=== PATIENT | female | born 1935 | race Caucasian/White ===

== ENCOUNTER 2020-09-30 14:09 | Inpatient (IN) | payer MEDICARE ==
[2020-09-30] MEDS ORDERED: Sodium Chloride 0.9% 10 ML Syringe FLUSH PRN (14:46)
--- NOTE | 2020-09-30 15:04 | EDM.PDOC ---
ED HPI GENERAL MEDICAL PROBLEM - General Chief Complaint: Fever Stated Complaint: FEVER Time Seen by Provider: 09/30/20 14:34 Source of Information: Reports: Patient, RN Notes Reviewed (Vital signs: Heart rate 112, temperature 99.2 F, respiratory rate of 20 breaths/min, blood pressure is 134/65, O2 sats are 97% on room air.) History Limitations: Reports: No Limitations - History of Present Illness INITIAL COMMENTS - FREE TEXT/NARRATIVE: Patient is an 84-year-old female who presents to the ED for a fever and sore throat. Patient notes that this has been present since around Tuesday, she notes that she has not been eating much because severely hurts to swallow anything. She has also been treating ongoing urinary tract infections, and last finished her antibiotic on morning. Patient states she does have a history of fibromyalgia, and notes that she aches constantly, specifically in her knees which seem to be worse today as well. Patient notes that she has been on 2 different antibiotic courses in August for the urinary tract infection. She is complaining of some mild nausea but no vomiting or diarrhea, no cough or shortness of breath or any sort of chest pain or discomfort. She is denying any dysuria, frequency or urgency. She has had a fever at home as high as 102F and she is taken some Tylenol and that seems to help. Patient's primary care provider is Norma Faria but also sees Maria M Tovar in the clinic. Generalized Pain Score (Numeric/FACES): 6 Buttock Pain Score (Numeric/FACES): 2 lower back/bilateral knee Pain Score (Numeric/FACES): 5 - Related Data Allergies Allergy/AdvReac Type Severity Reaction Status Date / Time Iodinated Contrast Media Allergy Hives Verified 09/30/20 14:43 iodine Allergy Hives Verified 09/30/20 14:43 Penicillins Allergy Hives Verified 09/30/20 14:43 Sulfa (Sulfonamide Allergy Hives Verified 09/30/20 14:43 Antibiotics) Home Meds: Home Meds Amitriptyline [Elavil] 25 mg PO BEDTIME 09/30/20 [History] Brimonidine Tartrate [Brimonidine Tartrate 0.2% Ophth Soln] 1 drop EYEBOTH BID 09/30/20 [History] Hydrochlorothiazide/Lisinopril [Lisinopril/HCTZ 20-12.5 MG] 20 - 25 mg PO DAILY 09/30/20 [History] metFORMIN [Glucophage] 500 mg PO DAILY 09/30/20 [History] traMADol [Ultram] 50 - 100 mg PO Q6H PRN 09/30/20 [History] ED ROS ENT - Review of Systems Review Of Systems: Comprehensive ROS is negative, except as noted in HPI. ED EXAM, ENT - Physical Exam Exam: See Below Exam Limited By: No Limitations General Appearance: Alert, WD/WN, No Apparent Distress Nose: Normal Inspection Mouth/Throat: Normal Inspection, Normal Gums, Normal Lips, Normal Teeth, Tonsillar Erythema (bilateral) Head: Atraumatic, Normocephalic Neck: Normal Inspection, Supple, Non-Tender, Full Range of Motion Respiratory/Chest: No Respiratory Distress, Lungs Clear, Normal Breath Sounds, No Accessory Muscle Use, Chest Non-Tender Cardiovascular: Normal Peripheral Pulses, Regular Rate, Rhythm, No Edema GI/Abdominal: Normal Bowel Sounds, Soft, Non-Tender, No Distention, No Mass Extremities: Normal Inspection, Normal Capillary Refill Neurological: Alert, Oriented, Normal Cognition, No Motor/Sensory Deficits Psychiatric: Normal Affect, Normal Mood Skin: Warm, Dry, Intact, Normal Color, No Rash #1 Interpretation EKG Date: 09/30/20 Time: 15:50 Rhythm: NSR (sinus arryhthmia) Rate (Beats/Min): 94 [place]onda: Normal P-Wave: Present QRS: Normal ST-T: Normal QT: Normal Comparison: NA - No Prior EKG EKG Interpretation Comments: No obvious ischemia or acute ST changes noted, reviewed by myself and Dr. Ryan. Course - Vital Signs Last Recorded V/S: Last Vital Signs Temp 97.3 F 10/02/20 15:43 Pulse 77 10/02/20 15:43 Resp 19 10/02/20 15:43 BP 118/65 10/02/20 15:43 Pulse Ox 96 10/02/20 17:20 - Orders/Labs/Meds Orders: Active Orders 24 hr Category Date Time Status CBC WITH AUTO DIFF [HEME] DAILY Lab 10/03/20 05:00 Ordered CBC WITH AUTO DIFF [HEME] DAILY Lab 10/04/20 05:00 Ordered CBC WITH AUTO DIFF [HEME] DAILY Lab 10/05/20 05:00 Ordered Medication Orders Acetaminophen (Tylenol) 650 mg RECTAL Q6H PRN PRN Reason: Pain (mild 1-3) Albuterol/Ipratropium (Duoneb 3.0-0.5 Mg/3 Ml) 3 ml NEB Q4H PRN PRN Reason: Shortness Of Breath/wheezing Azithromycin (Zithromax) 500 mg PO DAILY [facility] Stop: 10/04/20 09:01 Last Admin: 10/02/20 11:00 Dose: 500 mg Documented by: OWEN Benzocaine/Menthol (Cepacol Sore Throat) 1 lozenge MUCMEM Q2HR PRN PRN Reason: Sore Throat Last Admin: 10/02/20 20:23 Dose: 1 lozenge Documented by: Admin: 10/02/20 11:00 Dose: 1 lozenge Documented by: OWEN Brimonidine Tartrate (Alphagan 0.2% Ophth Soln) 0 ml EYEBOTH BID [facility] Last Admin: 10/02/20 20:24 Dose: 1 drop Documented by: Admin: 10/02/20 09:01 Dose: 1 drop Documented by: Admin: 10/01/20 21:17 Dose: 1 drop Documented by: Admin: 10/01/20 08:42 Dose: 1 drop Documented by: SAMAN Cholecalciferol (Vitamin D3) 10,000 unit PO DAILY [facility] Last Admin: 10/02/20 09:01 Dose: 10,000 unit Documented by: Admin: 10/01/20 10:58 Dose: 10,000 unit Documented by: SAMAN Docusate Sodium (Colace) 100 mg PO BID PRN PRN Reason: Constipation Enoxaparin Sodium (Lovenox) 40 mg SUBCUT DAILY [facility] Last Admin: 10/02/20 09:02 Dose: 40 mg Documented by: OWEN Famotidine (Pepcid) 20 mg PO BEDTIME [facility] Last Admin: 10/02/20 20:23 Dose: 20 mg Documented by: BRAD Hydralazine HCl (Apresoline) 10 mg IVPUSH Q4H PRN PRN Reason: Hypertension Promethazine HCl 12.5 mg/ (Sodium Chloride) 50.5 mls @ 100 mls/hr IV Q6H PRN PRN Reason: Nausea/Vomiting Norepinephrine Bitartrate 4 mg (/ Dextrose/Water) 250 mls @ 7.5 mls/hr IV TITRATE [facility]; Protocol Last Titration: 10/01/20 08:43 Dose: 0 mcg/min, 0 mls/hr Documented by: Titration: 10/01/20 05:30 Dose: 1 mcg/min, 3.75 mls/hr Documented by: Titration: 10/01/20 01:43 Dose: 2 mcg/min, 7.5 mls/hr Documented by: Titration: 10/01/20 01:31 Dose: 3 mcg/min, 11.25 mls/hr Documented by: Titration: 09/30/20 23:41 Dose: 4 mcg/min, 15 mls/hr Documented by: Admin: 09/30/20 23:25 Dose: 2 mcg/min, 7.5 mls/hr Documented by: TYRA Ceftriaxone Sodium 2 gm/ (Sodium Chloride) 100 mls @ 200 mls/hr IV Q24H [facility] Last Admin: 10/02/20 20:22 Dose: 200 mls/hr Documented by: Infusion: 10/01/20 21:41 Dose: 200 mls/hr Documented by: Admin: 10/01/20 21:11 Dose: 200 mls/hr Documented by: YAJAIRA Insulin Human Lispro (Humalog) 0 unit SUBCUT QIDACANDBED [facility]; Protocol Last Admin: 10/02/20 17:20 Dose: Not Given Documented by: Admin: 10/02/20 12:15 Dose: 4 unit Documented by: Admin: 10/02/20 07:03 Dose: Not Given Documented by: Admin: 10/01/20 22:03 Dose: 1 unit Documented by: Admin: 10/01/20 17:49 Dose: Not Given Documented by: Admin: 10/01/20 11:03 Dose: 1 unit Documented by: Admin: 10/01/20 07:01 Dose: Not Given Documented by: Admin: 10/01/20 01:35 Dose: Not Given Documented by: AR Oxycodone HCl (Oxycodone) 5 mg PO Q6H PRN PRN Reason: Pain (moderate 4-6) Last Admin: 10/02/20 17:21 Dose: 5 mg Documented by: Admin: 10/02/20 09:01 Dose: 5 mg Documented by: Admin: 10/01/20 22:02 Dose: 5 mg Documented by: Admin: 10/01/20 15:47 Dose: 5 mg Documented by: Admin: 10/01/20 08:42 Dose: 5 mg Documented by: Admin: 10/01/20 01:09 Dose: 5 mg Documented by: AR Sanchez (Florastor) 500 mg PO BID [facility] Last Admin: 10/02/20 20:23 Dose: 500 mg Documented by: Admin: 10/02/20 09:01 Dose: 500 mg Documented by: Admin: 10/01/20 21:11 Dose: 500 mg Documented by: YAJAIRA Simvastatin (Zocor) 20 mg PO BEDTIME [facility] Last Admin: 10/02/20 20:23 Dose: 20 mg Documented by: Admin: 10/01/20 21:11 Dose: 20 mg Documented by: Admin: 10/01/20 00:56 Dose: 20 mg Documented by: AR Sodium Chloride (Saline Flush) 10 ml FLUSH ASDIRECTED PRN PRN Reason: Keep Vein Open Last Admin: 09/30/20 15:05 Dose: 10 ml Documented by: JADIEL Labs: Laboratory Tests 09/30/20 09/30/20 09/30/20 Range/Units 15:05 15:05 15:05 WBC 5.77 (3.98-10.04) K/mm3 RBC 4.12 (3.98-5.22) M/mm3 Hgb 11.4 (11.2-15.7) gm/dl Hct 36.3 (34.1-44.9) % MCV 88.1 (79.4-94.8) fl MCH 27.7 (25.6-32.2) pg MCHC 31.4 L (32.2-35.5) g/dl RDW Std Deviation 48.8 H (36.4-46.3) fL Plt Count 317 (182-369) K/mm3 MPV 10.0 (9.4-12.3) fl Neutrophils % (Manual) 75 H (40-60) % Band Neutrophils % 7 (0-10) % Lymphocytes % (Manual) 15 L (20-40) % Atypical Lymphs % 0 % Monocytes % (Manual) 3 (2-10) % Eosinophils % (Manual) 0 L (0.7-5.8) % Basophils % (Manual) 0 L (0.1-1.2) Toxic Granulation 2+ moderate Platelet Estimate Adequate Plt Morphology Comment Normal Anisocytosis 1+ slight RBC Morph Comment Not Reportable PT 10.5 (9.7-12.0) SECONDS INR 0.98 APTT 32.5 H (21.7-31.4) SECONDS D-Dimer, Quantitative 2.08 H (0.19-0.50) mg/L Puncture Site ABG pH (7.35-7.45) ABG pCO2 (35.0-45.0) mmHg ABG pO2 (80.0-100.0) mmHg ABG HCO3 (22.0-26.0) meq/L ABG O2 Saturation (96.0-97.0) % ABG Base Excess (-2-2.0) Andrés Test A-a Gradient mmHg O2 Delivery Device Oxygen Flow Rate FiO2 (21.00-100.00) % Sodium (136-145) mEq/L Potassium (3.5-5.1) mEq/L Chloride (98-107) mEq/L Carbon Dioxide (21-32) mEq/L Anion Gap (5-15) BUN (7-18) mg/dL Creatinine (0.55-1.02) mg/dL Est Cr Clr Drug Dosing mL/min Estimated GFR (MDRD) (>60) mL/min BUN/Creatinine Ratio (14-18) Glucose (83-115) mg/dL Lactic Acid (0.4-2.0) mmol/L Calcium (8.5-10.1) mg/dL Magnesium (1.8-2.4) mg/dl Ferritin (8-252) ng/ml Total Bilirubin (0.2-1.0) mg/dL AST (15-37) U/L ALT (14-59) U/L Alkaline Phosphatase (46-116) U/L Lactate Dehydrogenase (81-234) U/L Troponin I (0.00-0.056) ng/mL C-Reactive Protein 10.3 H* (<1.0) mg/dL NT-Pro-B Natriuret Pep (0-450) pg/mL Total Protein (6.4-8.2) g/dl Albumin (3.4-5.0) g/dl Globulin gm/dL Albumin/Globulin Ratio (1-2) Urine Color (Yellow) Urine Appearance (Clear) Urine pH (5.0-8.0) Ur Specific [place] (1.005-1.030) Urine Protein (Negative) Urine Glucose (UA) (Negative) Urine Ketones (Negative) Urine Occult Blood (Negative) Urine Nitrite (Negative) Urine Bilirubin (Negative) Urine Urobilinogen (0.2-1.0) Ur Leukocyte Esterase (Negative) U Hyaline Cast (Auto) (0-5) /lpf Urine RBC (0-5) /hpf Urine WBC (0-5) /hpf Ur Squamous Epith Cells (0-5) /hpf Amorphous Sediment (NOT SEEN) /hpf Urine Bacteria (FEW) /hpf Urine Mucus (FEW) /hpf Influenza Type A RNA (NEGATIVE) Influenza Type B RNA (NEGATIVE) SARS-CoV-2 RNA (HOLDEN) (NEGATIVE) Group A Strep (PCR) (NOT DETECT) 09/30/20 09/30/20 09/30/20 Range/Units 15:05 15:05 15:05 WBC (3.98-10.04) K/mm3 RBC (3.98-5.22) M/mm3 Hgb (11.2-15.7) gm/dl Hct (34.1-44.9) % MCV (79.4-94.8) fl MCH (25.6-32.2) pg MCHC (32.2-35.5) g/dl RDW Std Deviation (36.4-46.3) fL Plt Count (182-369) K/mm3 MPV (9.4-12.3) fl Neutrophils % (Manual) (40-60) % Band Neutrophils % (0-10) % Lymphocytes % (Manual) (20-40) % Atypical Lymphs % % Monocytes % (Manual) (2-10) % Eosinophils % (Manual) (0.7-5.8) % Basophils % (Manual) (0.1-1.2) Toxic Granulation Platelet Estimate Plt Morphology Comment Anisocytosis RBC Morph Comment PT (9.7-12.0) SECONDS INR APTT (21.7-31.4) SECONDS D-Dimer, Quantitative (0.19-0.50) mg/L Puncture Site ABG pH (7.35-7.45) ABG pCO2 (35.0-45.0) mmHg ABG pO2 (80.0-100.0) mmHg ABG HCO3 (22.0-26.0) meq/L ABG O2 Saturation (96.0-97.0) % ABG Base Excess (-2-2.0) Andrés Test A-a Gradient mmHg O2 Delivery Device Oxygen Flow Rate FiO2 (21.00-100.00) % Sodium 136 (136-145) mEq/L Potassium 3.7 (3.5-5.1) mEq/L Chloride 95 L (98-107) mEq/L Carbon Dioxide 30 (21-32) mEq/L Anion Gap 14.7 (5-15) BUN 21 H (7-18) mg/dL Creatinine 1.3 H (0.55-1.02) mg/dL Est Cr Clr Drug Dosing 28.99 mL/min Estimated GFR (MDRD) 39 (>60) mL/min BUN/Creatinine Ratio 16.2 (14-18) Glucose 126 H (83-115) mg/dL Lactic Acid (0.4-2.0) mmol/L Calcium 8.6 (8.5-10.1) mg/dL Magnesium 1.2 L (1.8-2.4) mg/dl Ferritin 141 (8-252) ng/ml Total Bilirubin 0.4 (0.2-1.0) mg/dL AST 25 (15-37) U/L ALT 28 (14-59) U/L Alkaline Phosphatase 81 (46-116) U/L Lactate Dehydrogenase 218 (81-234) U/L Troponin I < 0.017 (0.00-0.056) ng/mL C-Reactive Protein (<1.0) mg/dL NT-Pro-B Natriuret Pep 474 H (0-450) pg/mL Total Protein 7.4 (6.4-8.2) g/dl Albumin 2.7 L (3.4-5.0) g/dl Globulin 4.7 gm/dL Albumin/Globulin Ratio 0.6 L (1-2) Urine Color (Yellow) Urine Appearance (Clear) Urine pH (5.0-8.0) Ur Specific [place] (1.005-1.030) Urine Protein (Negative) Urine Glucose (UA) (Negative) Urine Ketones (Negative) Urine Occult Blood (Negative) Urine Nitrite (Negative) Urine Bilirubin (Negative) Urine Urobilinogen (0.2-1.0) Ur Leukocyte Esterase (Negative) U Hyaline Cast (Auto) (0-5) /lpf Urine RBC (0-5) /hpf Urine WBC (0-5) /hpf Ur Squamous Epith Cells (0-5) /hpf Amorphous Sediment (NOT SEEN) /hpf Urine Bacteria (FEW) /hpf Urine Mucus (FEW) /hpf Influenza Type A RNA (NEGATIVE) Influenza Type B RNA (NEGATIVE) SARS-CoV-2 RNA (HOLDEN) (NEGATIVE) Group A Strep (PCR) (NOT DETECT) 09/30/20 09/30/20 09/30/20 Range/Units 15:05 15:10 15:10 WBC (3.98-10.04) K/mm3 RBC (3.98-5.22) M/mm3 Hgb (11.2-15.7) gm/dl Hct (34.1-44.9) % MCV (79.4-94.8) fl MCH (25.6-32.2) pg MCHC (32.2-35.5) g/dl RDW Std Deviation (36.4-46.3) fL Plt Count (182-369) K/mm3 MPV (9.4-12.3) fl Neutrophils % (Manual) (40-60) % Band Neutrophils % (0-10) % Lymphocytes % (Manual) (20-40) % Atypical Lymphs % % Monocytes % (Manual) (2-10) % Eosinophils % (Manual) (0.7-5.8) % Basophils % (Manual) (0.1-1.2) Toxic Granulation Platelet Estimate Plt Morphology Comment Anisocytosis RBC Morph Comment PT (9.7-12.0) SECONDS INR APTT (21.7-31.4) SECONDS D-Dimer, Quantitative (0.19-0.50) mg/L Puncture Site ABG pH (7.35-7.45) ABG pCO2 (35.0-45.0) mmHg ABG pO2 (80.0-100.0) mmHg ABG HCO3 (22.0-26.0) meq/L ABG O2 Saturation (96.0-97.0) % ABG Base Excess (-2-2.0) Andrés Test A-a Gradient mmHg O2 Delivery Device Oxygen Flow Rate FiO2 (21.00-100.00) % Sodium (136-145) mEq/L Potassium (3.5-5.1) mEq/L Chloride (98-107) mEq/L Carbon Dioxide (21-32) mEq/L Anion Gap (5-15) BUN (7-18) mg/dL Creatinine (0.55-1.02) mg/dL Est Cr Clr Drug Dosing mL/min Estimated GFR (MDRD) (>60) mL/min BUN/Creatinine Ratio (14-18) Glucose (83-115) mg/dL Lactic Acid 2.5 H* (0.4-2.0) mmol/L Calcium (8.5-10.1) mg/dL Magnesium (1.8-2.4) mg/dl Ferritin (8-252) ng/ml Total Bilirubin (0.2-1.0) mg/dL AST (15-37) U/L ALT (14-59) U/L Alkaline Phosphatase (46-116) U/L Lactate Dehydrogenase (81-234) U/L Troponin I (0.00-0.056) ng/mL C-Reactive Protein (<1.0) mg/dL NT-Pro-B Natriuret Pep (0-450) pg/mL Total Protein (6.4-8.2) g/dl Albumin (3.4-5.0) g/dl Globulin gm/dL Albumin/Globulin Ratio (1-2) Urine Color (Yellow) Urine Appearance (Clear) Urine pH (5.0-8.0) Ur Specific [place] (1.005-1.030) Urine Protein (Negative) Urine Glucose (UA) (Negative) Urine Ketones (Negative) Urine Occult Blood (Negative) Urine Nitrite (Negative) Urine Bilirubin (Negative) Urine Urobilinogen (0.2-1.0) Ur Leukocyte Esterase (Negative) U Hyaline Cast (Auto) (0-5) /lpf Urine RBC (0-5) /hpf Urine WBC (0-5) /hpf Ur Squamous Epith Cells (0-5) /hpf Amorphous Sediment (NOT SEEN) /hpf Urine Bacteria (FEW) /hpf Urine Mucus (FEW) /hpf Influenza Type A RNA Negative (NEGATIVE) Influenza Type B RNA Negative (NEGATIVE) SARS-CoV-2 RNA (HOLDEN) Positive H (NEGATIVE) Group A Strep (PCR) Not detected (NOT DETECT) 09/30/20 09/30/20 09/30/20 Range/Units 15:30 18:50 19:57 WBC (3.98-10.04) K/mm3 RBC (3.98-5.22) M/mm3 Hgb (11.2-15.7) gm/dl Hct (34.1-44.9) % MCV (79.4-94.8) fl MCH (25.6-32.2) pg MCHC (32.2-35.5) g/dl RDW Std Deviation (36.4-46.3) fL Plt Count (182-369) K/mm3 MPV (9.4-12.3) fl Neutrophils % (Manual) (40-60) % Band Neutrophils % (0-10) % Lymphocytes % (Manual) (20-40) % Atypical Lymphs % % Monocytes % (Manual) (2-10) % Eosinophils % (Manual) (0.7-5.8) % Basophils % (Manual) (0.1-1.2) Toxic Granulation Platelet Estimate Plt Morphology Comment Anisocytosis RBC Morph Comment PT (9.7-12.0) SECONDS INR APTT (21.7-31.4) SECONDS D-Dimer, Quantitative (0.19-0.50) mg/L Puncture Site Lt radial ABG pH 7.48 H (7.35-7.45) ABG pCO2 32.9 L (35.0-45.0) mmHg ABG pO2 56.0 L (80.0-100.0) mmHg ABG HCO3 24.2 (22.0-26.0) meq/L ABG O2 Saturation 86.1 L (96.0-97.0) % ABG Base Excess 1.4 (-2-2.0) Andrés Test Positive A-a Gradient 52 mmHg O2 Delivery Device Room air Oxygen Flow Rate 0.0 FiO2 21.00 (21.00-100.00) % Sodium (136-145) mEq/L Potassium (3.5-5.1) mEq/L Chloride (98-107) mEq/L Carbon Dioxide (21-32) mEq/L Anion Gap (5-15) BUN (7-18) mg/dL Creatinine (0.55-1.02) mg/dL Est Cr Clr Drug Dosing mL/min Estimated GFR (MDRD) (>60) mL/min BUN/Creatinine Ratio (14-18) Glucose (83-115) mg/dL Lactic Acid 2.0 (0.4-2.0) mmol/L Calcium (8.5-10.1) mg/dL Magnesium (1.8-2.4) mg/dl Ferritin (8-252) ng/ml Total Bilirubin (0.2-1.0) mg/dL AST (15-37) U/L ALT (14-59) U/L Alkaline Phosphatase (46-116) U/L Lactate Dehydrogenase (81-234) U/L Troponin I (0.00-0.056) ng/mL C-Reactive Protein (<1.0) mg/dL NT-Pro-B Natriuret Pep (0-450) pg/mL Total Protein (6.4-8.2) g/dl Albumin (3.4-5.0) g/dl Globulin gm/dL Albumin/Globulin Ratio (1-2) Urine Color Dark yellow (Yellow) Urine Appearance Clear (Clear) Urine pH 5.5 (5.0-8.0) Ur Specific [place] 1.020 (1.005-1.030) Urine Protein 1+ H (Negative) Urine Glucose (UA) Negative (Negative) Urine Ketones Negative (Negative) Urine Occult Blood Negative (Negative) Urine Nitrite Negative (Negative) Urine Bilirubin Negative (Negative) Urine Urobilinogen 0.2 (0.2-1.0) Ur Leukocyte Esterase Negative (Negative) U Hyaline Cast (Auto) 5-10 H (0-5) /lpf Urine RBC Not seen (0-5) /hpf Urine WBC 0-5 (0-5) /hpf Ur Squamous Epith Cells 0-5 (0-5) /hpf Amorphous Sediment Few H (NOT SEEN) /hpf Urine Bacteria Rare (FEW) /hpf Urine Mucus Not seen (FEW) /hpf Influenza Type A RNA (NEGATIVE) Influenza Type B RNA (NEGATIVE) SARS-CoV-2 RNA (HOLDEN) (NEGATIVE) Group A Strep (PCR) (NOT DETECT) Meds: Medications Generic Name Dose Route Start Last Admin Trade Name Freq PRN Reason Stop Dose Admin Acetaminophen 650 mg 09/30/20 21:37 Tylenol RECTAL Q6H PRN Pain (mild 1-3) Albuterol/Ipratropium 3 ml 09/30/20 21:37 Duoneb 3.0-0.5 Mg/3 Ml NEB Q4H PRN Shortness Of Breath/wheezing Azithromycin 500 mg 10/02/20 10:30 10/02/20 11:00 Zithromax PO 10/04/20 09:01 500 mg DAILY ROSEANNA Administration Benzocaine/Menthol 1 lozenge 10/02/20 10:51 10/02/20 20:23 Cepacol Sore Throat MUCMEM 1 lozenge Q2HR PRN Administration Sore Throat Brimonidine Tartrate 0 ml 10/01/20 09:00 10/02/20 20:24 Alphagan 0.2% Ophth Soln EYEBOTH 1 drop BID ROSEANNA Administration Cholecalciferol 10,000 unit 10/01/20 10:45 10/02/20 09:01 Vitamin D3 PO 10,000 unit DAILY ROSEANNA Administration Docusate Sodium 100 mg 09/30/20 21:37 Colace PO BID PRN Constipation Enoxaparin Sodium 40 mg 10/02/20 09:00 10/02/20 09:02 Lovenox SUBCUT 40 mg DAILY ROSEANNA Administration Famotidine 20 mg 10/02/20 21:00 10/02/20 20:23 Pepcid PO 20 mg BEDTIME ROSEANNA Administration Hydralazine HCl 10 mg 09/30/20 21:47 Apresoline IVPUSH Q4H PRN Hypertension Promethazine HCl 12.5 mg/ 50.5 mls @ 100 mls/hr 09/30/20 21:37 Sodium Chloride IV Q6H PRN Nausea/Vomiting Norepinephrine Bitartrate 4 mg 250 mls @ 7.5 mls/hr 09/30/20 23:15 10/01/20 08:43 / Dextrose/Water IV 0 mcg/min TITRATE ROSEANNA 0 mls/hr Titration Protocol 2 MCG/MIN Ceftriaxone Sodium 2 gm/ 100 mls @ 200 mls/hr 10/01/20 21:00 10/02/20 20:22 Sodium Chloride IV 200 mls/hr Q24H ROSEANNA Administration Insulin Human Lispro 0 unit 09/30/20 22:00 10/02/20 17:20 Humalog SUBCUT Not Given QIDACANDBED [facility] Protocol Oxycodone HCl 5 mg 09/30/20 21:37 10/02/20 17:21 Oxycodone PO 5 mg Q6H PRN Administration Pain (moderate 4-6) Saccharomyces Boulardii 500 mg 10/01/20 21:00 10/02/20 20:23 Florastor PO 500 mg BID ROSEANNA Administration Simvastatin 20 mg 09/30/20 23:58 10/02/20 20:23 Zocor PO 20 mg BEDTIME ROSEANNA Administration Sodium Chloride 10 ml 09/30/20 14:46 09/30/20 15:05 Saline Flush FLUSH 10 ml ASDIRECTED PRN Administration Keep Vein Open Discontinued Medications Generic Name Dose Route Start Last Admin Trade Name Freq PRN Reason Stop Dose Admin Acetaminophen 650 mg 09/30/20 20:23 09/30/20 20:33 Tylenol PO 09/30/20 20:24 650 mg NOW ONE Administration Amitriptyline HCl 25 mg 10/01/20 21:00 10/01/20 21:11 Elavil PO 25 mg BEDTIME ROSEANNA Administration Aspirin 81 mg 10/01/20 09:00 Halfprin PO DAILY ROSEANNA Diphenhydramine HCl 50 mg 09/30/20 16:24 Benadryl IVPUSH ONETIME PRN hypersensitivity reaction Enoxaparin Sodium 60 mg 09/30/20 22:15 10/01/20 03:48 Lovenox SUBCUT Not Given DAILY ROSEANNA Enoxaparin Sodium 60 mg 09/30/20 23:45 10/01/20 00:58 Lovenox SUBCUT 60 mg DAILY ROSEANNA Administration Enoxaparin Sodium 60 mg 10/01/20 21:00 Lovenox SUBCUT BEDTIME ROSEANNA Epinephrine HCl 0.3 mg 09/30/20 16:24 Adrenalin IM ONETIME PRN hypersensitivity reaction Famotidine 20 mg 09/30/20 16:24 10/01/20 01:09 Pepcid IVPUSH 20 mg ONETIME PRN Administration hypersensitivity reaction Famotidine 20 mg 10/01/20 21:45 10/01/20 22:03 Pepcid PO 20 mg BID ROSEANNA Administration Heparin Sodium (Porcine) 5,000 units 09/30/20 22:00 10/01/20 03:48 Heparin Sodium SUBCUT Not Given Q8H ROSEANNA Hydrochlorothiazide 25 mg 10/01/20 21:00 10/01/20 21:11 Hydrochlorothiazide PO 25 mg BEDTIME ROSEANNA Administration Magnesium Sulfate 2 gm/ Premix 50 mls @ 25 mls/hr 09/30/20 16:30 09/30/20 20:43 IV 09/30/20 18:29 Not Given Q1H ROSEANNA Non-Formulary Medication 1,200 250 mls @ 250 mls/hr 09/30/20 16:24 09/30/20 17:06 mg/ Non-Formulary Medication IV 09/30/20 17:23 250 mls/hr 1,200 mg/ Sodium Chloride ONETIME ONE Administration Sodium Chloride 1,000 mls @ 500 mls/hr 09/30/20 16:25 09/30/20 16:41 Normal Saline IV 09/30/20 18:24 500 mls/hr ONETIME ONE Administration Sodium Chloride 1,000 mls @ 500 mls/hr 09/30/20 16:32 09/30/20 18:20 Normal Saline IV 09/30/20 18:31 500 mls/hr ONETIME ONE Administration Sodium Chloride 1,000 mls @ 50 mls/hr 09/30/20 21:45 10/01/20 01:20 Normal Saline IV 50 mls/hr ASDIRECTED ROSEANNA Administration Sodium Chloride 500 mls @ 999 mls/hr 09/30/20 22:39 09/30/20 22:47 Normal Saline IV 09/30/20 23:09 999 mls/hr .BOLUS ONE Administration Ceftriaxone Sodium 1 gm/ 100 mls @ 200 mls/hr 09/30/20 22:45 09/30/20 22:55 Sodium Chloride IV 200 mls/hr Q24H ROSEANNA Administration Magnesium Sulfate 4 gm/ Premix 50 mls @ 12.5 mls/hr 10/01/20 10:37 10/01/20 10:58 IV 10/01/20 14:36 12.5 mls/hr ONETIME ONE Administration Lactated Ringer's 1,000 mls @ 999 mls/hr 10/02/20 00:25 10/02/20 00:44 Ringers, Lactated IV 10/02/20 01:25 999 mls/hr .BOLUS ONE Administration Magnesium Oxide 800 mg 09/30/20 16:45 09/30/20 17:18 Magnesium Oxide PO 09/30/20 16:46 800 mg ONETIME ONE Administration Methylprednisolone Sodium Succinate 125 mg 09/30/20 16:24 Solu-Medrol IVPUSH ONETIME PRN hypersensitivity reaction Morphine Sulfate 2 mg 09/30/20 21:37 09/30/20 22:21 Morphine IVPUSH 10/01/20 21:41 2 mg Q4H PRN Administration Pain (severe 7-10) Ondansetron HCl 4 mg 09/30/20 19:54 09/30/20 20:09 Zofran IVPUSH 09/30/20 19:55 4 mg ONETIME ONE Administration Potassium Chloride 40 meq 10/01/20 10:36 10/01/20 10:58 Klor-Con M20 PO 10/01/20 10:37 40 meq ONETIME ONE Administration Potassium Chloride 40 meq 10/02/20 10:34 10/02/20 11:00 Klor-Con M20 PO 10/02/20 10:35 40 meq ONETIME ONE Administration Sodium Chloride 30 ml 09/30/20 16:30 09/30/20 18:15 Saline Flush FLUSH 30 ml ASDIRECTED ROSEANNA Administration Tramadol HCl 100 mg 09/30/20 20:02 09/30/20 20:43 Ultram PO 09/30/20 20:03 Not Given ONETIME ONE - Re-Assessments/Exams Free Text/Narrative Re-Assessment/Exam: 09/30/20 15:04 Patient presents to the ED for the evaluation of her fever and sore throat, we will go ahead and get a multitude of labs at today's visit, for thorough evaluation to make sure that we can try to figure out what is causing her fever. Patient will have a COVID-19 swab, chest x-ray, EKG, get a multitude of labs and a strep screen for further evaluation. 09/30/20 16:00 Was made aware by nursing staff that the patient is a possible sepsis risk. Patient's blood pressure is okay at this time, and she is not hypotensive so we will hold off on fluids until we can get a theoretical source of infection per se. The patient's white cell count is 5.77, with 75% neutrophils and 7 bands reported , and urinalysis looks okay. Chest x-ray has been performed but official radiology read is pending. The patient's EKG is okay as well with no acute ST abnormalities. 09/30/20 16:25 The patient's D-dimer did come back elevated at 2.08, strep screen was negative but the COVID-19 screen was positive at today's visit. Metabolic panel is still pending at this time. The patient's chest x-ray is without acute findings. The patient's metabolic panel did result, magnesium is low at 1.2, CRP is elevated at 10. The patient's does have kidney dysfunction along with an IV contrast allergy, so we will forego CTA of the patient's chest due to the elevated D- dimer, as it is likely due to the patient's ongoing COVID-19 disease. Patient wi ll receive 4 g magnesium due to her low magnesium level, and some IV fluids while in the ER. I spoke with Patient and daughter to provide information about Regeneron treatment. I offered them the "Patient and caregiver EUA Regeneron fact sheet" to read and review. I stated that the drug has been approved by an emergency use authorization (EUA) process and has not been fully FDA reviewed or approved. The patient meets the EUA requirements. I discussed there are other potential treatment options that are currently not FDA approved to treat COVID- 19. I did offer an opportunity to ask questions and all questions were answered. Patient voiced understanding and agreed to proceed with the treatment. The patient did have a family member present in the room, and the family member has since been asked to leave due to the new finding of the ongoing COVID-19 disease, I did caution her that she should go home, and self quarantine and continue to watch her symptoms, family member verbalized understanding. 09/30/20 18:01 Patient is just about finished with her Regeneron, and tolerated this well. She will be given 2 g magnesium by IV, she was also given 800 mg oral magnesium for supplementation due to nursing staff not wanting to run the magnesium concurrently with the monoclonal antibodies. This will just prolong the patie nt's time in the ER however she should still be able to go home after the magnesium is done. 09/30/20 20:03 I was made aware by nursing staff, roughly 10 to 15 minutes ago, the patient's O2 sats have become a little bit low, and are anywhere from 85 to 86%, patient is in no visible respiratory distress, however she is complaining of her back hurting. She attributes this to laying in the ER cot for as long as she has. She does take tramadol for her fibromyalgia, and I have ordered that for pain management and she states that her nausea is also kind of bad so I did order 4 mg IV Zofran. Have ordered repeat chest x-ray, and a baseline ABG at this time. Patient will likely need hospital admission, I did speak with the patient and family, and they seem to have verbalized understanding at this point. The repeat lactic acid was down to 2.0. I am awaiting a repeat chest x-ray, to see if she is retaining fluid due to the IV fluids given in the ER. 09/30/20 20:19 The patient's blood gas did demonstrate a low PO2 of 56.0. She does not look to be in any sort of respiratory failure, just suffering from hypoxemia. Patient has been placed on 2 L via nasal cannula. 09/30/20 20:44 Second chest x-ray does show some slight pulmonary vascular congestion starting. This was read by myself and Dr. Goldstein. I will call our hospitalist, Dr. Allen for hospital admission at this time due to hypoxemia from ongoing COVID- 19/pulmonary vascular congestion. 09/30/20 20:54 Dr. Allen does ultimately accept for admission. Departure - Departure Time of Disposition: 20:54 Disposition: Admitted As Inpatient 66 Condition: Good Clinical Impression: COVID-19, Hypoxemia - Discharge Information *PRESCRIPTION DRUG MONITORING PROGRAM REVIEWED*: No *COPY OF PRESCRIPTION DRUG MONITORING REPORT IN PATIENT ECHO: No Sepsis Event Note (ED) - Evaluation Sepsis Screening Result: No Definite Risk
[2020-09-30 16:12] LABS: CORONAVIRUS COVID-19 NAA POSITIVE (NEGATIVE)
[2020-09-30] MEDS ORDERED: methylPREDNISolone Sodium Succinate 125 MG/2 ML SDV IVPUSH PRN (16:24)
[2020-09-30] MEDS ORDERED: Famotidine 20 MG/2 ML SDV IVPUSH PRN (16:24)
[2020-09-30] MEDS ORDERED: EPINEPHrine 1 MG/ML SDV IM PRN (16:24)
[2020-09-30] MEDS ORDERED: diphenhydrAMINE 50 MG/ML SDV IVPUSH PRN (16:24)
[2020-09-30] MEDS ORDERED: Casirivimab 1,200 MG, Imdevimab 1,200 MG in Sodium Chloride 0.9% 230 ML IV ONE (16:24)
[2020-09-30] MEDS ORDERED: Sodium Chloride 0.9% 1,000 ML IV ONE ×2 (16:25→16:32)
--- NOTE | 2020-09-30 16:26 | CR ---
Chest: Portable view of the chest was obtained. Comparison: No prior chest imaging is available. Heart size is normal. Tortuous thoracic aorta is seen. Lungs are clear with no acute parenchymal change. Bony structures shows osteopenia. Degenerative change is noted within both shoulders. Impression: 1. Findings as noted above. 2. Nothing acute is definitely appreciated. Diagnostic code #2
[2020-09-30] MEDS ORDERED: Sodium Chloride 0.9% 10 ML Syringe FLUSH SCH (16:30)
[2020-09-30] MEDS ORDERED: Magnesium Oxide 400 MG Tab PO ONE (16:45)
[2020-09-30] MEDS: Magnesium Sulfate/Water 2 GM in Premix Bag 1 BAG IV SCH ×2 (18:20→20:43)
[2020-09-30] MEDS ORDERED: Ondansetron 4 MG/2 ML SDV IVPUSH ONE (19:54)
[2020-09-30] MEDS ORDERED: traMADol 50 MG Tab PO ONE (20:02)
[2020-09-30] MEDS ORDERED: Acetaminophen 325 MG Tab PO ONE (20:23)
[2020-09-30] MEDS ORDERED: Acetaminophen 650 MG Supp RECTAL PRN (21:37)
[2020-09-30] MEDS ORDERED: Docusate Sodium 100 MG Cap PO PRN (21:37)
[2020-09-30] MEDS ORDERED: Albuterol/Ipratropium 3.0-0.5 MG/3 ML Neb Soln NEB PRN (21:37)
[2020-09-30] MEDS ORDERED: Morphine 2 MG/ML SYRINGE IVPUSH PRN (21:37)
[2020-09-30] MEDS ORDERED: Promethazine 12.5 MG in Sodium Chloride 0.9% 50 ML IV PRN (21:37)
[2020-09-30] MEDS ORDERED: Sodium Chloride 0.9% 1,000 ML IV SCH (21:45)
[2020-09-30] MEDS ORDERED: hydrALAZINE 20 MG/ML SDV IVPUSH PRN (21:47)
--- NOTE | 2020-09-30 21:57 | PCM.HP.2 ---
H&P History of Present Illness - General Date of Service: 09/30/20 Admit Problem/Dx: Admission Diagnosis/Problem Admission Diagnosis/Problem Respiratory failure with hypoxia Source of Information: Patient, Other (ER notes) - History of Present Illness Initial Comments - Free Text/Narative: Pt is an 84yof with a hx of HTN and recurrent UTI who presented to the ER due to fever and sore throat. Pt started to sore throat and fever 3 days ago associated with nausea. She denies darrhea, headache, dizziness, chest pain, sob, abdominal pain, or dysuria. She had several episodes of UTI and completed antibiotics recently. In the ER, she was found to have oxygen desaturation 90-. Covid 19 test was positive. CXR showed pulmonary congestion. Regeneron's COVID-19 monoclonal antibody was given Onset of Symptoms: Reports: Gradual Duration of Symptoms: Reports: Day(s): Quality: Reports: Ache Generalized Pain Score (Numeric/FACES): 6 - Related Data Allergies/Adverse Reactions: Allergies Allergy/AdvReac Type Severity Reaction Status Date / Time Iodinated Contrast Media Allergy Hives Verified 09/30/20 14:43 iodine Allergy Hives Verified 09/30/20 14:43 Penicillins Allergy Hives Verified 09/30/20 14:43 Sulfa (Sulfonamide Allergy Hives Verified 09/30/20 14:43 Antibiotics) Home Medications: Home Meds Amitriptyline [Elavil] 25 mg PO BEDTIME 09/30/20 [History] Brimonidine Tartrate [Brimonidine Tartrate 0.2% Ophth Soln] 1 drop EYEBOTH BID 09/30/20 [History] Hydrochlorothiazide/Lisinopril [Lisinopril/HCTZ 20-12.5 MG] 20 - 25 mg PO DAILY 09/30/20 [History] metFORMIN [Glucophage] 500 mg PO DAILY 09/30/20 [History] traMADol [Ultram] 50 - 100 mg PO Q6H PRN 09/30/20 [History] Past Medical History HEENT History: Reports: Cataract, Impaired Vision Other HEENT History: wears eyeglasses Cardiovascular History: Reports: Hypertension Gastrointestinal History: Reports: Diverticulosis, GERD, Irritable Bowel Syndrome Genitourinary History: Reports: UTI, Recurrent [employer] History: Reports: Musculoskeletal History: Reports: Fibromyalgia Endocrine/Metabolic History: Reports: Diabetes, Type II - Infectious Disease History Infectious Disease History: Reports: Chicken Pox, Measles, Mumps, Novel Coronavirus, Scarlet Fever - Past Surgical History HEENT Surgical History: Reports: Cataract Surgery GI Surgical History: Reports: Cholecystectomy Female Surgical History: Reports: Hysterectomy Social & Family History - Family History Family Medical History: No Pertinent Family History (Denies genetic diseases in family) - Tobacco Use Tobacco Use Status *Q: Never Tobacco User Second Hand Smoke Exposure: No - Caffeine Use Caffeine Use: Reports: Coffee - Recreational Drug Use Recreational Drug Use: No H&P Review of Systems - Review of Systems: Review Of Systems: See Below Review of Systems Comment:: Positive for fever and sore throat. All other system were reviewed and negative. Exam - Exam Exam: See Below - Vital Signs Vital Signs: Last Vital Signs Temp 37.6 C 09/30/20 20:15 Pulse 98 09/30/20 20:30 Resp 24 H 09/30/20 20:30 BP 137/65 09/30/20 20:30 Pulse Ox 93 L 09/30/20 20:30 Weight: 65.317 kg - Exam Physical Exam Comments:: Physical Exam: General: No acute distress Eyes: Conjunctival clear, EMOI, no nystagmus HEENT: Supple, no JVD, no thyromegaly Lung: Diminished breath sound, no wheezing. Heart: RRR, no m/r/g Abd: BS present, soft, no tenderness Ext: No edema or cyanosis. Neurolog: A+O x 3, no focal neurological deficits Psych: normal mood. - Patient Data Lab Results Last 24 hrs: Laboratory Results - last 24 hr 09/30/20 09/30/20 09/30/20 Range/Units 15:05 15:05 15:05 WBC 5.77 (3.98-10.04) K/mm3 RBC 4.12 (3.98-5.22) M/mm3 Hgb 11.4 (11.2-15.7) gm/dl Hct 36.3 (34.1-44.9) % MCV 88.1 (79.4-94.8) fl MCH 27.7 (25.6-32.2) pg MCHC 31.4 L (32.2-35.5) g/dl RDW Std Deviation 48.8 H (36.4-46.3) fL Plt Count 317 (182-369) K/mm3 MPV 10.0 (9.4-12.3) fl Neutrophils % (Manual) 75 H (40-60) % Band Neutrophils % 7 (0-10) % Lymphocytes % (Manual) 15 L (20-40) % Atypical Lymphs % 0 % Monocytes % (Manual) 3 (2-10) % Eosinophils % (Manual) 0 L (0.7-5.8) % Basophils % (Manual) 0 L (0.1-1.2) Toxic Granulation 2+ moderate Platelet Estimate Adequate Plt Morphology Comment Normal Anisocytosis 1+ slight RBC Morph Comment Not Reportable PT 10.5 (9.7-12.0) SECONDS INR 0.98 APTT 32.5 H (21.7-31.4) SECONDS D-Dimer, Quantitative 2.08 H (0.19-0.50) mg/L Puncture Site ABG pH (7.35-7.45) ABG pCO2 (35.0-45.0) mmHg ABG pO2 (80.0-100.0) mmHg ABG HCO3 (22.0-26.0) meq/L ABG O2 Saturation (96.0-97.0) % ABG Base Excess (-2-2.0) Andrés Test A-a Gradient mmHg O2 Delivery Device Oxygen Flow Rate FiO2 (21.00-100.00) % Sodium (136-145) mEq/L Potassium (3.5-5.1) mEq/L Chloride (98-107) mEq/L Carbon Dioxide (21-32) mEq/L Anion Gap (5-15) BUN (7-18) mg/dL Creatinine (0.55-1.02) mg/dL Est Cr Clr Drug Dosing mL/min Estimated GFR (MDRD) (>60) mL/min BUN/Creatinine Ratio (14-18) Glucose (83-115) mg/dL Lactic Acid (0.4-2.0) mmol/L Calcium (8.5-10.1) mg/dL Magnesium (1.8-2.4) mg/dl Ferritin (8-252) ng/ml Total Bilirubin (0.2-1.0) mg/dL AST (15-37) U/L ALT (14-59) U/L Alkaline Phosphatase (46-116) U/L Lactate Dehydrogenase (81-234) U/L Troponin I (0.00-0.056) ng/mL C-Reactive Protein 10.3 H* (<1.0) mg/dL NT-Pro-B Natriuret Pep (0-450) pg/mL Total Protein (6.4-8.2) g/dl Albumin (3.4-5.0) g/dl Globulin gm/dL Albumin/Globulin Ratio (1-2) Urine Color (Yellow) Urine Appearance (Clear) Urine pH (5.0-8.0) Ur Specific Docena (1.005-1.030) Urine Protein (Negative) Urine Glucose (UA) (Negative) Urine Ketones (Negative) Urine Occult Blood (Negative) Urine Nitrite (Negative) Urine Bilirubin (Negative) Urine Urobilinogen (0.2-1.0) Ur Leukocyte Esterase (Negative) U Hyaline Cast (Auto) (0-5) /lpf Urine RBC (0-5) /hpf Urine WBC (0-5) /hpf Ur Squamous Epith Cells (0-5) /hpf Amorphous Sediment (NOT SEEN) /hpf Urine Bacteria (FEW) /hpf Urine Mucus (FEW) /hpf Influenza Type A RNA (NEGATIVE) Influenza Type B RNA (NEGATIVE) SARS-CoV-2 RNA (HOLDEN) (NEGATIVE) Group A Strep (PCR) (NOT DETECT) 09/30/20 09/30/20 09/30/20 Range/Units 15:05 15:05 15:05 WBC (3.98-10.04) K/mm3 RBC (3.98-5.22) M/mm3 Hgb (11.2-15.7) gm/dl Hct (34.1-44.9) % MCV (79.4-94.8) fl MCH (25.6-32.2) pg MCHC (32.2-35.5) g/dl RDW Std Deviation (36.4-46.3) fL Plt Count (182-369) K/mm3 MPV (9.4-12.3) fl Neutrophils % (Manual) (40-60) % Band Neutrophils % (0-10) % Lymphocytes % (Manual) (20-40) % Atypical Lymphs % % Monocytes % (Manual) (2-10) % Eosinophils % (Manual) (0.7-5.8) % Basophils % (Manual) (0.1-1.2) Toxic Granulation Platelet Estimate Plt Morphology Comment Anisocytosis RBC Morph Comment PT (9.7-12.0) SECONDS INR APTT (21.7-31.4) SECONDS D-Dimer, Quantitative (0.19-0.50) mg/L Puncture Site ABG pH (7.35-7.45) ABG pCO2 (35.0-45.0) mmHg ABG pO2 (80.0-100.0) mmHg ABG HCO3 (22.0-26.0) meq/L ABG O2 Saturation (96.0-97.0) % ABG Base Excess (-2-2.0) Andrés Test A-a Gradient mmHg O2 Delivery Device Oxygen Flow Rate FiO2 (21.00-100.00) % Sodium 136 (136-145) mEq/L Potassium 3.7 (3.5-5.1) mEq/L Chloride 95 L (98-107) mEq/L Carbon Dioxide 30 (21-32) mEq/L Anion Gap 14.7 (5-15) BUN 21 H (7-18) mg/dL Creatinine 1.3 H (0.55-1.02) mg/dL Est Cr Clr Drug Dosing 28.99 mL/min Estimated GFR (MDRD) 39 (>60) mL/min BUN/Creatinine Ratio 16.2 (14-18) Glucose 126 H (83-115) mg/dL Lactic Acid (0.4-2.0) mmol/L Calcium 8.6 (8.5-10.1) mg/dL Magnesium 1.2 L (1.8-2.4) mg/dl Ferritin 141 (8-252) ng/ml Total Bilirubin 0.4 (0.2-1.0) mg/dL AST 25 (15-37) U/L ALT 28 (14-59) U/L Alkaline Phosphatase 81 (46-116) U/L Lactate Dehydrogenase 218 (81-234) U/L Troponin I < 0.017 (0.00-0.056) ng/mL C-Reactive Protein (<1.0) mg/dL NT-Pro-B Natriuret Pep 474 H (0-450) pg/mL Total Protein 7.4 (6.4-8.2) g/dl Albumin 2.7 L (3.4-5.0) g/dl Globulin 4.7 gm/dL Albumin/Globulin Ratio 0.6 L (1-2) Urine Color (Yellow) Urine Appearance (Clear) Urine pH (5.0-8.0) Ur Specific Docena (1.005-1.030) Urine Protein (Negative) Urine Glucose (UA) (Negative) Urine Ketones (Negative) Urine Occult Blood (Negative) Urine Nitrite (Negative) Urine Bilirubin (Negative) Urine Urobilinogen (0.2-1.0) Ur Leukocyte Esterase (Negative) U Hyaline Cast (Auto) (0-5) /lpf Urine RBC (0-5) /hpf Urine WBC (0-5) /hpf Ur Squamous Epith Cells (0-5) /hpf Amorphous Sediment (NOT SEEN) /hpf Urine Bacteria (FEW) /hpf Urine Mucus (FEW) /hpf Influenza Type A RNA (NEGATIVE) Influenza Type B RNA (NEGATIVE) SARS-CoV-2 RNA (HOLDEN) (NEGATIVE) Group A Strep (PCR) (NOT DETECT) 09/30/20 09/30/20 09/30/20 Range/Units 15:05 15:10 15:10 WBC (3.98-10.04) K/mm3 RBC (3.98-5.22) M/mm3 Hgb (11.2-15.7) gm/dl Hct (34.1-44.9) % MCV (79.4-94.8) fl MCH (25.6-32.2) pg MCHC (32.2-35.5) g/dl RDW Std Deviation (36.4-46.3) fL Plt Count (182-369) K/mm3 MPV (9.4-12.3) fl Neutrophils % (Manual) (40-60) % Band Neutrophils % (0-10) % Lymphocytes % (Manual) (20-40) % Atypical Lymphs % % Monocytes % (Manual) (2-10) % Eosinophils % (Manual) (0.7-5.8) % Basophils % (Manual) (0.1-1.2) Toxic Granulation Platelet Estimate Plt Morphology Comment Anisocytosis RBC Morph Comment PT (9.7-12.0) SECONDS INR APTT (21.7-31.4) SECONDS D-Dimer, Quantitative (0.19-0.50) mg/L Puncture Site ABG pH (7.35-7.45) ABG pCO2 (35.0-45.0) mmHg ABG pO2 (80.0-100.0) mmHg ABG HCO3 (22.0-26.0) meq/L ABG O2 Saturation (96.0-97.0) % ABG Base Excess (-2-2.0) Andrés Test A-a Gradient mmHg O2 Delivery Device Oxygen Flow Rate FiO2 (21.00-100.00) % Sodium (136-145) mEq/L Potassium (3.5-5.1) mEq/L Chloride (98-107) mEq/L Carbon Dioxide (21-32) mEq/L Anion Gap (5-15) BUN (7-18) mg/dL Creatinine (0.55-1.02) mg/dL Est Cr Clr Drug Dosing mL/min Estimated GFR (MDRD) (>60) mL/min BUN/Creatinine Ratio (14-18) Glucose (83-115) mg/dL Lactic Acid 2.5 H* (0.4-2.0) mmol/L Calcium (8.5-10.1) mg/dL Magnesium (1.8-2.4) mg/dl Ferritin (8-252) ng/ml Total Bilirubin (0.2-1.0) mg/dL AST (15-37) U/L ALT (14-59) U/L Alkaline Phosphatase (46-116) U/L Lactate Dehydrogenase (81-234) U/L Troponin I (0.00-0.056) ng/mL C-Reactive Protein (<1.0) mg/dL NT-Pro-B Natriuret Pep (0-450) pg/mL Total Protein (6.4-8.2) g/dl Albumin (3.4-5.0) g/dl Globulin gm/dL Albumin/Globulin Ratio (1-2) Urine Color (Yellow) Urine Appearance (Clear) Urine pH (5.0-8.0) Ur Specific Docena (1.005-1.030) Urine Protein (Negative) Urine Glucose (UA) (Negative) Urine Ketones (Negative) Urine Occult Blood (Negative) Urine Nitrite (Negative) Urine Bilirubin (Negative) Urine Urobilinogen (0.2-1.0) Ur Leukocyte Esterase (Negative) U Hyaline Cast (Auto) (0-5) /lpf Urine RBC (0-5) /hpf Urine WBC (0-5) /hpf Ur Squamous Epith Cells (0-5) /hpf Amorphous Sediment (NOT SEEN) /hpf Urine Bacteria (FEW) /hpf Urine Mucus (FEW) /hpf Influenza Type A RNA Negative (NEGATIVE) Influenza Type B RNA Negative (NEGATIVE) SARS-CoV-2 RNA (HOLDEN) Positive H (NEGATIVE) Group A Strep (PCR) Not detected (NOT DETECT) 09/30/20 09/30/20 09/30/20 Range/Units 15:30 18:50 19:57 WBC (3.98-10.04) K/mm3 RBC (3.98-5.22) M/mm3 Hgb (11.2-15.7) gm/dl Hct (34.1-44.9) % MCV (79.4-94.8) fl MCH (25.6-32.2) pg MCHC (32.2-35.5) g/dl RDW Std Deviation (36.4-46.3) fL Plt Count (182-369) K/mm3 MPV (9.4-12.3) fl Neutrophils % (Manual) (40-60) % Band Neutrophils % (0-10) % Lymphocytes % (Manual) (20-40) % Atypical Lymphs % % Monocytes % (Manual) (2-10) % Eosinophils % (Manual) (0.7-5.8) % Basophils % (Manual) (0.1-1.2) Toxic Granulation Platelet Estimate Plt Morphology Comment Anisocytosis RBC Morph Comment PT (9.7-12.0) SECONDS INR APTT (21.7-31.4) SECONDS D-Dimer, Quantitative (0.19-0.50) mg/L Puncture Site Lt radial ABG pH 7.48 H (7.35-7.45) ABG pCO2 32.9 L (35.0-45.0) mmHg ABG pO2 56.0 L (80.0-100.0) mmHg ABG HCO3 24.2 (22.0-26.0) meq/L ABG O2 Saturation 86.1 L (96.0-97.0) % ABG Base Excess 1.4 (-2-2.0) Andrés Test Positive A-a Gradient 52 mmHg O2 Delivery Device Room air Oxygen Flow Rate 0.0 FiO2 21.00 (21.00-100.00) % Sodium (136-145) mEq/L Potassium (3.5-5.1) mEq/L Chloride (98-107) mEq/L Carbon Dioxide (21-32) mEq/L Anion Gap (5-15) BUN (7-18) mg/dL Creatinine (0.55-1.02) mg/dL Est Cr Clr Drug Dosing mL/min Estimated GFR (MDRD) (>60) mL/min BUN/Creatinine Ratio (14-18) Glucose (83-115) mg/dL Lactic Acid 2.0 (0.4-2.0) mmol/L Calcium (8.5-10.1) mg/dL Magnesium (1.8-2.4) mg/dl Ferritin (8-252) ng/ml Total Bilirubin (0.2-1.0) mg/dL AST (15-37) U/L ALT (14-59) U/L Alkaline Phosphatase (46-116) U/L Lactate Dehydrogenase (81-234) U/L Troponin I (0.00-0.056) ng/mL C-Reactive Protein (<1.0) mg/dL NT-Pro-B Natriuret Pep (0-450) pg/mL Total Protein (6.4-8.2) g/dl Albumin (3.4-5.0) g/dl Globulin gm/dL Albumin/Globulin Ratio (1-2) Urine Color Dark yellow (Yellow) Urine Appearance Clear (Clear) Urine pH 5.5 (5.0-8.0) Ur Specific Docena 1.020 (1.005-1.030) Urine Protein 1+ H (Negative) Urine Glucose (UA) Negative (Negative) Urine Ketones Negative (Negative) Urine Occult Blood Negative (Negative) Urine Nitrite Negative (Negative) Urine Bilirubin Negative (Negative) Urine Urobilinogen 0.2 (0.2-1.0) Ur Leukocyte Esterase Negative (Negative) U Hyaline Cast (Auto) 5-10 H (0-5) /lpf Urine RBC Not seen (0-5) /hpf Urine WBC 0-5 (0-5) /hpf Ur Squamous Epith Cells 0-5 (0-5) /hpf Amorphous Sediment Few H (NOT SEEN) /hpf Urine Bacteria Rare (FEW) /hpf Urine Mucus Not seen (FEW) /hpf Influenza Type A RNA (NEGATIVE) Influenza Type B RNA (NEGATIVE) SARS-CoV-2 RNA (HOLDEN) (NEGATIVE) Group A Strep (PCR) (NOT DETECT) Result Diagrams: 09/30/20 15:05 09/30/20 15:05 Sepsis Event Note - Evaluation Sepsis Screening Result: Possible Sepsis Risk - Focused Exam Vital Signs: Vital Signs Temp Pulse Resp BP Pulse Ox Pulse Ox 09/30/20 20:30 98 24 H 137/65 93 L 09/30/20 20:15 37.6 C 97 22 H 137/59 L 96 09/30/20 20:10 95 09/30/20 18:29 37.3 C 100 20 110/63 95 09/30/20 17:07 37.0 C 98 20 142/60 H 97 09/30/20 16:26 96 20 134/66 96 09/30/20 14:25 37.3 C 112 H 20 134/65 97 Problem List Initiated/Reviewed/Updated: Yes Orders Last 24hrs: Active Orders 24 hr Category Date Time Status Patient Status [ADT] Routine ADT 09/30/20 21:38 Ordered Bedrest Bedside Commode [RC] ASDIRECTED Care 09/30/20 21:37 Ordered Cardiac Monitoring [RC] CONTINUOUS Care 09/30/20 21:39 Ordered EKG Documentation Completion [RC] STAT Care 09/30/20 14:45 Active Insert Heath Catheter [Insert Urinary Catheter] [OM.PC] Care 09/30/20 15:30 Ordered Stat Intake and Output [RC] QSHIFT Care 09/30/20 21:39 Ordered Oxygen Therapy [RC] ASDIRECTED Care 09/30/20 20:15 Active Oxygen Therapy [RC] PRN Care 09/30/20 21:38 Ordered Peripheral IV Care [RC] . DIRECTED Care 09/30/20 14:46 Active Pulse Oximetry [RC] CONTINUOUS Care 09/30/20 21:39 Ordered RT Aerosol Therapy [RC] ASDIRECTED Care 09/30/20 21:42 Ordered Urinary Catheter Assessment [RC] ASDIRECTED Care 09/30/20 15:30 Active VTE/DVT Education [RC] PER UNIT ROUTINE Care 09/30/20 21:38 Ordered Vital Signs [RC] Q15M Care 09/30/20 16:24 Active Vital Signs [RC] Q4H Care 09/30/20 21:38 Ordered OT Evaluation and Treatment [CONS] Routine Cons 09/30/20 21:43 Ordered PT Evaluation and Treatment [CONS] Routine Cons 09/30/20 21:43 Ordered Consistent Carbohydrate Diet [DIET] Diet 09/30/20 Breakfast Ordered Chest 1V Frontal [CR] Stat Exams 09/30/20 19:48 Taken C-REACTIVE PROTEIN [CHEM] DAILY Lab 10/01/20 05:00 Ordered C-REACTIVE PROTEIN [CHEM] DAILY Lab 10/02/20 05:00 Ordered C-REACTIVE PROTEIN [CHEM] DAILY Lab 10/03/20 05:00 Ordered C-REACTIVE PROTEIN [CHEM] DAILY Lab 10/04/20 05:00 Ordered C-REACTIVE PROTEIN [CHEM] DAILY Lab 10/05/20 05:00 Ordered CBC WITH AUTO DIFF [HEME] DAILY Lab 10/01/20 05:00 Ordered CBC WITH AUTO DIFF [HEME] DAILY Lab 10/02/20 05:00 Ordered CBC WITH AUTO DIFF [HEME] DAILY Lab 10/03/20 05:00 Ordered CBC WITH AUTO DIFF [HEME] DAILY Lab 10/04/20 05:00 Ordered CBC WITH AUTO DIFF [HEME] DAILY Lab 10/05/20 05:00 Ordered COMPREHENSIVE METABOLIC PN,CMP [CHEM] DAILY Lab 10/01/20 05:00 Ordered COMPREHENSIVE METABOLIC PN,CMP [CHEM] DAILY Lab 10/02/20 05:00 Ordered COMPREHENSIVE METABOLIC PN,CMP [CHEM] DAILY Lab 10/03/20 05:00 Ordered COMPREHENSIVE METABOLIC PN,CMP [CHEM] DAILY Lab 10/04/20 05:00 Ordered COMPREHENSIVE METABOLIC PN,CMP [CHEM] DAILY Lab 10/05/20 05:00 Ordered CULTURE BLOOD [BC] Stat Lab 09/30/20 15:05 Received CULTURE BLOOD [BC] Stat Lab 09/30/20 15:15 Received CULTURE MRSA [RM] Stat Lab 09/30/20 21:43 Ordered CULTURE SPUTUM + SMEAR [RM] Stat Lab 09/30/20 21:43 Ordered MAGNESIUM [CHEM] DAILY Lab 10/01/20 05:00 Ordered TROPONIN I [CHEM] Routine Lab 09/30/20 21:43 Ordered VITAMIN D,25-HYDROXY [CHEM] Stat Lab 10/01/20 05:00 Ordered Acetaminophen [Tylenol] Med 09/30/20 21:37 Ordered 650 mg RECTAL Q6H PRN Albuterol/Ipratropium [DuoNeb 3.0-0.5 MG/3 ML] Med 09/30/20 21:37 Ordered 3 ml NEB Q4H PRN Amitriptyline [Elavil] Med 10/01/20 21:00 Ordered 25 mg PO BEDTIME Aspirin [Halfprin] Med 10/01/20 09:00 Ordered 81 mg PO DAILY Brimonidine Tartrate Med 10/01/20 09:00 Ordered 1 drop EYEBOTH BID Docusate Sodium [Colace] Med 09/30/20 21:37 Ordered 100 mg PO BID PRN EPINEPHrine [Adrenalin] Med 09/30/20 16:24 Active 0.3 mg IM ONETIME PRN Famotidine [Pepcid] Med 09/30/20 16:24 Active 20 mg IVPUSH ONETIME PRN Heparin Sodium Med 09/30/20 21:45 Ordered 5,000 units SUBCUT Q8H Insulin Lispro [HumaLOG] Med 09/30/20 22:00 Ordered See Protocol SUBCUT QIDACANDBED Morphine Med 09/30/20 21:37 Ordered 2 mg IVPUSH Q4H PRN Promethazine [Phenergan] 12.5 mg Med 09/30/20 21:37 Ordered Sodium Chloride 0.9% [Normal Saline] 50 ml IV Q6H Sodium Chloride 0.9% [Normal Saline] 1,000 ml Med 09/30/20 21:45 Ordered IV ASDIRECTED Sodium Chloride 0.9% [Saline Flush] Med 09/30/20 14:46 Active 10 ml FLUSH ASDIRECTED PRN Sodium Chloride 0.9% [Saline Flush] Med 09/30/20 16:30 Active 30 ml FLUSH ASDIRECTED diphenhydrAMINE [Benadryl] Med 09/30/20 16:24 Active 50 mg IVPUSH ONETIME PRN hydrALAZINE [Apresoline] Med 09/30/20 21:47 Ordered 10 mg IVPUSH Q4H PRN hydroCHLOROthiazide Med 10/01/20 21:00 Ordered 25 mg PO BEDTIME methylPREDNISolone Sod Succ [Solu-MEDROL] Med 09/30/20 16:24 Active 125 mg IVPUSH ONETIME PRN oxyCODONE Med 09/30/20 21:37 Ordered 5 mg PO Q6H PRN Blood Culture x2 Reflex Set [OM.PC] Stat Oth 09/30/20 14:46 Ordered Peripheral IV Insertion Adult [OM.PC] Routine Oth 09/30/20 14:46 Ordered Medication Orders Acetaminophen (Tylenol) 650 mg RECTAL Q6H PRN PRN Reason: Pain (mild 1-3) Albuterol/Ipratropium (Duoneb 3.0-0.5 Mg/3 Ml) 3 ml NEB Q4H PRN PRN Reason: Shortness Of Breath/wheezing Amitriptyline HCl (Elavil) 25 mg PO BEDTIME ROSEANNA Aspirin (Halfprin) 81 mg PO DAILY ROSEANNA Diphenhydramine HCl (Benadryl) 50 mg IVPUSH ONETIME PRN PRN Reason: hypersensitivity reaction Docusate Sodium (Colace) 100 mg PO BID PRN PRN Reason: Constipation Epinephrine HCl (Adrenalin) 0.3 mg IM ONETIME PRN PRN Reason: hypersensitivity reaction Famotidine (Pepcid) 20 mg IVPUSH ONETIME PRN PRN Reason: hypersensitivity reaction Heparin Sodium (Porcine) (Heparin Sodium) 5,000 units SUBCUT Q8H [facility] Hydralazine HCl (Apresoline) 10 mg IVPUSH Q4H PRN PRN Reason: Hypertension Hydrochlorothiazide (Hydrochlorothiazide) 25 mg PO BEDTIME [facility] Sodium Chloride (Normal Saline) 1,000 mls @ 50 mls/hr IV ASDIRECTED [facility] Promethazine HCl 12.5 mg/ (Sodium Chloride) 50.5 mls @ 100 mls/hr IV Q6H PRN PRN Reason: Nausea/Vomiting Insulin Human Lispro (Humalog) 0 unit SUBCUT QIDACANDBED [facility]; Protocol Methylprednisolone Sodium Succinate (Solu-Medrol) 125 mg IVPUSH ONETIME PRN PRN Reason: hypersensitivity reaction Morphine Sulfate (Morphine) 2 mg IVPUSH Q4H PRN PRN Reason: Pain (severe 7-10) Stop: 10/01/20 21:41 Non-Formulary Medication (Brimonidine Tartrate) 1 drop EYEBOTH BID [facility] Oxycodone HCl (Oxycodone) 5 mg PO Q6H PRN PRN Reason: Pain (moderate 4-6) Sodium Chloride (Saline Flush) 10 ml FLUSH ASDIRECTED PRN PRN Reason: Keep Vein Open Last Admin: 09/30/20 15:05 Dose: 10 ml Documented by: JADIEL Sodium Chloride (Saline Flush) 30 ml FLUSH ASDIRECTED [facility] Last Admin: 09/30/20 18:15 Dose: 30 ml Documented by: JADIEL Assessment/Plan Comment:: Assessment and plan: 1. Acute on chronic hypoxic respiratory failure ABG - PCO2 33, PO2 56, SO2 86.1% pulse ox O2 therapy. Keep SpO2 > 92 2. Early pneumonia or clinical pneumonia, Covid 19? or CAP? 3. Covid 19 was positive CXR - No acute change Blood culture Sputum culture MRSA screen Ferritin 141, CRP 10.3, D-dimer 2.08 Matthew's COVID-19 monoclonal antibody was given I will not start her on antibiotics at this moment I would not like to start her on steroid at the early stage. Lovenox 60mg daily Home aspirin is on hold. Inhalers CRP and D-dimer daily 4. RICK? creatinine 1.2 on 08/12/2020 Avoid nephrotoxic meds Repeat renal function in am IVF 5. HTN Continue HCTZ 25mg daily Lisinopril 20mg daily is on hold Hydralazine prn 6. DM type 2 Metformin 500mg daily is on hold diabetic diet Insulin ss 7. GI and DVT prophylaxis: famotidine and lovenox - Mortality Measure Prognosis:: Good
[2020-09-30] MEDS ORDERED: Heparin Sodium 5,000 Units/ML Vial SUBCUT SCH (22:00)
[2020-09-30] MEDS ORDERED: Enoxaparin 60 MG/0.6 ML Syringe SUBCUT SCH ×2 (22:15→23:45)
[2020-09-30] MEDS ORDERED: Sodium Chloride 0.9% 500 ML IV ONE (22:39)
[2020-09-30] MEDS ORDERED: cefTRIAXone 1 GM in Sodium Chloride 0.9% 100 ML IV SCH (22:45)
[2020-09-30] MEDS ORDERED: Norepinephrine 4 MG in Dextrose 5% in Water 246 ML IV SCH ×2 (23:15)
[2020-10-01] MEDS: Simvastatin 20 MG Tab PO SCH ×2 (00:56→21:11)
[2020-10-01] MEDS: oxyCODONE 5 MG Tab PO PRN ×4 (01:09→22:02)
[2020-10-01 08:08] LABS: VITAMIN D,25-HYDROXY 14.9 ng/ml (30.0-100.0)
[2020-10-01] MEDS: Brimonidine 0.2% Ophth Soln 5 ML Bottle EYEBOTH SCH ×2 (08:42→21:17)
--- NOTE | 2020-10-01 08:52 | CR ---
Chest: Portable view of the of the chest was obtained. Comparison: Prior chest x-ray performed earlier on the same day (3:04 PM). Heart size is normal. Moderately large hiatal hernia is noted. Tortuous thoracic aorta is seen. Questionably increased density within the right midlung from prior study is seen. Lungs otherwise are clear. Bony structures are osteopenic. Impression: 1. Vague area of increased density within the right midlung as an interval change from prior exam. Difficult to exclude minimal area of developing pneumonia. 2. Hiatal hernia is noted. 3. No other acute finding is appreciated. Diagnostic code #3
[2020-10-01] MEDS ORDERED: Aspirin 81 MG Tab.EC PO SCH (09:00)
[2020-10-01] MEDS ORDERED: Potassium Chloride 20 MEQ Tab.ER PO ONE (10:36)
[2020-10-01] MEDS ORDERED: Magnesium Sulfate/Water 4 GM in Premix Bag 1 BAG IV ONE (10:37)
--- NOTE | 2020-10-01 10:40 | PCM.PN ---
- General Info Date of Service: 10/01/20 Admission Dx/Problem (Free Text): Admission Diagnosis/Problem Admission Diagnosis/Problem Respiratory failure with hypoxia Subjective Update: Patient states she is feeling well without any complaints. Functional Status: Reports: Pain Controlled - Review of Systems General: Reports: No Symptoms HEENT: Reports: No Symptoms Pulmonary: Reports: No Symptoms Cardiovascular: Reports: No Symptoms Gastrointestinal: Reports: No Symptoms Musculoskeletal: Reports: No Symptoms Neurological: Reports: No Symptoms Psychiatric: Reports: No Symptoms - Patient Data Vitals - Most Recent: Last Vital Signs Temp 98.1 F 10/01/20 08:00 Pulse 80 10/01/20 07:15 Resp 15 10/01/20 10:00 BP 108/55 L 10/01/20 10:00 Pulse Ox 97 10/01/20 10:00 Weight - Most Recent: 147 lb I&O - Last 24 Hours: Intake & Output 09/30/20 10/01/20 10/01/20 22:59 06:59 14:59 Intake Total 3154 Output Total 1415 450 Balance 1739 -450 Lab Results Last 24 Hours: Laboratory Results - last 24 hr 09/30/20 09/30/20 09/30/20 Range/Units 15:05 15:05 15:05 WBC 5.77 (3.98-10.04) K/mm3 RBC 4.12 (3.98-5.22) M/mm3 Hgb 11.4 (11.2-15.7) gm/dl Hct 36.3 (34.1-44.9) % MCV 88.1 (79.4-94.8) fl MCH 27.7 (25.6-32.2) pg MCHC 31.4 L (32.2-35.5) g/dl RDW Std Deviation 48.8 H (36.4-46.3) fL Plt Count 317 (182-369) K/mm3 MPV 10.0 (9.4-12.3) fl Neut % (Auto) (34.0-71.1) % Lymph % (Auto) (19.3-51.7) % [place] % (Auto) (4.7-12.5) % Eos % (Auto) (0.7-5.8) Baso % (Auto) (0.1-1.2) % Neut # (Auto) (1.56-6.13) K/mm3 Lymph # (Auto) (1.18-3.74) K/mm3 [place] # (Auto) (0.24-0.36) K/mm3 Eos # (Auto) (0.04-0.36) K/mm3 Baso # (Auto) (0.01-0.08) K/mm3 Neutrophils % (Manual) 75 H (40-60) % Band Neutrophils % 7 (0-10) % Lymphocytes % (Manual) 15 L (20-40) % Atypical Lymphs % 0 % Monocytes % (Manual) 3 (2-10) % Eosinophils % (Manual) 0 L (0.7-5.8) % Basophils % (Manual) 0 L (0.1-1.2) Manual Slide Review Toxic Granulation 2+ moderate Platelet Estimate Adequate Plt Morphology Comment Normal Anisocytosis 1+ slight RBC Morph Comment Not Reportable PT 10.5 (9.7-12.0) SECONDS INR 0.98 APTT 32.5 H (21.7-31.4) SECONDS D-Dimer, Quantitative 2.08 H (0.19-0.50) mg/L Puncture Site ABG pH (7.35-7.45) ABG pCO2 (35.0-45.0) mmHg ABG pO2 (80.0-100.0) mmHg ABG HCO3 (22.0-26.0) meq/L ABG O2 Saturation (96.0-97.0) % ABG Base Excess (-2-2.0) Andrés Test A-a Gradient mmHg O2 Delivery Device Oxygen Flow Rate FiO2 (21.00-100.00) % Sodium (136-145) mEq/L Potassium (3.5-5.1) mEq/L Chloride (98-107) mEq/L Carbon Dioxide (21-32) mEq/L Anion Gap (5-15) BUN (7-18) mg/dL Creatinine (0.55-1.02) mg/dL Est Cr Clr Drug Dosing mL/min Estimated GFR (MDRD) (>60) mL/min BUN/Creatinine Ratio (14-18) Glucose (83-115) mg/dL POC Glucose (83-110) mg/dL Lactic Acid (0.4-2.0) mmol/L Calcium (8.5-10.1) mg/dL Magnesium (1.8-2.4) mg/dl Ferritin (8-252) ng/ml Total Bilirubin (0.2-1.0) mg/dL AST (15-37) U/L ALT (14-59) U/L Alkaline Phosphatase (46-116) U/L Lactate Dehydrogenase (81-234) U/L Troponin I (0.00-0.056) ng/mL C-Reactive Protein 10.3 H* (<1.0) mg/dL NT-Pro-B Natriuret Pep (0-450) pg/mL Total Protein (6.4-8.2) g/dl Albumin (3.4-5.0) g/dl Globulin gm/dL Albumin/Globulin Ratio (1-2) Vitamin D 25-Hydroxy (30.0-100.0) ng/ml Urine Color (Yellow) Urine Appearance (Clear) Urine pH (5.0-8.0) Ur Specific [place] (1.005-1.030) Urine Protein (Negative) Urine Glucose (UA) (Negative) Urine Ketones (Negative) Urine Occult Blood (Negative) Urine Nitrite (Negative) Urine Bilirubin (Negative) Urine Urobilinogen (0.2-1.0) Ur Leukocyte Esterase (Negative) U Hyaline Cast (Auto) (0-5) /lpf Urine RBC (0-5) /hpf Urine WBC (0-5) /hpf Ur Squamous Epith Cells (0-5) /hpf Amorphous Sediment (NOT SEEN) /hpf Urine Bacteria (FEW) /hpf Urine Mucus (FEW) /hpf Influenza Type A RNA (NEGATIVE) Influenza Type B RNA (NEGATIVE) SARS-CoV-2 RNA (HOLDEN) (NEGATIVE) MRSA (PCR) Group A Strep (PCR) (NOT DETECT) 09/30/20 09/30/20 09/30/20 Range/Units 15:05 15:05 15:05 WBC (3.98-10.04) K/mm3 RBC (3.98-5.22) M/mm3 Hgb (11.2-15.7) gm/dl Hct (34.1-44.9) % MCV (79.4-94.8) fl MCH (25.6-32.2) pg MCHC (32.2-35.5) g/dl RDW Std Deviation (36.4-46.3) fL Plt Count (182-369) K/mm3 MPV (9.4-12.3) fl Neut % (Auto) (34.0-71.1) % Lymph % (Auto) (19.3-51.7) % [place] % (Auto) (4.7-12.5) % Eos % (Auto) (0.7-5.8) Baso % (Auto) (0.1-1.2) % Neut # (Auto) (1.56-6.13) K/mm3 Lymph # (Auto) (1.18-3.74) K/mm3 [place] # (Auto) (0.24-0.36) K/mm3 Eos # (Auto) (0.04-0.36) K/mm3 Baso # (Auto) (0.01-0.08) K/mm3 Neutrophils % (Manual) (40-60) % Band Neutrophils % (0-10) % Lymphocytes % (Manual) (20-40) % Atypical Lymphs % % Monocytes % (Manual) (2-10) % Eosinophils % (Manual) (0.7-5.8) % Basophils % (Manual) (0.1-1.2) Manual Slide Review Toxic Granulation Platelet Estimate Plt Morphology Comment Anisocytosis RBC Morph Comment PT (9.7-12.0) SECONDS INR APTT (21.7-31.4) SECONDS D-Dimer, Quantitative (0.19-0.50) mg/L Puncture Site ABG pH (7.35-7.45) ABG pCO2 (35.0-45.0) mmHg ABG pO2 (80.0-100.0) mmHg ABG HCO3 (22.0-26.0) meq/L ABG O2 Saturation (96.0-97.0) % ABG Base Excess (-2-2.0) Andrés Test A-a Gradient mmHg O2 Delivery Device Oxygen Flow Rate FiO2 (21.00-100.00) % Sodium 136 (136-145) mEq/L Potassium 3.7 (3.5-5.1) mEq/L Chloride 95 L (98-107) mEq/L Carbon Dioxide 30 (21-32) mEq/L Anion Gap 14.7 (5-15) BUN 21 H (7-18) mg/dL Creatinine 1.3 H (0.55-1.02) mg/dL Est Cr Clr Drug Dosing 28.99 mL/min Estimated GFR (MDRD) 39 (>60) mL/min BUN/Creatinine Ratio 16.2 (14-18) Glucose 126 H (83-115) mg/dL POC Glucose (83-110) mg/dL Lactic Acid (0.4-2.0) mmol/L Calcium 8.6 (8.5-10.1) mg/dL Magnesium 1.2 L (1.8-2.4) mg/dl Ferritin 141 (8-252) ng/ml Total Bilirubin 0.4 (0.2-1.0) mg/dL AST 25 (15-37) U/L ALT 28 (14-59) U/L Alkaline Phosphatase 81 (46-116) U/L Lactate Dehydrogenase 218 (81-234) U/L Troponin I < 0.017 (0.00-0.056) ng/mL C-Reactive Protein (<1.0) mg/dL NT-Pro-B Natriuret Pep 474 H (0-450) pg/mL Total Protein 7.4 (6.4-8.2) g/dl Albumin 2.7 L (3.4-5.0) g/dl Globulin 4.7 gm/dL Albumin/Globulin Ratio 0.6 L (1-2) Vitamin D 25-Hydroxy (30.0-100.0) ng/ml Urine Color (Yellow) Urine Appearance (Clear) Urine pH (5.0-8.0) Ur Specific [place] (1.005-1.030) Urine Protein (Negative) Urine Glucose (UA) (Negative) Urine Ketones (Negative) Urine Occult Blood (Negative) Urine Nitrite (Negative) Urine Bilirubin (Negative) Urine Urobilinogen (0.2-1.0) Ur Leukocyte Esterase (Negative) U Hyaline Cast (Auto) (0-5) /lpf Urine RBC (0-5) /hpf Urine WBC (0-5) /hpf Ur Squamous Epith Cells (0-5) /hpf Amorphous Sediment (NOT SEEN) /hpf Urine Bacteria (FEW) /hpf Urine Mucus (FEW) /hpf Influenza Type A RNA (NEGATIVE) Influenza Type B RNA (NEGATIVE) SARS-CoV-2 RNA (HOLDEN) (NEGATIVE) MRSA (PCR) Group A Strep (PCR) (NOT DETECT) 09/30/20 09/30/20 09/30/20 Range/Units 15:05 15:10 15:10 WBC (3.98-10.04) K/mm3 RBC (3.98-5.22) M/mm3 Hgb (11.2-15.7) gm/dl Hct (34.1-44.9) % MCV (79.4-94.8) fl MCH (25.6-32.2) pg MCHC (32.2-35.5) g/dl RDW Std Deviation (36.4-46.3) fL Plt Count (182-369) K/mm3 MPV (9.4-12.3) fl Neut % (Auto) (34.0-71.1) % Lymph % (Auto) (19.3-51.7) % [place] % (Auto) (4.7-12.5) % Eos % (Auto) (0.7-5.8) Baso % (Auto) (0.1-1.2) % Neut # (Auto) (1.56-6.13) K/mm3 Lymph # (Auto) (1.18-3.74) K/mm3 [place] # (Auto) (0.24-0.36) K/mm3 Eos # (Auto) (0.04-0.36) K/mm3 Baso # (Auto) (0.01-0.08) K/mm3 Neutrophils % (Manual) (40-60) % Band Neutrophils % (0-10) % Lymphocytes % (Manual) (20-40) % Atypical Lymphs % % Monocytes % (Manual) (2-10) % Eosinophils % (Manual) (0.7-5.8) % Basophils % (Manual) (0.1-1.2) Manual Slide Review Toxic Granulation Platelet Estimate Plt Morphology Comment Anisocytosis RBC Morph Comment PT (9.7-12.0) SECONDS INR APTT (21.7-31.4) SECONDS D-Dimer, Quantitative (0.19-0.50) mg/L Puncture Site ABG pH (7.35-7.45) ABG pCO2 (35.0-45.0) mmHg ABG pO2 (80.0-100.0) mmHg ABG HCO3 (22.0-26.0) meq/L ABG O2 Saturation (96.0-97.0) % ABG Base Excess (-2-2.0) Andrés Test A-a Gradient mmHg O2 Delivery Device Oxygen Flow Rate FiO2 (21.00-100.00) % Sodium (136-145) mEq/L Potassium (3.5-5.1) mEq/L Chloride (98-107) mEq/L Carbon Dioxide (21-32) mEq/L Anion Gap (5-15) BUN (7-18) mg/dL Creatinine (0.55-1.02) mg/dL Est Cr Clr Drug Dosing mL/min Estimated GFR (MDRD) (>60) mL/min BUN/Creatinine Ratio (14-18) Glucose (83-115) mg/dL POC Glucose (83-110) mg/dL Lactic Acid 2.5 H* (0.4-2.0) mmol/L Calcium (8.5-10.1) mg/dL Magnesium (1.8-2.4) mg/dl Ferritin (8-252) ng/ml Total Bilirubin (0.2-1.0) mg/dL AST (15-37) U/L ALT (14-59) U/L Alkaline Phosphatase (46-116) U/L Lactate Dehydrogenase (81-234) U/L Troponin I (0.00-0.056) ng/mL C-Reactive Protein (<1.0) mg/dL NT-Pro-B Natriuret Pep (0-450) pg/mL Total Protein (6.4-8.2) g/dl Albumin (3.4-5.0) g/dl Globulin gm/dL Albumin/Globulin Ratio (1-2) Vitamin D 25-Hydroxy (30.0-100.0) ng/ml Urine Color (Yellow) Urine Appearance (Clear) Urine pH (5.0-8.0) Ur Specific [place] (1.005-1.030) Urine Protein (Negative) Urine Glucose (UA) (Negative) Urine Ketones (Negative) Urine Occult Blood (Negative) Urine Nitrite (Negative) Urine Bilirubin (Negative) Urine Urobilinogen (0.2-1.0) Ur Leukocyte Esterase (Negative) U Hyaline Cast (Auto) (0-5) /lpf Urine RBC (0-5) /hpf Urine WBC (0-5) /hpf Ur Squamous Epith Cells (0-5) /hpf Amorphous Sediment (NOT SEEN) /hpf Urine Bacteria (FEW) /hpf Urine Mucus (FEW) /hpf Influenza Type A RNA Negative (NEGATIVE) Influenza Type B RNA Negative (NEGATIVE) SARS-CoV-2 RNA (HOLDEN) Positive H (NEGATIVE) MRSA (PCR) Group A Strep (PCR) Not detected (NOT DETECT) 09/30/20 09/30/20 09/30/20 Range/Units 15:30 18:50 19:57 WBC (3.98-10.04) K/mm3 RBC (3.98-5.22) M/mm3 Hgb (11.2-15.7) gm/dl Hct (34.1-44.9) % MCV (79.4-94.8) fl MCH (25.6-32.2) pg MCHC (32.2-35.5) g/dl RDW Std Deviation (36.4-46.3) fL Plt Count (182-369) K/mm3 MPV (9.4-12.3) fl Neut % (Auto) (34.0-71.1) % Lymph % (Auto) (19.3-51.7) % [place] % (Auto) (4.7-12.5) % Eos % (Auto) (0.7-5.8) Baso % (Auto) (0.1-1.2) % Neut # (Auto) (1.56-6.13) K/mm3 Lymph # (Auto) (1.18-3.74) K/mm3 [place] # (Auto) (0.24-0.36) K/mm3 Eos # (Auto) (0.04-0.36) K/mm3 Baso # (Auto) (0.01-0.08) K/mm3 Neutrophils % (Manual) (40-60) % Band Neutrophils % (0-10) % Lymphocytes % (Manual) (20-40) % Atypical Lymphs % % Monocytes % (Manual) (2-10) % Eosinophils % (Manual) (0.7-5.8) % Basophils % (Manual) (0.1-1.2) Manual Slide Review Toxic Granulation Platelet Estimate Plt Morphology Comment Anisocytosis RBC Morph Comment PT (9.7-12.0) SECONDS INR APTT (21.7-31.4) SECONDS D-Dimer, Quantitative (0.19-0.50) mg/L Puncture Site Lt radial ABG pH 7.48 H (7.35-7.45) ABG pCO2 32.9 L (35.0-45.0) mmHg ABG pO2 56.0 L (80.0-100.0) mmHg ABG HCO3 24.2 (22.0-26.0) meq/L ABG O2 Saturation 86.1 L (96.0-97.0) % ABG Base Excess 1.4 (-2-2.0) Andrés Test Positive A-a Gradient 52 mmHg O2 Delivery Device Room air Oxygen Flow Rate 0.0 FiO2 21.00 (21.00-100.00) % Sodium (136-145) mEq/L Potassium (3.5-5.1) mEq/L Chloride (98-107) mEq/L Carbon Dioxide (21-32) mEq/L Anion Gap (5-15) BUN (7-18) mg/dL Creatinine (0.55-1.02) mg/dL Est Cr Clr Drug Dosing mL/min Estimated GFR (MDRD) (>60) mL/min BUN/Creatinine Ratio (14-18) Glucose (83-115) mg/dL POC Glucose (83-110) mg/dL Lactic Acid 2.0 (0.4-2.0) mmol/L Calcium (8.5-10.1) mg/dL Magnesium (1.8-2.4) mg/dl Ferritin (8-252) ng/ml Total Bilirubin (0.2-1.0) mg/dL AST (15-37) U/L ALT (14-59) U/L Alkaline Phosphatase (46-116) U/L Lactate Dehydrogenase (81-234) U/L Troponin I (0.00-0.056) ng/mL C-Reactive Protein (<1.0) mg/dL NT-Pro-B Natriuret Pep (0-450) pg/mL Total Protein (6.4-8.2) g/dl Albumin (3.4-5.0) g/dl Globulin gm/dL Albumin/Globulin Ratio (1-2) Vitamin D 25-Hydroxy (30.0-100.0) ng/ml Urine Color Dark yellow (Yellow) Urine Appearance Clear (Clear) Urine pH 5.5 (5.0-8.0) Ur Specific [place] 1.020 (1.005-1.030) Urine Protein 1+ H (Negative) Urine Glucose (UA) Negative (Negative) Urine Ketones Negative (Negative) Urine Occult Blood Negative (Negative) Urine Nitrite Negative (Negative) Urine Bilirubin Negative (Negative) Urine Urobilinogen 0.2 (0.2-1.0) Ur Leukocyte Esterase Negative (Negative) U Hyaline Cast (Auto) 5-10 H (0-5) /lpf Urine RBC Not seen (0-5) /hpf Urine WBC 0-5 (0-5) /hpf Ur Squamous Epith Cells 0-5 (0-5) /hpf Amorphous Sediment Few H (NOT SEEN) /hpf Urine Bacteria Rare (FEW) /hpf Urine Mucus Not seen (FEW) /hpf Influenza Type A RNA (NEGATIVE) Influenza Type B RNA (NEGATIVE) SARS-CoV-2 RNA (HOLDEN) (NEGATIVE) MRSA (PCR) Group A Strep (PCR) (NOT DETECT) 09/30/20 09/30/20 10/01/20 Range/Units 22:17 22:51 01:37 WBC (3.98-10.04) K/mm3 RBC (3.98-5.22) M/mm3 Hgb (11.2-15.7) gm/dl Hct (34.1-44.9) % MCV (79.4-94.8) fl MCH (25.6-32.2) pg MCHC (32.2-35.5) g/dl RDW Std Deviation (36.4-46.3) fL Plt Count (182-369) K/mm3 MPV (9.4-12.3) fl Neut % (Auto) (34.0-71.1) % Lymph % (Auto) (19.3-51.7) % [place] % (Auto) (4.7-12.5) % Eos % (Auto) (0.7-5.8) Baso % (Auto) (0.1-1.2) % Neut # (Auto) (1.56-6.13) K/mm3 Lymph # (Auto) (1.18-3.74) K/mm3 [place] # (Auto) (0.24-0.36) K/mm3 Eos # (Auto) (0.04-0.36) K/mm3 Baso # (Auto) (0.01-0.08) K/mm3 Neutrophils % (Manual) (40-60) % Band Neutrophils % (0-10) % Lymphocytes % (Manual) (20-40) % Atypical Lymphs % % Monocytes % (Manual) (2-10) % Eosinophils % (Manual) (0.7-5.8) % Basophils % (Manual) (0.1-1.2) Manual Slide Review Toxic Granulation Platelet Estimate Plt Morphology Comment Anisocytosis RBC Morph Comment PT (9.7-12.0) SECONDS INR APTT (21.7-31.4) SECONDS D-Dimer, Quantitative (0.19-0.50) mg/L Puncture Site ABG pH (7.35-7.45) ABG pCO2 (35.0-45.0) mmHg ABG pO2 (80.0-100.0) mmHg ABG HCO3 (22.0-26.0) meq/L ABG O2 Saturation (96.0-97.0) % ABG Base Excess (-2-2.0) Andrés Test A-a Gradient mmHg O2 Delivery Device Oxygen Flow Rate FiO2 (21.00-100.00) % Sodium (136-145) mEq/L Potassium (3.5-5.1) mEq/L Chloride (98-107) mEq/L Carbon Dioxide (21-32) mEq/L Anion Gap (5-15) BUN (7-18) mg/dL Creatinine (0.55-1.02) mg/dL Est Cr Clr Drug Dosing mL/min Estimated GFR (MDRD) (>60) mL/min BUN/Creatinine Ratio (14-18) Glucose (83-115) mg/dL POC Glucose 136 H (83-110) mg/dL Lactic Acid (0.4-2.0) mmol/L Calcium (8.5-10.1) mg/dL Magnesium (1.8-2.4) mg/dl Ferritin (8-252) ng/ml Total Bilirubin (0.2-1.0) mg/dL AST (15-37) U/L ALT (14-59) U/L Alkaline Phosphatase (46-116) U/L Lactate Dehydrogenase (81-234) U/L Troponin I 0.078 H* (0.00-0.056) ng/mL C-Reactive Protein (<1.0) mg/dL NT-Pro-B Natriuret Pep (0-450) pg/mL Total Protein (6.4-8.2) g/dl Albumin (3.4-5.0) g/dl Globulin gm/dL Albumin/Globulin Ratio (1-2) Vitamin D 25-Hydroxy (30.0-100.0) ng/ml Urine Color (Yellow) Urine Appearance (Clear) Urine pH (5.0-8.0) Ur Specific [place] (1.005-1.030) Urine Protein (Negative) Urine Glucose (UA) (Negative) Urine Ketones (Negative) Urine Occult Blood (Negative) Urine Nitrite (Negative) Urine Bilirubin (Negative) Urine Urobilinogen (0.2-1.0) Ur Leukocyte Esterase (Negative) U Hyaline Cast (Auto) (0-5) /lpf Urine RBC (0-5) /hpf Urine WBC (0-5) /hpf Ur Squamous Epith Cells (0-5) /hpf Amorphous Sediment (NOT SEEN) /hpf Urine Bacteria (FEW) /hpf Urine Mucus (FEW) /hpf Influenza Type A RNA (NEGATIVE) Influenza Type B RNA (NEGATIVE) SARS-CoV-2 RNA (HOLDEN) (NEGATIVE) MRSA (PCR) Negative Group A Strep (PCR) (NOT DETECT) 10/01/20 10/01/20 10/01/20 Range/Units 06:57 07:05 07:05 WBC 13.72 H (3.98-10.04) K/mm3 RBC 4.13 (3.98-5.22) M/mm3 Hgb 11.3 (11.2-15.7) gm/dl Hct 35.6 (34.1-44.9) % MCV 86.2 (79.4-94.8) fl MCH 27.4 (25.6-32.2) pg MCHC 31.7 L (32.2-35.5) g/dl RDW Std Deviation 47.7 H (36.4-46.3) fL Plt Count 283 (182-369) K/mm3 MPV 9.8 (9.4-12.3) fl Neut % (Auto) 86.5 H (34.0-71.1) % Lymph % (Auto) 10.9 L (19.3-51.7) % [place] % (Auto) 2.3 L (4.7-12.5) % Eos % (Auto) 0 L (0.7-5.8) Baso % (Auto) 0.1 (0.1-1.2) % Neut # (Auto) 11.87 H (1.56-6.13) K/mm3 Lymph # (Auto) 1.49 (1.18-3.74) K/mm3 [place] # (Auto) 0.32 (0.24-0.36) K/mm3 Eos # (Auto) 0.00 L (0.04-0.36) K/mm3 Baso # (Auto) 0.01 (0.01-0.08) K/mm3 Neutrophils % (Manual) (40-60) % Band Neutrophils % (0-10) % Lymphocytes % (Manual) (20-40) % Atypical Lymphs % % Monocytes % (Manual) (2-10) % Eosinophils % (Manual) (0.7-5.8) % Basophils % (Manual) (0.1-1.2) Manual Slide Review Normal smear Toxic Granulation Platelet Estimate Plt Morphology Comment Anisocytosis RBC Morph Comment PT (9.7-12.0) SECONDS INR APTT (21.7-31.4) SECONDS D-Dimer, Quantitative (0.19-0.50) mg/L Puncture Site ABG pH (7.35-7.45) ABG pCO2 (35.0-45.0) mmHg ABG pO2 (80.0-100.0) mmHg ABG HCO3 (22.0-26.0) meq/L ABG O2 Saturation (96.0-97.0) % ABG Base Excess (-2-2.0) Andrés Test A-a Gradient mmHg O2 Delivery Device Oxygen Flow Rate FiO2 (21.00-100.00) % Sodium 137 (136-145) mEq/L Potassium 3.3 L (3.5-5.1) mEq/L Chloride 99 (98-107) mEq/L Carbon Dioxide 28 (21-32) mEq/L Anion Gap 13.3 (5-15) BUN 18 (7-18) mg/dL Creatinine 1.0 (0.55-1.02) mg/dL Est Cr Clr Drug Dosing 37.68 mL/min Estimated GFR (MDRD) 53 (>60) mL/min BUN/Creatinine Ratio 18.0 (14-18) Glucose 109 (83-115) mg/dL POC Glucose 131 H (83-110) mg/dL Lactic Acid (0.4-2.0) mmol/L Calcium 7.8 L (8.5-10.1) mg/dL Magnesium 1.6 L (1.8-2.4) mg/dl Ferritin (8-252) ng/ml Total Bilirubin 0.3 (0.2-1.0) mg/dL AST 38 H (15-37) U/L ALT 25 (14-59) U/L Alkaline Phosphatase 91 (46-116) U/L Lactate Dehydrogenase (81-234) U/L Troponin I 0.137 H* (0.00-0.056) ng/mL C-Reactive Protein 14.8 H* (<1.0) mg/dL NT-Pro-B Natriuret Pep (0-450) pg/mL Total Protein 6.5 (6.4-8.2) g/dl Albumin 2.1 L (3.4-5.0) g/dl Globulin 4.4 gm/dL Albumin/Globulin Ratio 0.5 L (1-2) Vitamin D 25-Hydroxy 14.9 L (30.0-100.0) ng/ml Urine Color (Yellow) Urine Appearance (Clear) Urine pH (5.0-8.0) Ur Specific [place] (1.005-1.030) Urine Protein (Negative) Urine Glucose (UA) (Negative) Urine Ketones (Negative) Urine Occult Blood (Negative) Urine Nitrite (Negative) Urine Bilirubin (Negative) Urine Urobilinogen (0.2-1.0) Ur Leukocyte Esterase (Negative) U Hyaline Cast (Auto) (0-5) /lpf Urine RBC (0-5) /hpf Urine WBC (0-5) /hpf Ur Squamous Epith Cells (0-5) /hpf Amorphous Sediment (NOT SEEN) /hpf Urine Bacteria (FEW) /hpf Urine Mucus (FEW) /hpf Influenza Type A RNA (NEGATIVE) Influenza Type B RNA (NEGATIVE) SARS-CoV-2 RNA (HOLDEN) (NEGATIVE) MRSA (PCR) Group A Strep (PCR) (NOT DETECT) Med Orders - Current: Current Medications Acetaminophen (Tylenol) 650 mg RECTAL Q6H PRN PRN Reason: Pain (mild 1-3) Albuterol/Ipratropium (Duoneb 3.0-0.5 Mg/3 Ml) 3 ml NEB Q4H PRN PRN Reason: Shortness Of Breath/wheezing Amitriptyline HCl (Elavil) 25 mg PO BEDTIME COUNT INCLUDES THE [facility] Brimonidine Tartrate (Alphagan 0.2% Ophth Soln) 0 ml EYEBOTH BID COUNT INCLUDES THE [facility] Last Admin: 10/01/20 08:42 Dose: 1 drop Documented by: Cholecalciferol (Vitamin D3) 10,000 unit PO DAILY COUNT INCLUDES THE [facility] Diphenhydramine HCl (Benadryl) 50 mg IVPUSH ONETIME PRN PRN Reason: hypersensitivity reaction Docusate Sodium (Colace) 100 mg PO BID PRN PRN Reason: Constipation Enoxaparin Sodium (Lovenox) 60 mg SUBCUT BEDTIME [place] Epinephrine HCl (Adrenalin) 0.3 mg IM ONETIME PRN PRN Reason: hypersensitivity reaction Hydralazine HCl (Apresoline) 10 mg IVPUSH Q4H PRN PRN Reason: Hypertension Hydrochlorothiazide (Hydrochlorothiazide) 25 mg PO BEDTIME COUNT INCLUDES THE [facility] Sodium Chloride (Normal Saline) 1,000 mls @ 50 mls/hr IV ASDIRECTED COUNT INCLUDES THE [facility] Last Admin: 10/01/20 01:20 Dose: 50 mls/hr Documented by: Promethazine HCl 12.5 mg/ (Sodium Chloride) 50.5 mls @ 100 mls/hr IV Q6H PRN PRN Reason: Nausea/Vomiting Ceftriaxone Sodium 1 gm/ (Sodium Chloride) 100 mls @ 200 mls/hr IV Q24H COUNT INCLUDES THE [facility] Last Admin: 09/30/20 22:55 Dose: 200 mls/hr Documented by: Norepinephrine Bitartrate 4 mg (/ Dextrose/Water) 250 mls @ 7.5 mls/hr IV TITRATE COUNT INCLUDES THE [facility]; Protocol Last Titration: 10/01/20 08:43 Dose: 0 mcg/min, 0 mls/hr Documented by: Magnesium Sulfate 4 gm/ Premix 50 mls @ 12.5 mls/hr IV ONETIME ONE Stop: 10/01/20 14:36 Insulin Human Lispro (Humalog) 0 unit SUBCUT QIDACANDBED COUNT INCLUDES THE [facility]; Protocol Last Admin: 10/01/20 07:01 Dose: Not Given Documented by: Methylprednisolone Sodium Succinate (Solu-Medrol) 125 mg IVPUSH ONETIME PRN PRN Reason: hypersensitivity reaction Morphine Sulfate (Morphine) 2 mg IVPUSH Q4H PRN PRN Reason: Pain (severe 7-10) Stop: 10/01/20 21:41 Last Admin: 09/30/20 22:21 Dose: 2 mg Documented by: Oxycodone HCl (Oxycodone) 5 mg PO Q6H PRN PRN Reason: Pain (moderate 4-6) Last Admin: 10/01/20 08:42 Dose: 5 mg Documented by: Potassium Chloride (Klor-Con M20) 40 meq PO ONETIME ONE Stop: 10/01/20 10:37 Simvastatin (Zocor) 20 mg PO BEDTIME COUNT INCLUDES THE [facility] Last Admin: 10/01/20 00:56 Dose: 20 mg Documented by: Sodium Chloride (Saline Flush) 10 ml FLUSH ASDIRECTED PRN PRN Reason: Keep Vein Open Last Admin: 09/30/20 15:05 Dose: 10 ml Documented by: Sodium Chloride (Saline Flush) 30 ml FLUSH ASDIRECTED COUNT INCLUDES THE [facility] Last Admin: 09/30/20 18:15 Dose: 30 ml Documented by: Discontinued Medications Acetaminophen (Tylenol) 650 mg PO NOW ONE Stop: 09/30/20 20:24 Last Admin: 09/30/20 20:33 Dose: 650 mg Documented by: Aspirin (Halfprin) 81 mg PO DAILY COUNT INCLUDES THE [facility] Enoxaparin Sodium (Lovenox) 60 mg SUBCUT DAILY COUNT INCLUDES THE [facility] Last Admin: 10/01/20 03:48 Dose: Not Given Documented by: Enoxaparin Sodium (Lovenox) 60 mg SUBCUT DAILY COUNT INCLUDES THE [facility] Last Admin: 10/01/20 00:58 Dose: 60 mg Documented by: Famotidine (Pepcid) 20 mg IVPUSH ONETIME PRN PRN Reason: hypersensitivity reaction Last Admin: 10/01/20 01:09 Dose: 20 mg Documented by: Heparin Sodium (Porcine) (Heparin Sodium) 5,000 units SUBCUT Q8H COUNT INCLUDES THE [facility] Last Admin: 10/01/20 03:48 Dose: Not Given Documented by: Magnesium Sulfate 2 gm/ Premix 50 mls @ 25 mls/hr IV Q1H COUNT INCLUDES THE [facility] Stop: 09/30/20 18:29 Last Admin: 09/30/20 20:43 Dose: Not Given Documented by: Non-Formulary Medication 1,200 mg/ Non-Formulary Medication 1,200 mg/ Sodium Chloride 250 mls @ 250 mls/hr IV ONETIME ONE Stop: 09/30/20 17:23 Last Admin: 09/30/20 17:06 Dose: 250 mls/hr Documented by: Sodium Chloride (Normal Saline) 1,000 mls @ 500 mls/hr IV ONETIME ONE Stop: 09/30/20 18:24 Last Admin: 09/30/20 16:41 Dose: 500 mls/hr Documented by: Sodium Chloride (Normal Saline) 1,000 mls @ 500 mls/hr IV ONETIME ONE Stop: 09/30/20 18:31 Last Admin: 09/30/20 18:20 Dose: 500 mls/hr Documented by: Sodium Chloride (Normal Saline) 500 mls @ 999 mls/hr IV .BOLUS ONE Stop: 09/30/20 23:09 Last Admin: 09/30/20 22:47 Dose: 999 mls/hr Documented by: Magnesium Oxide (Magnesium Oxide) 800 mg PO ONETIME ONE Stop: 09/30/20 16:46 Last Admin: 09/30/20 17:18 Dose: 800 mg Documented by: Ondansetron HCl (Zofran) 4 mg IVPUSH ONETIME ONE Stop: 09/30/20 19:55 Last Admin: 09/30/20 20:09 Dose: 4 mg Documented by: Tramadol HCl (Ultram) 100 mg PO ONETIME ONE Stop: 09/30/20 20:03 Last Admin: 09/30/20 20:43 Dose: Not Given Documented by: - Exam Quality Assessment: Supplemental Oxygen (1 L nasal cannula) General: Alert, Oriented HEENT: Pupils Equal, Mucous Membr. Moist/[place] Neck: Supple Lungs: Normal Respiratory Effort, Rales (Bibasilar) Cardiovascular: Regular Rate, Regular Rhythm GI/Abdominal Exam: Normal Bowel Sounds, Soft, Non-Tender, No Organomegaly, No Distention, No Abnormal Bruit, No Mass Extremities: Normal Inspection, Normal Range of Motion, Non-Tender, No Pedal Edema, Normal Capillary Refill Peripheral Pulses: 1+: Posterior Tibial (L), Posterior Tibial (R), Dorsalis Pedis (L), Dorsalis Pedis (R) Skin: Warm, Dry, Intact Psy/Mental Status: Alert, Normal Affect, Normal Mood Sepsis Event Note - Evaluation Sepsis Screening Result: No Definite Risk - Focused Exam Vital Signs: Vital Signs Temp Pulse Pulse Resp BP BP BP 10/01/20 10:00 15 108/55 L 10/01/20 09:00 20 110/59 L 10/01/20 08:54 10/01/20 08:00 98.1 F 17 106/67 10/01/20 07:15 80 19 135/64 10/01/20 07:00 20 133/66 10/01/20 06:45 86 23 H 118/70 10/01/20 06:31 81 20 105/61 10/01/20 06:15 78 23 H 117/61 10/01/20 06:00 19 115/69 10/01/20 05:46 90 22 H 127/59 L 10/01/20 05:31 77 20 128/70 10/01/20 05:26 10/01/20 05:16 78 19 121/61 10/01/20 05:00 17 121/61 10/01/20 04:45 79 20 112/45 L 10/01/20 04:30 79 20 125/61 10/01/20 04:15 74 19 116/59 L 10/01/20 04:00 97.8 F 20 106/59 L 10/01/20 03:45 72 20 105/53 L 10/01/20 03:30 73 19 103/53 L 10/01/20 03:15 80 21 H 105/53 L 10/01/20 03:00 98.5 F 20 116/57 L 10/01/20 02:45 107/56 L 10/01/20 02:30 85 18 105/54 L 10/01/20 02:15 80 19 113/53 L 10/01/20 02:12 10/01/20 02:08 10/01/20 02:00 81 23 H 116/57 L 10/01/20 01:58 83 21 H 10/01/20 00:50 98.8 F 18 122/56 L 10/01/20 00:20 98.6 F 84 19 113/46 L 09/30/20 23:49 79 109/49 L 09/30/20 23:35 85 90/40 L 09/30/20 23:25 93 20 92/38 L 09/30/20 23:23 95 20 83/36 L Pulse Ox Pulse Ox 10/01/20 10:00 97 10/01/20 09:00 94 L 10/01/20 08:54 93 L 10/01/20 08:00 93 L 10/01/20 07:15 100 10/01/20 07:00 100 10/01/20 06:45 99 10/01/20 06:31 97 10/01/20 06:15 96 10/01/20 06:00 94 L 10/01/20 05:46 96 10/01/20 05:31 93 L 10/01/20 05:26 97 10/01/20 05:16 99 10/01/20 05:00 100 10/01/20 04:45 100 10/01/20 04:30 100 10/01/20 04:15 100 10/01/20 04:00 98 10/01/20 03:45 98 10/01/20 03:30 97 10/01/20 03:15 98 10/01/20 03:00 98 10/01/20 02:45 98 10/01/20 02:30 97 10/01/20 02:15 99 10/01/20 02:12 97 10/01/20 02:08 97 10/01/20 02:00 98 10/01/20 01:58 97 10/01/20 00:50 98 10/01/20 00:20 95 09/30/20 23:49 09/30/20 23:35 09/30/20 23:25 95 09/30/20 23:23 95 - Problem List & Annotations (1) COVID-19 SNOMED Code(s): 373881782 Code(s): U07.1 - COVID-19 Status: Acute Current Visit: Yes (2) Hypoxemia SNOMED Code(s): 188665049 Code(s): R09.02 - HYPOXEMIA Status: Acute Current Visit: Yes - Problem List Review Problem List Initiated/Reviewed/Updated: Yes - My Orders Last 24 Hours: My Active Orders 10/01/20 10:36 Potassium Chloride [Klor-Con M20] 40 meq PO ONETIME ONE 10/01/20 10:37 Magnesium Sulfate/Water [Magnesium Sulfate in Water 4 GM/50 ML] 4 gm Premix Bag 1 bag IV ONETIME 10/01/20 10:45 Cholecalciferol (Vitamin D3) [Vitamin D3] 10,000 unit PO DAILY - Plan Plan:: Assessment and plan: 09/30/2020 1. Acute on chronic hypoxic respiratory failure ABG - PCO2 33, PO2 56, SO2 86.1% pulse ox O2 therapy. Keep SpO2 > 92 2. Early pneumonia or clinical pneumonia, Covid 19? or CAP? 3. Covid 19 was positive CXR - No acute change Blood culture Sputum culture MRSA screen Ferritin 141, CRP 10.3, D-dimer 2.08 Selvin COVID-19 monoclonal antibody was given I will not start her on antibiotics at this moment I would not like to start her on steroid at the early stage. Lovenox 60mg daily Home aspirin is on hold. Inhalers CRP and D-dimer daily 4. RICK? creatinine 1.2 on 08/12/2020 Avoid nephrotoxic meds Repeat renal function in am IVF 5. HTN Continue HCTZ 25mg daily Lisinopril 20mg daily is on hold Hydralazine prn 6. DM type 2 Metformin 500mg daily is on hold diabetic diet Insulin ss 7. GI and DVT prophylaxis: famotidine and lovenox 10/01/2020 1. Acute hypoxic respiratory failure secondary to COVID-19 Oxygen requirement significantly improved. On 1 L FiO2 via nasal cannula with oxygen saturations in the upper 90s. We will continue to wean off throughout the day. 2. Community-acquired pneumonia Repeat chest x-ray consistent with right midlung infiltrate or developing pneumonia WBC increased from 5.7-13.7. Blood culture Sputum culture MRSA screen On admission ferritin 141, CRP 10.3, D-dimer 2.08 Selvin COVID-19 monoclonal antibody was given Increase Rocephin to 2 g daily Start azithromycin 500 mg daily for 3 days Hold off on steroids at this time since hypoxemia is improving Lovenox 40mg daily Home aspirin is on hold. Inhalers CRP and D-dimer daily 3. Hypokalemia/hypomagnesemia Potassium 3.3, magnesium 1.6 Supplement both and repeat tomorrow 4. RICK: creatinine 1.2 on 08/12/2020 -resolved Renal function improved with creatinine down from 1.0 to 1.3 Avoid nephrotoxic meds Repeat renal function in am Stop IVF 5. Elevated troponintroponin increased from 0.078-0.137. 6. Hypoalbuminemia at 2.1, down from 2.7 on admission. Dietary consult. 7. Low vitamin D14.9, start vitamin D3 10,000 units daily 8. HTN Continue HCTZ 25mg daily Lisinopril 20mg daily is on hold Follow electrolytes Hydralazine prn 9. DM type 2 Metformin 500mg daily is on hold diabetic diet Insulin ss 107. GI and DVT prophylaxis: famotidine and lovenox
[2020-10-01] MEDS: Cholecalciferol (Vitamin D3) 5,000 UNIT Cap PO SCH (10:58)
[2020-10-01] MEDS ORDERED: Enoxaparin 60 MG/0.6 ML Syringe SUBCUT SCH (21:00)
[2020-10-01] MEDS ORDERED: Hydrochlorothiazide 25 MG Tab PO SCH (21:00)
[2020-10-01] MEDS ORDERED: Amitriptyline 25 MG Tab PO SCH (21:00)
[2020-10-01] MEDS: Saccharomyces Boulardii (Probiotic) 250 MG Cap PO SCH (21:11)
[2020-10-01] MEDS: cefTRIAXone 2 GM in Sodium Chloride 0.9% 100 ML IV SCH (21:11)
[2020-10-01] MEDS ORDERED: Famotidine 20 MG Tab PO SCH (21:45)
[2020-10-02] MEDS ORDERED: Lactated Ringers 1,000 ML IV ONE (00:25)
[2020-10-02] MEDS: Cholecalciferol (Vitamin D3) 5,000 UNIT Cap PO SCH (09:01)
[2020-10-02] MEDS: oxyCODONE 5 MG Tab PO PRN ×3 (09:01→22:59)
[2020-10-02] MEDS: Brimonidine 0.2% Ophth Soln 5 ML Bottle EYEBOTH SCH ×2 (09:01→20:24)
[2020-10-02] MEDS: Saccharomyces Boulardii (Probiotic) 250 MG Cap PO SCH ×2 (09:01→20:23)
[2020-10-02] MEDS: Enoxaparin 40 MG/0.4 ML Syringe SUBCUT SCH (09:02)
[2020-10-02] MEDS ORDERED: Potassium Chloride 20 MEQ Tab.ER PO ONE (10:34)
--- NOTE | 2020-10-02 10:36 | PCM.PN ---
- General Info Date of Service: 10/02/20 Admission Dx/Problem (Free Text): Admission Diagnosis/Problem Admission Diagnosis/Problem Respiratory failure with hypoxia Subjective Update: Patient had another episode of hypotension. She did receive 1 L normal saline which did improve her blood pressure. It was noted tell this morning that she continues to be on hydrochlorothiazide at night which is likely worsening her symptoms. She seems to have her worst blood pressure response in deep sleep. She has had a 3 pound weight gain, but she continues on only 1 L. Patient denies any worsening shortness of breath. Functional Status: Reports: Pain Controlled - Review of Systems General: Reports: No Symptoms HEENT: Reports: No Symptoms Pulmonary: Reports: No Symptoms Cardiovascular: Reports: No Symptoms Gastrointestinal: Reports: No Symptoms Musculoskeletal: Reports: No Symptoms Skin: Reports: No Symptoms Neurological: Reports: No Symptoms Psychiatric: Reports: No Symptoms - Patient Data Vitals - Most Recent: Last Vital Signs Temp 96.7 F L 10/02/20 07:40 Pulse 85 10/02/20 07:40 Resp 19 10/02/20 07:40 BP 99/52 L 10/02/20 07:40 Pulse Ox 92 L 10/02/20 07:40 Weight - Most Recent: 149 lb 6 oz I&O - Last 24 Hours: Intake & Output 10/01/20 10/02/20 10/02/20 22:59 06:59 14:59 Intake Total 1152 1200 Output Total 775 1400 250 Balance 377 -200 -250 Lab Results Last 24 Hours: Laboratory Results - last 24 hr 10/01/20 10/01/20 10/01/20 Range/Units 11:01 17:35 21:14 WBC (3.98-10.04) K/mm3 RBC (3.98-5.22) M/mm3 Hgb (11.2-15.7) gm/dl Hct (34.1-44.9) % MCV (79.4-94.8) fl MCH (25.6-32.2) pg MCHC (32.2-35.5) g/dl RDW Std Deviation (36.4-46.3) fL Plt Count (182-369) K/mm3 MPV (9.4-12.3) fl Neut % (Auto) (34.0-71.1) % Lymph % (Auto) (19.3-51.7) % [place] % (Auto) (4.7-12.5) % Eos % (Auto) (0.7-5.8) Baso % (Auto) (0.1-1.2) % Neut # (Auto) (1.56-6.13) K/mm3 Lymph # (Auto) (1.18-3.74) K/mm3 [place] # (Auto) (0.24-0.36) K/mm3 Eos # (Auto) (0.04-0.36) K/mm3 Baso # (Auto) (0.01-0.08) K/mm3 Sodium (136-145) mEq/L Potassium (3.5-5.1) mEq/L Chloride (98-107) mEq/L Carbon Dioxide (21-32) mEq/L Anion Gap (5-15) BUN (7-18) mg/dL Creatinine (0.55-1.02) mg/dL Est Cr Clr Drug Dosing mL/min Estimated GFR (MDRD) (>60) mL/min BUN/Creatinine Ratio (14-18) Glucose (83-115) mg/dL POC Glucose 192 H 144 H 192 H (83-110) mg/dL Calcium (8.5-10.1) mg/dL Total Bilirubin (0.2-1.0) mg/dL AST (15-37) U/L ALT (14-59) U/L Alkaline Phosphatase (46-116) U/L C-Reactive Protein (<1.0) mg/dL Total Protein (6.4-8.2) g/dl Albumin (3.4-5.0) g/dl Globulin gm/dL Albumin/Globulin Ratio (1-2) 10/02/20 10/02/20 10/02/20 Range/Units 05:19 05:19 06:20 WBC 5.99 (3.98-10.04) K/mm3 RBC 3.33 L (3.98-5.22) M/mm3 Hgb 9.2 L D (11.2-15.7) gm/dl Hct 29.2 L (34.1-44.9) % MCV 87.7 (79.4-94.8) fl MCH 27.6 (25.6-32.2) pg MCHC 31.5 L (32.2-35.5) g/dl RDW Std Deviation 48.4 H (36.4-46.3) fL Plt Count 268 (182-369) K/mm3 MPV 10.1 (9.4-12.3) fl Neut % (Auto) 76.6 H (34.0-71.1) % Lymph % (Auto) 18.0 L (19.3-51.7) % [place] % (Auto) 4.5 L (4.7-12.5) % Eos % (Auto) 0.5 L (0.7-5.8) Baso % (Auto) 0.2 (0.1-1.2) % Neut # (Auto) 4.59 (1.56-6.13) K/mm3 Lymph # (Auto) 1.08 L (1.18-3.74) K/mm3 [place] # (Auto) 0.27 (0.24-0.36) K/mm3 Eos # (Auto) 0.03 L (0.04-0.36) K/mm3 Baso # (Auto) 0.01 (0.01-0.08) K/mm3 Sodium 139 (136-145) mEq/L Potassium 3.3 L (3.5-5.1) mEq/L Chloride 102 (98-107) mEq/L Carbon Dioxide 30 (21-32) mEq/L Anion Gap 10.3 (5-15) BUN 14 (7-18) mg/dL Creatinine 0.9 (0.55-1.02) mg/dL Est Cr Clr Drug Dosing 41.80 mL/min Estimated GFR (MDRD) 60 (>60) mL/min BUN/Creatinine Ratio 15.6 (14-18) Glucose 91 (83-115) mg/dL POC Glucose 99 (83-110) mg/dL Calcium 7.6 L (8.5-10.1) mg/dL Total Bilirubin 0.2 (0.2-1.0) mg/dL AST 39 H (15-37) U/L ALT 21 (14-59) U/L Alkaline Phosphatase 67 (46-116) U/L C-Reactive Protein 14.2 H* (<1.0) mg/dL Total Protein 5.4 L (6.4-8.2) g/dl Albumin 1.7 L (3.4-5.0) g/dl Globulin 3.7 gm/dL Albumin/Globulin Ratio 0.5 L (1-2) Anthony Results Last 24 Hours: Microbiology 09/30/20 15:15 Aerobic Blood Culture - Preliminary Blood - Venous - Lab Draw NO GROWTH AFTER 1 DAY Anaerobic Blood Culture - Preliminary NO GROWTH AFTER 1 DAY 09/30/20 15:05 Aerobic Blood Culture - Preliminary Blood - Venous NO GROWTH AFTER 1 DAY Anaerobic Blood Culture - Preliminary NO GROWTH AFTER 1 DAY Med Orders - Current: Current Medications Acetaminophen (Tylenol) 650 mg RECTAL Q6H PRN PRN Reason: Pain (mild 1-3) Albuterol/Ipratropium (Duoneb 3.0-0.5 Mg/3 Ml) 3 ml NEB Q4H PRN PRN Reason: Shortness Of Breath/wheezing Amitriptyline HCl (Elavil) 25 mg PO BEDTIME [facility] Last Admin: 10/01/20 21:11 Dose: 25 mg Documented by: Brimonidine Tartrate (Alphagan 0.2% [facility]) 0 ml EYEBOTH BID [facility] Last Admin: 10/02/20 09:01 Dose: 1 drop Documented by: Cholecalciferol (Vitamin D3) 10,000 unit PO DAILY [facility] Last Admin: 10/02/20 09:01 Dose: 10,000 unit Documented by: Diphenhydramine HCl (Benadryl) 50 mg IVPUSH ONETIME PRN PRN Reason: hypersensitivity reaction Docusate Sodium (Colace) 100 mg PO BID PRN PRN Reason: Constipation Enoxaparin Sodium (Lovenox) 40 mg SUBCUT DAILY [facility] Last Admin: 10/02/20 09:02 Dose: 40 mg Documented by: Epinephrine HCl (Adrenalin) 0.3 mg IM ONETIME PRN PRN Reason: hypersensitivity reaction Famotidine (Pepcid) 20 mg PO BEDTIME [facility] Hydralazine HCl (Apresoline) 10 mg IVPUSH Q4H PRN PRN Reason: Hypertension Promethazine HCl 12.5 mg/ (Sodium Chloride) 50.5 mls @ 100 mls/hr IV Q6H PRN PRN Reason: Nausea/Vomiting Norepinephrine Bitartrate 4 mg (/ Dextrose/Water) 250 mls @ 7.5 mls/hr IV TITRATE ROSEANNA; Protocol Last Titration: 10/01/20 08:43 Dose: 0 mcg/min, 0 mls/hr Documented by: Ceftriaxone Sodium 2 gm/ (Sodium Chloride) 100 mls @ 200 mls/hr IV Q24H [facility] Last Admin: 10/01/20 21:11 Dose: 200 mls/hr Documented by: Insulin Human Lispro (Humalog) 0 unit SUBCUT QIDACANDBED [facility]; Protocol Last Admin: 10/02/20 07:03 Dose: Not Given Documented by: Methylprednisolone Sodium Succinate (Solu-Medrol) 125 mg IVPUSH ONETIME PRN PRN Reason: hypersensitivity reaction Oxycodone HCl (Oxycodone) 5 mg PO Q6H PRN PRN Reason: Pain (moderate 4-6) Last Admin: 10/02/20 09:01 Dose: 5 mg Documented by: Potassium Chloride (Klor-Con M20) 40 meq PO ONETIME ONE Stop: 10/02/20 10:35 Saccharomyces Boulardii (Florastor) 500 mg PO BID [facility] Last Admin: 10/02/20 09:01 Dose: 500 mg Documented by: Simvastatin (Zocor) 20 mg PO BEDTIME [facility] Last Admin: 10/01/20 21:11 Dose: 20 mg Documented by: Sodium Chloride (Saline Flush) 10 ml FLUSH ASDIRECTED PRN PRN Reason: Keep Vein Open Last Admin: 09/30/20 15:05 Dose: 10 ml Documented by: Discontinued Medications Acetaminophen (Tylenol) 650 mg PO NOW ONE Stop: 09/30/20 20:24 Last Admin: 09/30/20 20:33 Dose: 650 mg Documented by: Aspirin (Halfprin) 81 mg PO DAILY [facility] Enoxaparin Sodium (Lovenox) 60 mg SUBCUT DAILY [facility] Last Admin: 10/01/20 03:48 Dose: Not Given Documented by: Enoxaparin Sodium (Lovenox) 60 mg SUBCUT DAILY [facility] Last Admin: 10/01/20 00:58 Dose: 60 mg Documented by: Enoxaparin Sodium (Lovenox) 60 mg SUBCUT BEDTIME [facility] Famotidine (Pepcid) 20 mg IVPUSH ONETIME PRN PRN Reason: hypersensitivity reaction Last Admin: 10/01/20 01:09 Dose: 20 mg Documented by: Famotidine (Pepcid) 20 mg PO BID [facility] Last Admin: 10/01/20 22:03 Dose: 20 mg Documented by: Heparin Sodium (Porcine) (Heparin Sodium) 5,000 units SUBCUT Q8H [facility] Last Admin: 10/01/20 03:48 Dose: Not Given Documented by: Hydrochlorothiazide (Hydrochlorothiazide) 25 mg PO BEDTIME [facility] Last Admin: 10/01/20 21:11 Dose: 25 mg Documented by: Magnesium Sulfate 2 gm/ Premix 50 mls @ 25 mls/hr IV Q1H [facility] Stop: 09/30/20 18:29 Last Admin: 09/30/20 20:43 Dose: Not Given Documented by: Non-Formulary Medication 1,200 mg/ Non-Formulary Medication 1,200 mg/ Sodium Chloride 250 mls @ 250 mls/hr IV ONETIME ONE Stop: 09/30/20 17:23 Last Admin: 09/30/20 17:06 Dose: 250 mls/hr Documented by: Sodium Chloride (Normal Saline) 1,000 mls @ 500 mls/hr IV ONETIME ONE Stop: 09/30/20 18:24 Last Admin: 09/30/20 16:41 Dose: 500 mls/hr Documented by: Sodium Chloride (Normal Saline) 1,000 mls @ 500 mls/hr IV ONETIME ONE Stop: 09/30/20 18:31 Last Admin: 09/30/20 18:20 Dose: 500 mls/hr Documented by: Sodium Chloride (Normal Saline) 1,000 mls @ 50 mls/hr IV ASDIRECTED [facility] Last Admin: 10/01/20 01:20 Dose: 50 mls/hr Documented by: Sodium Chloride (Normal Saline) 500 mls @ 999 mls/hr IV .BOLUS ONE Stop: 09/30/20 23:09 Last Admin: 09/30/20 22:47 Dose: 999 mls/hr Documented by: Ceftriaxone Sodium 1 gm/ (Sodium Chloride) 100 mls @ 200 mls/hr IV Q24H [facility] Last Admin: 09/30/20 22:55 Dose: 200 mls/hr Documented by: Magnesium Sulfate 4 gm/ Premix 50 mls @ 12.5 mls/hr IV ONETIME ONE Stop: 10/01/20 14:36 Last Admin: 10/01/20 10:58 Dose: 12.5 mls/hr Documented by: Lactated Ringer's (Ringers, Lactated) 1,000 mls @ 999 mls/hr IV .BOLUS ONE Stop: 10/02/20 01:25 Last Admin: 10/02/20 00:44 Dose: 999 mls/hr Documented by: Magnesium Oxide (Magnesium Oxide) 800 mg PO ONETIME ONE Stop: 09/30/20 16:46 Last Admin: 09/30/20 17:18 Dose: 800 mg Documented by: Morphine Sulfate (Morphine) 2 mg IVPUSH Q4H PRN PRN Reason: Pain (severe 7-10) Stop: 10/01/20 21:41 Last Admin: 09/30/20 22:21 Dose: 2 mg Documented by: Ondansetron HCl (Zofran) 4 mg IVPUSH ONETIME ONE Stop: 09/30/20 19:55 Last Admin: 09/30/20 20:09 Dose: 4 mg Documented by: Potassium Chloride (Klor-Con M20) 40 meq PO ONETIME ONE Stop: 10/01/20 10:37 Last Admin: 10/01/20 10:58 Dose: 40 meq Documented by: Sodium Chloride (Saline Flush) 30 ml FLUSH ASDIRECTED [facility] Last Admin: 09/30/20 18:15 Dose: 30 ml Documented by: Tramadol HCl (Ultram) 100 mg PO ONETIME ONE Stop: 09/30/20 20:03 Last Admin: 09/30/20 20:43 Dose: Not Given Documented by: - Exam Quality Assessment: Supplemental Oxygen General: Alert, Oriented HEENT: Pupils Equal, Mucous Membr. Moist/[place]: Supple Lungs: Normal Respiratory Effort, Crackles Cardiovascular: Regular Rate, Regular Rhythm GI/Abdominal Exam: Normal Bowel Sounds, Soft, Non-Tender, No Distention Extremities: Normal Inspection, Normal Range of Motion, Non-Tender, No Pedal Edema, Normal Capillary Refill Sepsis Event Note - Evaluation Sepsis Screening Result: No Definite Risk - Focused Exam Vital Signs: Vital Signs Temp Pulse Resp BP Pulse Ox 10/02/20 07:40 96.7 F L 85 19 99/52 L 92 L 10/02/20 04:00 97.8 F 74 20 104/50 L 96 10/02/20 02:00 98 10/02/20 00:00 97.3 F 72 22 H 72/55 L 100 - Problem List & Annotations (1) COVID-19 SNOMED Code(s): 016780985 Code(s): U07.1 - COVID-19 Status: Acute Current Visit: Yes (2) Hypoxemia SNOMED Code(s): 470706462 Code(s): R09.02 - HYPOXEMIA Status: Acute Current Visit: Yes (3) Hypotension due to drugs Status: Acute Current Visit: Yes - Problem List Review Problem List Initiated/Reviewed/Updated: Yes - My Orders Last 24 Hours: My Active Orders 10/01/20 10:45 Cholecalciferol (Vitamin D3) [Vitamin D3] 10,000 unit PO DAILY 10/01/20 19:20 Up With Assistance [RC] ASDIRECTED 10/01/20 21:00 Saccharomyces Boulardii [Florastor] 500 mg PO BID cefTRIAXone [Rocephin] 2 gm Sodium Chloride 0.9% [Normal Saline] 100 ml IV Q24H 10/02/20 09:00 Enoxaparin [Lovenox] 40 mg SUBCUT DAILY 10/02/20 10:34 Potassium Chloride [Klor-Con M20] 40 meq PO ONETIME ONE 10/02/20 21:00 Famotidine [Pepcid] 20 mg PO BEDTIME 10/03/20 05:11 MAGNESIUM [CHEM] AM - Plan Plan:: Assessment and plan: 09/30/2020 1. Acute on chronic hypoxic respiratory failure ABG - PCO2 33, PO2 56, SO2 86.1% pulse ox O2 therapy. Keep SpO2 > 92 2. Early pneumonia or clinical pneumonia, Covid 19? or CAP? 3. Covid 19 was positive CXR - No acute change Blood culture Sputum culture MRSA screen Ferritin 141, CRP 10.3, D-dimer 2.08 Matthew's COVID-19 monoclonal antibody was given I will not start her on antibiotics at this moment I would not like to start her on steroid at the early stage. Lovenox 60mg daily Home aspirin is on hold. Inhalers CRP and D-dimer daily 4. RICK? creatinine 1.2 on 08/12/2020 Avoid nephrotoxic meds Repeat renal function in am IVF 5. HTN Continue HCTZ 25mg daily Lisinopril 20mg daily is on hold Hydralazine prn 6. DM type 2 Metformin 500mg daily is on hold diabetic diet Insulin ss 7. GI and DVT prophylaxis: famotidine and lovenox 10/01/2020 1. Acute hypoxic respiratory failure secondary to COVID-19 Oxygen requirement significantly improved. On 1 L FiO2 via nasal cannula with oxygen saturations in the upper 90s. We will continue to wean off throughout the day. 2. Community-acquired pneumonia Repeat chest x-ray consistent with right midlung infiltrate or developing pneumonia WBC increased from 5.7-13.7. Blood culture Sputum culture MRSA screen On admission ferritin 141, CRP 10.3, D-dimer 2.08 Matthew's COVID-19 monoclonal antibody was given Increase Rocephin to 2 g daily Start azithromycin 500 mg daily for 3 days Hold off on steroids at this time since hypoxemia is improving Lovenox 40mg daily Home aspirin is on hold. Inhalers CRP and D-dimer daily 3. Hypokalemia/hypomagnesemia Potassium 3.3, magnesium 1.6 Supplement both and repeat tomorrow 4. RICK: creatinine 1.2 on 08/12/2020 -resolved Renal function improved with creatinine down from 1.0 to 1.3 Avoid nephrotoxic meds Repeat renal function in am Stop IVF 5. Elevated troponintroponin increased from 0.078-0.137. 6. Hypoalbuminemia at 2.1, down from 2.7 on admission. Dietary consult. 7. Low vitamin D14.9, start vitamin D3 10,000 units daily 8. HTN Continue HCTZ 25mg daily Lisinopril 20mg daily is on hold Follow electrolytes Hydralazine prn 9. DM type 2 Metformin 500mg daily is on hold diabetic diet Insulin ss 10. GI and DVT prophylaxis: famotidine and lovenox October 02, 2020 84-year-old with COVID-19 and acute hypoxia on day 2 of hospitalization. Patient is still on only 1 L of O2 via nasal cannula. She did receive 25 mg of hydrochlorothiazide prior to bed last night and had another several episodes in the middle the night of low blood pressures requiring a fluid bolus. This is likely secondary to both the COVID-19 and medication. Hydrochlorothiazide will be held. She did have a 3 pound weight gain and 2 g drop in her hemoglobin. This is likely delusional. Also hypokalemia secondary to the above. Potassium today was 3.3. Blood sugars continue to be well controlled on sliding scale insulin. Acute renal injury has resolved with a creatinine of 0.9 and an estimated GFR greater than 60. Magnesium was replaced yesterday. Continue to treat pneumonia as community-acquired pneumonia with Rocephin and start azithromycin. Length of stay 2-3 more days.
[2020-10-02] MEDS: Azithromycin 250 MG Tab PO SCH (11:00)
[2020-10-02] MEDS: Benzocaine/Cetylpyridinium/Menthol Lozenge MUCMEM PRN ×2 (11:00→20:23)
[2020-10-02] MEDS: cefTRIAXone 2 GM in Sodium Chloride 0.9% 100 ML IV SCH (20:22)
[2020-10-02] MEDS: Famotidine 20 MG Tab PO SCH (20:23)
[2020-10-02] MEDS: Simvastatin 20 MG Tab PO SCH (20:23)
--- NOTE | 2020-10-03 08:03 | PCM.PN ---
- General Info Date of Service: 10/03/20 Admission Dx/Problem (Free Text): Admission Diagnosis/Problem Admission Diagnosis/Problem Respiratory failure with hypoxia Subjective Update: Patient continues to improve. She is only on 0.5 L per nasal cannula. When she worked with PT today she did have an episode of sinus tachycardia likely secondary to deconditioning. Functional Status: Reports: Pain Controlled - Review of Systems General: Reports: No Symptoms HEENT: Reports: No Symptoms Pulmonary: Reports: No Symptoms Cardiovascular: Reports: No Symptoms Gastrointestinal: Reports: Nausea - Patient Data Vitals - Most Recent: Last Vital Signs Temp 98.1 F 10/03/20 04:00 Pulse 88 10/02/20 20:00 Resp 21 H 10/03/20 04:00 BP 114/57 L 10/03/20 04:00 Pulse Ox 94 L 10/03/20 06:02 Weight - Most Recent: 148 lb I&O - Last 24 Hours: Intake & Output 10/02/20 10/03/20 10/03/20 22:59 06:59 14:59 Intake Total 390 550 Output Total 910 950 Balance -520 -400 Lab Results Last 24 Hours: Laboratory Results - last 24 hr 10/02/20 10/02/20 10/02/20 Range/Units 11:03 17:15 21:37 WBC (3.98-10.04) K/mm3 RBC (3.98-5.22) M/mm3 Hgb (11.2-15.7) gm/dl Hct (34.1-44.9) % MCV (79.4-94.8) fl MCH (25.6-32.2) pg MCHC (32.2-35.5) g/dl RDW Std Deviation (36.4-46.3) fL Plt Count (182-369) K/mm3 MPV (9.4-12.3) fl Neut % (Auto) (34.0-71.1) % Lymph % (Auto) (19.3-51.7) % Mccone % (Auto) (4.7-12.5) % Eos % (Auto) (0.7-5.8) Baso % (Auto) (0.1-1.2) % Neut # (Auto) (1.56-6.13) K/mm3 Lymph # (Auto) (1.18-3.74) K/mm3 Mccone # (Auto) (0.24-0.36) K/mm3 Eos # (Auto) (0.04-0.36) K/mm3 Baso # (Auto) (0.01-0.08) K/mm3 Sodium (136-145) mEq/L Potassium (3.5-5.1) mEq/L Chloride (98-107) mEq/L Carbon Dioxide (21-32) mEq/L Anion Gap (5-15) BUN (7-18) mg/dL Creatinine (0.55-1.02) mg/dL Est Cr Clr Drug Dosing mL/min Estimated GFR (MDRD) (>60) mL/min BUN/Creatinine Ratio (14-18) Glucose (83-115) mg/dL POC Glucose 318 H 132 H 281 H (83-110) mg/dL Calcium (8.5-10.1) mg/dL Magnesium (1.8-2.4) mg/dl Total Bilirubin (0.2-1.0) mg/dL AST (15-37) U/L ALT (14-59) U/L Alkaline Phosphatase (46-116) U/L C-Reactive Protein (<1.0) mg/dL Total Protein (6.4-8.2) g/dl Albumin (3.4-5.0) g/dl Globulin gm/dL Albumin/Globulin Ratio (1-2) 10/03/20 10/03/20 10/03/20 Range/Units 04:43 04:43 04:43 WBC 4.89 (3.98-10.04) K/mm3 RBC 3.52 L (3.98-5.22) M/mm3 Hgb 9.6 L (11.2-15.7) gm/dl Hct 31.0 L (34.1-44.9) % MCV 88.1 (79.4-94.8) fl MCH 27.3 (25.6-32.2) pg MCHC 31.0 L (32.2-35.5) g/dl RDW Std Deviation 48.0 H (36.4-46.3) fL Plt Count 305 (182-369) K/mm3 MPV 10.0 (9.4-12.3) fl Neut % (Auto) 68.7 (34.0-71.1) % Lymph % (Auto) 21.7 (19.3-51.7) % Mccone % (Auto) 8.2 (4.7-12.5) % Eos % (Auto) 1.2 (0.7-5.8) Baso % (Auto) 0.0 L (0.1-1.2) % Neut # (Auto) 3.36 (1.56-6.13) K/mm3 Lymph # (Auto) 1.06 L (1.18-3.74) K/mm3 Mccone # (Auto) 0.40 H (0.24-0.36) K/mm3 Eos # (Auto) 0.06 (0.04-0.36) K/mm3 Baso # (Auto) 0.00 L (0.01-0.08) K/mm3 Sodium 136 (136-145) mEq/L Potassium 3.6 (3.5-5.1) mEq/L Chloride 102 (98-107) mEq/L Carbon Dioxide 32 (21-32) mEq/L Anion Gap 5.6 (5-15) BUN 14 (7-18) mg/dL Creatinine 0.8 (0.55-1.02) mg/dL Est Cr Clr Drug Dosing 46.19 mL/min Estimated GFR (MDRD) > 60 (>60) mL/min BUN/Creatinine Ratio 17.5 (14-18) Glucose 88 (83-115) mg/dL POC Glucose (83-110) mg/dL Calcium 8.0 L (8.5-10.1) mg/dL Magnesium 1.5 L (1.8-2.4) mg/dl Total Bilirubin 0.2 (0.2-1.0) mg/dL AST 38 H (15-37) U/L ALT 28 (14-59) U/L Alkaline Phosphatase 69 (46-116) U/L C-Reactive Protein 5.8 H* (<1.0) mg/dL Total Protein 5.6 L (6.4-8.2) g/dl Albumin 1.7 L (3.4-5.0) g/dl Globulin 3.9 gm/dL Albumin/Globulin Ratio 0.4 L (1-2) 10/03/20 Range/Units 06:23 WBC (3.98-10.04) K/mm3 RBC (3.98-5.22) M/mm3 Hgb (11.2-15.7) gm/dl Hct (34.1-44.9) % MCV (79.4-94.8) fl MCH (25.6-32.2) pg MCHC (32.2-35.5) g/dl RDW Std Deviation (36.4-46.3) fL Plt Count (182-369) K/mm3 MPV (9.4-12.3) fl Neut % (Auto) (34.0-71.1) % Lymph % (Auto) (19.3-51.7) % Mccone % (Auto) (4.7-12.5) % Eos % (Auto) (0.7-5.8) Baso % (Auto) (0.1-1.2) % Neut # (Auto) (1.56-6.13) K/mm3 Lymph # (Auto) (1.18-3.74) K/mm3 Mccone # (Auto) (0.24-0.36) K/mm3 Eos # (Auto) (0.04-0.36) K/mm3 Baso # (Auto) (0.01-0.08) K/mm3 Sodium (136-145) mEq/L Potassium (3.5-5.1) mEq/L Chloride (98-107) mEq/L Carbon Dioxide (21-32) mEq/L Anion Gap (5-15) BUN (7-18) mg/dL Creatinine (0.55-1.02) mg/dL Est Cr Clr Drug Dosing mL/min Estimated GFR (MDRD) (>60) mL/min BUN/Creatinine Ratio (14-18) Glucose (83-115) mg/dL POC Glucose 101 (83-110) mg/dL Calcium (8.5-10.1) mg/dL Magnesium (1.8-2.4) mg/dl Total Bilirubin (0.2-1.0) mg/dL AST (15-37) U/L ALT (14-59) U/L Alkaline Phosphatase (46-116) U/L C-Reactive Protein (<1.0) mg/dL Total Protein (6.4-8.2) g/dl Albumin (3.4-5.0) g/dl Globulin gm/dL Albumin/Globulin Ratio (1-2) Anthony Results Last 24 Hours: Microbiology 09/30/20 15:15 Aerobic Blood Culture - Preliminary Blood - Venous - Lab Draw NO GROWTH AFTER 2 DAYS Anaerobic Blood Culture - Preliminary NO GROWTH AFTER 2 DAYS 09/30/20 15:05 Aerobic Blood Culture - Preliminary Blood - Venous NO GROWTH AFTER 2 DAYS Anaerobic Blood Culture - Preliminary NO GROWTH AFTER 2 DAYS Med Orders - Current: Current Medications Acetaminophen (Tylenol) 650 mg RECTAL Q6H PRN PRN Reason: Pain (mild 1-3) Albuterol/Ipratropium (Duoneb 3.0-0.5 Mg/3 Ml) 3 ml NEB Q4H PRN PRN Reason: Shortness Of Breath/wheezing Azithromycin (Zithromax) 500 mg PO DAILY [facility] Stop: 10/04/20 09:01 Last Admin: 10/02/20 11:00 Dose: 500 mg Documented by: Benzocaine/Menthol (Cepacol Sore Throat) 1 lozenge MUCMEM Q2HR PRN PRN Reason: Sore Throat Last Admin: 10/02/20 20:23 Dose: 1 lozenge Documented by: Brimonidine Tartrate (Alphagan 0.2% Ophth Soln) 0 ml EYEBOTH BID [facility] Last Admin: 10/02/20 20:24 Dose: 1 drop Documented by: Cholecalciferol (Vitamin D3) 10,000 unit PO DAILY [facility] Last Admin: 10/02/20 09:01 Dose: 10,000 unit Documented by: Docusate Sodium (Colace) 100 mg PO BID PRN PRN Reason: Constipation Enoxaparin Sodium (Lovenox) 40 mg SUBCUT DAILY [facility] Last Admin: 10/02/20 09:02 Dose: 40 mg Documented by: Famotidine (Pepcid) 20 mg PO BEDTIME [facility] Last Admin: 10/02/20 20:23 Dose: 20 mg Documented by: Hydralazine HCl (Apresoline) 10 mg IVPUSH Q4H PRN PRN Reason: Hypertension Promethazine HCl 12.5 mg/ (Sodium Chloride) 50.5 mls @ 100 mls/hr IV Q6H PRN PRN Reason: Nausea/Vomiting Norepinephrine Bitartrate 4 mg (/ Dextrose/Water) 250 mls @ 7.5 mls/hr IV TITRATE [facility]; Protocol Last Titration: 10/01/20 08:43 Dose: 0 mcg/min, 0 mls/hr Documented by: Ceftriaxone Sodium 2 gm/ (Sodium Chloride) 100 mls @ 200 mls/hr IV Q24H [facility] Last Admin: 10/02/20 20:22 Dose: 200 mls/hr Documented by: Insulin Human Lispro (Humalog) 0 unit SUBCUT QIDACANDBED [facility]; Protocol Last Admin: 10/03/20 06:49 Dose: Not Given Documented by: Oxycodone HCl (Oxycodone) 5 mg PO Q6H PRN PRN Reason: Pain (moderate 4-6) Last Admin: 10/02/20 22:59 Dose: 5 mg Documented by: Saccharomyces Boulardii (Florastor) 500 mg PO BID [facility] Last Admin: 10/02/20 20:23 Dose: 500 mg Documented by: Simvastatin (Zocor) 20 mg PO BEDTIME [facility] Last Admin: 10/02/20 20:23 Dose: 20 mg Documented by: Sodium Chloride (Saline Flush) 10 ml FLUSH ASDIRECTED PRN PRN Reason: Keep Vein Open Last Admin: 09/30/20 15:05 Dose: 10 ml Documented by: Discontinued Medications Acetaminophen (Tylenol) 650 mg PO NOW ONE Stop: 09/30/20 20:24 Last Admin: 09/30/20 20:33 Dose: 650 mg Documented by: Amitriptyline HCl (Elavil) 25 mg PO BEDTIME [facility] Last Admin: 10/01/20 21:11 Dose: 25 mg Documented by: Aspirin (Halfprin) 81 mg PO DAILY [facility] Diphenhydramine HCl (Benadryl) 50 mg IVPUSH ONETIME PRN PRN Reason: hypersensitivity reaction Enoxaparin Sodium (Lovenox) 60 mg SUBCUT DAILY [facility] Last Admin: 10/01/20 03:48 Dose: Not Given Documented by: Enoxaparin Sodium (Lovenox) 60 mg SUBCUT DAILY [facility] Last Admin: 10/01/20 00:58 Dose: 60 mg Documented by: Enoxaparin Sodium (Lovenox) 60 mg SUBCUT BEDTIME [facility] Epinephrine HCl (Adrenalin) 0.3 mg IM ONETIME PRN PRN Reason: hypersensitivity reaction Famotidine (Pepcid) 20 mg IVPUSH ONETIME PRN PRN Reason: hypersensitivity reaction Last Admin: 10/01/20 01:09 Dose: 20 mg Documented by: Famotidine (Pepcid) 20 mg PO BID [facility] Last Admin: 10/01/20 22:03 Dose: 20 mg Documented by: Heparin Sodium (Porcine) (Heparin Sodium) 5,000 units SUBCUT Q8H [facility] Last Admin: 10/01/20 03:48 Dose: Not Given Documented by: Hydrochlorothiazide (Hydrochlorothiazide) 25 mg PO BEDTIME [facility] Last Admin: 10/01/20 21:11 Dose: 25 mg Documented by: Magnesium Sulfate 2 gm/ Premix 50 mls @ 25 mls/hr IV Q1H [facility] Stop: 09/30/20 18:29 Last Admin: 09/30/20 20:43 Dose: Not Given Documented by: Non-Formulary Medication 1,200 mg/ Non-Formulary Medication 1,200 mg/ Sodium Chloride 250 mls @ 250 mls/hr IV ONETIME ONE Stop: 09/30/20 17:23 Last Admin: 09/30/20 17:06 Dose: 250 mls/hr Documented by: Sodium Chloride (Normal Saline) 1,000 mls @ 500 mls/hr IV ONETIME ONE Stop: 09/30/20 18:24 Last Admin: 09/30/20 16:41 Dose: 500 mls/hr Documented by: Sodium Chloride (Normal Saline) 1,000 mls @ 500 mls/hr IV ONETIME ONE Stop: 09/30/20 18:31 Last Admin: 09/30/20 18:20 Dose: 500 mls/hr Documented by: Sodium Chloride (Normal Saline) 1,000 mls @ 50 mls/hr IV ASDIRECTED [facility] Last Admin: 10/01/20 01:20 Dose: 50 mls/hr Documented by: Sodium Chloride (Normal Saline) 500 mls @ 999 mls/hr IV .BOLUS ONE Stop: 09/30/20 23:09 Last Admin: 09/30/20 22:47 Dose: 999 mls/hr Documented by: Ceftriaxone Sodium 1 gm/ (Sodium Chloride) 100 mls @ 200 mls/hr IV Q24H [facility] Last Admin: 09/30/20 22:55 Dose: 200 mls/hr Documented by: Magnesium Sulfate 4 gm/ Premix 50 mls @ 12.5 mls/hr IV ONETIME ONE Stop: 10/01/20 14:36 Last Admin: 10/01/20 10:58 Dose: 12.5 mls/hr Documented by: Lactated Ringer's (Ringers, Lactated) 1,000 mls @ 999 mls/hr IV .BOLUS ONE Stop: 10/02/20 01:25 Last Admin: 10/02/20 00:44 Dose: 999 mls/hr Documented by: Magnesium Oxide (Magnesium Oxide) 800 mg PO ONETIME ONE Stop: 09/30/20 16:46 Last Admin: 09/30/20 17:18 Dose: 800 mg Documented by: Methylprednisolone Sodium Succinate (Solu-Medrol) 125 mg IVPUSH ONETIME PRN PRN Reason: hypersensitivity reaction Morphine Sulfate (Morphine) 2 mg IVPUSH Q4H PRN PRN Reason: Pain (severe 7-10) Stop: 10/01/20 21:41 Last Admin: 09/30/20 22:21 Dose: 2 mg Documented by: Ondansetron HCl (Zofran) 4 mg IVPUSH ONETIME ONE Stop: 09/30/20 19:55 Last Admin: 09/30/20 20:09 Dose: 4 mg Documented by: Potassium Chloride (Klor-Con M20) 40 meq PO ONETIME ONE Stop: 10/01/20 10:37 Last Admin: 10/01/20 10:58 Dose: 40 meq Documented by: Potassium Chloride (Klor-Con M20) 40 meq PO ONETIME ONE Stop: 10/02/20 10:35 Last Admin: 10/02/20 11:00 Dose: 40 meq Documented by: Sodium Ch[facility] ([facility]ine Flush) [facility] Admin: 09/30/20 18:15 Dose: 30 ml Documented by: Tramadol HCl (Ultram) 100 mg PO ONETIME ONE Stop: 09/30/20 20:03 Last Admin: 09/30/20 20:43 Dose: Not Given Documented by: - Exam Quality Assessment: Supplemental Oxygen General: Alert, Oriented HEENT: Pupils Equal, Mucous Membr. Moist/[place] Neck: Supple Lungs: Normal Respiratory Effort, Crackles (Minimal bibasilar) Cardiovascular: Regular Rate, Regular Rhythm GI/Abdominal Exam: Normal Bowel Sounds, Soft, Non-Tender, No Distention, No Abnormal Bruit Extremities: Normal Inspection, Normal Range of Motion, Non-Tender, No Pedal Edema, Normal Capillary Refill Sepsis Event Note - Evaluation Sepsis Screening Result: No Definite Risk - Focused Exam Vital Signs: Vital Signs Temp Resp BP Pulse Ox Pulse Ox 10/03/20 06:02 94 L 10/03/20 04:00 98.1 F 21 H 114/57 L 95 10/03/20 02:00 96 10/03/20 00:00 97.6 F 15 118/62 92 L - Problem List & Annotations (1) COVID-19 SNOMED Code(s): 419303776 Code(s): U07.1 - COVID-19 Status: Acute Current Visit: Yes (2) Hypoxemia SNOMED Code(s): 708615399 Code(s): R09.02 - HYPOXEMIA Status: Acute Current Visit: Yes (3) Hypotension due to drugs Status: Acute Current Visit: Yes - Problem List Review Problem List Initiated/Reviewed/Updated: Yes - My Orders Last 24 Hours: My Active Orders 10/02/20 09:00 Enoxaparin [Lovenox] 40 mg SUBCUT DAILY 10/02/20 10:30 Azithromycin [Zithromax] 500 mg PO DAILY 10/02/20 10:51 Benzocaine/Cetylpyrd/Menthol [Cepacol Sore Throat] 1 lozenge MUCMEM Q2HR PRN 10/02/20 11:07 Blood Glucose Check, Bedside [RC] QIDACANDBED 10/02/20 14:23 RT Chest Physiotherapy [RC] ASDIRECTED RT Incentive Spirometry [RC] ASDIRECTED 10/02/20 21:00 Famotidine [Pepcid] 20 mg PO BEDTIME - Plan Plan:: Assessment and plan: 09/30/2020 1. Acute on chronic hypoxic respiratory failure ABG - PCO2 33, PO2 56, SO2 86.1% pulse ox O2 therapy. Keep SpO2 > 92 2. Early pneumonia or clinical pneumonia, Covid 19? or CAP? 3. Covid 19 was positive CXR - No acute change Blood culture Sputum culture MRSA screen Ferritin 141, CRP 10.3, D-dimer 2.08 Matthew's COVID-19 monoclonal antibody was given I will not start her on antibiotics at this moment I would not like to start her on steroid at the early stage. Lovenox 60mg daily Home aspirin is on hold. Inhalers CRP and D-dimer daily 4. RICK? creatinine 1.2 on 08/12/2020 Avoid nephrotoxic meds Repeat renal function in am IVF 5. HTN Continue HCTZ 25mg daily Lisinopril 20mg daily is on hold Hydralazine prn 6. DM type 2 Metformin 500mg daily is on hold diabetic diet Insulin ss 7. GI and DVT prophylaxis: famotidine and lovenox 10/01/2020 1. Acute hypoxic respiratory failure secondary to COVID-19 Oxygen requirement significantly improved. On 1 L FiO2 via nasal cannula with oxygen saturations in the upper 90s. We will continue to wean off throughout the day. 2. Community-acquired pneumonia Repeat chest x-ray consistent with right midlung infiltrate or developing pneumonia WBC increased from 5.7-13.7. Blood culture Sputum culture MRSA screen On admission ferritin 141, CRP 10.3, D-dimer 2.08 Matthew's COVID-19 monoclonal antibody was given Increase Rocephin to 2 g daily Start azithromycin 500 mg daily for 3 days Hold off on steroids at this time since hypoxemia is improving Lovenox 40mg daily Home aspirin is on hold. Inhalers CRP and D-dimer daily 3. Hypokalemia/hypomagnesemia Potassium 3.3, magnesium 1.6 Supplement both and repeat tomorrow 4. RICK: creatinine 1.2 on 08/12/2020 -resolved Renal function improved with creatinine down from 1.0 to 1.3 Avoid nephrotoxic meds Repeat renal function in am Stop IVF 5. Elevated troponintroponin increased from 0.078-0.137. 6. Hypoalbuminemia at 2.1, down from 2.7 on admission. Dietary consult. 7. Low vitamin D14.9, start vitamin D3 10,000 units daily 8. HTN Continue HCTZ 25mg daily Lisinopril 20mg daily is on hold Follow electrolytes Hydralazine prn 9. DM type 2 Metformin 500mg daily is on hold diabetic diet Insulin ss 10. GI and DVT prophylaxis: famotidine and lovenox October 02, 2020 84-year-old with COVID-19 and acute hypoxia on day 2 of hospitalization. Patient is still on only 1 L of O2 via nasal cannula. She did receive 25 mg of hydrochlorothiazide prior to bed last night and had another several episodes in the middle the night of low blood pressures requiring a fluid bolus. This is likely secondary to both the COVID-19 and medication. Hydrochlorothiazide will be held. She did have a 3 pound weight gain and 2 g drop in her hemoglobin. This is likely delusional. Also hypokalemia secondary to the above. Potassium today was 3.3. Blood sugars continue to be well controlled on sliding scale insulin. Acute renal injury has resolved with a creatinine of 0.9 and an estimated GFR greater than 60. Magnesium was replaced yesterday. Continue to treat pneumonia as community-acquired pneumonia with Rocephin and start azithromycin. Length of stay 2-3 more days. October 03, 2020 84-year-old female with COVID-19 and hypoxemia on 0.5 L per nasal cannula today. Patient is doing well, but did have an episode of sinus tachycardia when working with physical therapy. This did resolve with a little rest. She did not require more oxygen at that time. She did not have any more episodes of hypotension. She continues azithromycin and ceftriaxone for her community- acquired pneumonia. She has been afebrile and her white count is 4.9. Acute kidney injury has resolved and her creatinine is 0.8 at this time. She is currently off all blood pressure medications. Blood sugars have been stable. She should be ready for discharge in the next couple of days. I prefer to get her on room air or at least greater than 5 days of IV antibiotics.
[2020-10-03] MEDS: Saccharomyces Boulardii (Probiotic) 250 MG Cap PO SCH ×2 (08:49→21:09)
[2020-10-03] MEDS: oxyCODONE 5 MG Tab PO PRN ×3 (08:49→21:11)
[2020-10-03] MEDS: Brimonidine 0.2% Ophth Soln 5 ML Bottle EYEBOTH SCH ×2 (08:49→21:09)
[2020-10-03] MEDS: Cholecalciferol (Vitamin D3) 5,000 UNIT Cap PO SCH (08:50)
[2020-10-03] MEDS: Azithromycin 250 MG Tab PO SCH (08:50)
[2020-10-03] MEDS: Enoxaparin 40 MG/0.4 ML Syringe SUBCUT SCH (08:50)
[2020-10-03] MEDS ORDERED: Magnesium Sulfate/Water 4 GM in Premix Bag 1 BAG IV ONE (15:30)
[2020-10-03] MEDS ORDERED: Aluminum Hydroxide/Magnesium Hydroxide/Simethicone Susp 30 ML Cup PO ONE (18:13)
[2020-10-03] MEDS: Magnesium Oxide 400 MG Tab PO SCH (21:10)
[2020-10-03] MEDS: Famotidine 20 MG Tab PO SCH (21:10)
[2020-10-03] MEDS: Simvastatin 20 MG Tab PO SCH (21:11)
[2020-10-03] MEDS: cefTRIAXone 2 GM in Sodium Chloride 0.9% 100 ML IV SCH (21:13)
[2020-10-04] MEDS: oxyCODONE 5 MG Tab PO PRN ×3 (05:25→21:56)
[2020-10-04] MEDS: Magnesium Oxide 400 MG Tab PO SCH ×2 (09:37→21:54)
[2020-10-04] MEDS: Saccharomyces Boulardii (Probiotic) 250 MG Cap PO SCH ×2 (09:38→21:53)
[2020-10-04] MEDS: Cholecalciferol (Vitamin D3) 5,000 UNIT Cap PO SCH (09:38)
[2020-10-04] MEDS: Azithromycin 250 MG Tab PO SCH (09:39)
[2020-10-04] MEDS: Enoxaparin 40 MG/0.4 ML Syringe SUBCUT SCH (09:40)
[2020-10-04] MEDS: Brimonidine 0.2% Ophth Soln 5 ML Bottle EYEBOTH SCH ×2 (09:42→21:53)
--- NOTE | 2020-10-04 10:37 | PCM.PN ---
- General Info Date of Service: 10/04/20 Admission Dx/Problem (Free Text): Admission Diagnosis/Problem Admission Diagnosis/Problem Respiratory failure with hypoxia Subjective Update: No overnight or acute issues. No fever or chills. No chest pain or new complaints other than the usual polyarthritis. She is now on RA satting very well. Her HRr however goes up with exertion of activities. Functional Status: Reports: Pain Controlled, Tolerating Diet, Ambulating, Urinating. Denies: New Symptoms - Review of Systems General: Denies: Fever, Chills Pulmonary: Denies: Shortness of Breath Cardiovascular: Denies: Chest Pain Gastrointestinal: Denies: Abdominal Pain, Nausea, Vomiting Genitourinary: Denies: Frequency Musculoskeletal: Reports: Joint Pain (all over) Skin: Denies: No Symptoms Neurological: Reports: Gait Disturbance. Denies: Confusion, Weakness Psychiatric: Denies: Depression, Anxiety - Patient Data Vitals - Most Recent: Last Vital Signs Temp 36.6 C 10/04/20 09:34 Pulse 83 10/04/20 09:34 Resp 20 10/04/20 09:34 BP 124/68 10/04/20 09:34 Pulse Ox 94 L 10/04/20 09:34 Weight - Most Recent: 68.084 kg I&O - Last 24 Hours: Intake & Output 10/03/20 10/04/20 10/04/20 22:59 06:59 14:59 Intake Total 210 700 Output Total 250 975 Balance -40 -275 Lab Results Last 24 Hours: Laboratory Results - last 24 hr 10/03/20 10/03/20 10/03/20 Range/Units 12:10 17:38 20:48 WBC (3.98-10.04) K/mm3 RBC (3.98-5.22) M/mm3 Hgb (11.2-15.7) gm/dl Hct (34.1-44.9) % MCV (79.4-94.8) fl MCH (25.6-32.2) pg MCHC (32.2-35.5) g/dl RDW Std Deviation (36.4-46.3) fL Plt Count (182-369) K/mm3 MPV (9.4-12.3) fl Neut % (Auto) (34.0-71.1) % Lymph % (Auto) (19.3-51.7) % [place] % (Auto) (4.7-12.5) % Eos % (Auto) (0.7-5.8) Baso % (Auto) (0.1-1.2) % Neut # (Auto) (1.56-6.13) K/mm3 Lymph # (Auto) (1.18-3.74) K/mm3 [place] # (Auto) (0.24-0.36) K/mm3 Eos # (Auto) (0.04-0.36) K/mm3 Baso # (Auto) (0.01-0.08) K/mm3 Sodium (136-145) mEq/L Potassium (3.5-5.1) mEq/L Chloride (98-107) mEq/L Carbon Dioxide (21-32) mEq/L Anion Gap (5-15) BUN (7-18) mg/dL Creatinine (0.55-1.02) mg/dL Est Cr Clr Drug Dosing mL/min Estimated GFR (MDRD) (>60) mL/min BUN/Creatinine Ratio (14-18) Glucose (83-115) mg/dL POC Glucose 308 H 162 H 193 H (83-110) mg/dL Calcium (8.5-10.1) mg/dL Magnesium (1.8-2.4) mg/dl Total Bilirubin (0.2-1.0) mg/dL AST (15-37) U/L ALT (14-59) U/L Alkaline Phosphatase (46-116) U/L C-Reactive Protein (<1.0) mg/dL Total Protein (6.4-8.2) g/dl Albumin (3.4-5.0) g/dl Globulin gm/dL Albumin/Globulin Ratio (1-2) 10/04/20 10/04/20 10/04/20 Range/Units 05:02 05:02 05:02 WBC 5.88 (3.98-10.04) K/mm3 RBC 3.41 L (3.98-5.22) M/mm3 Hgb 9.4 L (11.2-15.7) gm/dl Hct 29.8 L (34.1-44.9) % MCV 87.4 (79.4-94.8) fl MCH 27.6 (25.6-32.2) pg MCHC 31.5 L (32.2-35.5) g/dl RDW Std Deviation 46.7 H (36.4-46.3) fL Plt Count 369 (182-369) K/mm3 MPV 9.5 (9.4-12.3) fl Neut % (Auto) 67.2 (34.0-71.1) % Lymph % (Auto) 20.9 (19.3-51.7) % [place] % (Auto) 9.2 (4.7-12.5) % Eos % (Auto) 2.0 (0.7-5.8) Baso % (Auto) 0.2 (0.1-1.2) % Neut # (Auto) 3.95 (1.56-6.13) K/mm3 Lymph # (Auto) 1.23 (1.18-3.74) K/mm3 [place] # (Auto) 0.54 H (0.24-0.36) K/mm3 Eos # (Auto) 0.12 (0.04-0.36) K/mm3 Baso # (Auto) 0.01 (0.01-0.08) K/mm3 Sodium 142 (136-145) mEq/L Potassium 3.5 (3.5-5.1) mEq/L Chloride 103 (98-107) mEq/L Carbon Dioxide 31 (21-32) mEq/L Anion Gap 11.5 (5-15) BUN 11 (7-18) mg/dL Creatinine 0.8 (0.55-1.02) mg/dL Est Cr Clr Drug Dosing 46.19 mL/min Estimated GFR (MDRD) > 60 (>60) mL/min BUN/Creatinine Ratio 13.8 L (14-18) Glucose 119 H (83-115) mg/dL POC Glucose (83-110) mg/dL Calcium 8.1 L (8.5-10.1) mg/dL Magnesium 1.8 (1.8-2.4) mg/dl Total Bilirubin 0.3 (0.2-1.0) mg/dL AST 57 H (15-37) U/L ALT 38 (14-59) U/L Alkaline Phosphatase 78 (46-116) U/L C-Reactive Protein 3.5 H* (<1.0) mg/dL Total Protein 5.8 L (6.4-8.2) g/dl Albumin 1.8 L (3.4-5.0) g/dl Globulin 4.0 gm/dL Albumin/Globulin Ratio 0.5 L (1-2) 10/04/20 Range/Units 06:39 WBC (3.98-10.04) K/mm3 RBC (3.98-5.22) M/mm3 Hgb (11.2-15.7) gm/dl Hct (34.1-44.9) % MCV (79.4-94.8) fl MCH (25.6-32.2) pg MCHC (32.2-35.5) g/dl RDW Std Deviation (36.4-46.3) fL Plt Count (182-369) K/mm3 MPV (9.4-12.3) fl Neut % (Auto) (34.0-71.1) % Lymph % (Auto) (19.3-51.7) % [place] % (Auto) (4.7-12.5) % Eos % (Auto) (0.7-5.8) Baso % (Auto) (0.1-1.2) % Neut # (Auto) (1.56-6.13) K/mm3 Lymph # (Auto) (1.18-3.74) K/mm3 [place] # (Auto) (0.24-0.36) K/mm3 Eos # (Auto) (0.04-0.36) K/mm3 Baso # (Auto) (0.01-0.08) K/mm3 Sodium (136-145) mEq/L Potassium (3.5-5.1) mEq/L Chloride (98-107) mEq/L Carbon Dioxide (21-32) mEq/L Anion Gap (5-15) BUN (7-18) mg/dL Creatinine (0.55-1.02) mg/dL Est Cr Clr Drug Dosing mL/min Estimated GFR (MDRD) (>60) mL/min BUN/Creatinine Ratio (14-18) Glucose (83-115) mg/dL POC Glucose 137 H (83-110) mg/dL Calcium (8.5-10.1) mg/dL Magnesium (1.8-2.4) mg/dl Total Bilirubin (0.2-1.0) mg/dL AST (15-37) U/L ALT (14-59) U/L Alkaline Phosphatase (46-116) U/L C-Reactive Protein (<1.0) mg/dL Total Protein (6.4-8.2) g/dl Albumin (3.4-5.0) g/dl Globulin gm/dL Albumin/Globulin Ratio (1-2) Anthony Results Last 24 Hours: Microbiology 09/30/20 15:15 Aerobic Blood Culture - Preliminary Blood - Venous - Lab Draw NO GROWTH AFTER 3 DAYS Anaerobic Blood Culture - Preliminary NO GROWTH AFTER 3 DAYS 09/30/20 15:05 Aerobic Blood Culture - Preliminary Blood - Venous NO GROWTH AFTER 3 DAYS Anaerobic Blood Culture - Preliminary NO GROWTH AFTER 3 DAYS Med Orders - Current: Current Medications Acetaminophen (Tylenol) 650 mg RECTAL Q6H PRN PRN Reason: Pain (mild 1-3) Albuterol/Ipratropium (Duoneb 3.0-0.5 Mg/3 Ml) 3 ml NEB Q4H PRN PRN Reason: Shortness Of Breath/wheezing Benzocaine/Menthol (Cepacol Sore Throat) 1 lozenge MUCMEM Q2HR PRN PRN Reason: Sore Throat Last Admin: 10/02/20 20:23 Dose: 1 lozenge Documented by: Brimonidine Tartrate (Alphagan 0.2% Ophth Soln) 0 ml EYEBOTH BID [facility] Last Admin: 10/04/20 09:42 Dose: 1 drop Documented by: Cholecalciferol (Vitamin D3) 10,000 unit PO DAILY [facility] Last Admin: 10/04/20 09:38 Dose: 10,000 unit Documented by: Docusate Sodium (Colace) 100 mg PO BID PRN PRN Reason: Constipation Enoxaparin Sodium (Lovenox) 40 mg SUBCUT DAILY [facility] Last Admin: 10/04/20 09:40 Dose: 40 mg Documented by: Famotidine (Pepcid) 20 mg PO BEDTIME [facility] Last Admin: 10/03/20 21:10 Dose: 20 mg Documented by: Hydralazine HCl (Apresoline) 10 mg IVPUSH Q4H PRN PRN Reason: Hypertension Promethazine HCl 12.5 mg/ (Sodium Chloride) 50.5 mls @ 100 mls/hr IV Q6H PRN PRN Reason: Nausea/Vomiting Ceftriaxone Sodium 2 gm/ (Sodium Chloride) 100 mls @ 200 mls/hr IV Q24H [facility] Last Admin: 10/03/20 21:13 Dose: 200 mls/hr Documented by: Insulin Human Lispro (Humalog) 0 unit SUBCUT QIDACANDBED [facility]; Protocol Last Admin: 10/04/20 07:06 Dose: Not Given Documented by: Magnesium Oxide (Magnesium Oxide) 400 mg PO BID [facility] Last Admin: 10/04/20 09:37 Dose: 400 mg Documented by: Oxycodone HCl (Oxycodone) 5 mg PO Q6H PRN PRN Reason: Pain (moderate 4-6) Last Admin: 10/04/20 05:25 Dose: 5 mg Documented by: Saccharomyces Boulardii (Florastor) 500 mg PO BID [facility] Last Admin: 10/04/20 09:38 Dose: 500 mg Documented by: Simvastatin (Zocor) 20 mg PO BEDTIME [facility] Last Admin: 10/03/20 21:11 Dose: 20 mg Documented by: Sodium Chloride (Saline Flush) 10 ml FLUSH ASDIRECTED PRN PRN Reason: Keep Vein Open Last Admin: 09/30/20 15:05 Dose: 10 ml Documented by: Discontinued Medications Acetaminophen (Tylenol) 650 mg PO NOW ONE Stop: 09/30/20 20:24 Last Admin: 09/30/20 20:33 Dose: 650 mg Documented by: Al Hydroxide/Mg Hydroxide (Mag-Al Plus) 30 ml PO ONETIME ONE Stop: 10/03/20 18:14 Last Admin: 10/03/20 18:21 Dose: 30 ml Documented by: Amitriptyline HCl (Elavil) 25 mg PO BEDTIME [facility] Last Admin: 10/01/20 21:11 Dose: 25 mg Documented by: Aspirin (Halfprin) 81 mg PO DAILY [facility] Azithromycin (Zithromax) 500 mg PO DAILY [facility] Stop: 10/04/20 09:01 Last Admin: 10/04/20 09:39 Dose: 500 mg Documented by: Diphenhydramine HCl (Benadryl) 50 mg IVPUSH ONETIME PRN PRN Reason: hypersensitivity reaction Enoxaparin Sodium (Lovenox) 60 mg SUBCUT DAILY [facility] Last Admin: 10/01/20 03:48 Dose: Not Given Documented by: Enoxaparin Sodium (Lovenox) 60 mg SUBCUT DAILY [facility] Last Admin: 10/01/20 00:58 Dose: 60 mg Documented by: Enoxaparin Sodium (Lovenox) 60 mg SUBCUT BEDTIME [facility] Epinephrine HCl (Adrenalin) 0.3 mg IM ONETIME PRN PRN Reason: hypersensitivity reaction Famotidine (Pepcid) 20 mg IVPUSH ONETIME PRN PRN Reason: hypersensitivity reaction Last Admin: 10/01/20 01:09 Dose: 20 mg Documented by: Famotidine (Pepcid) 20 mg PO BID [facility] Last Admin: 10/01/20 22:03 Dose: 20 mg Documented by: Heparin Sodium (Porcine) (Heparin Sodium) 5,000 units SUBCUT Q8H [facility] Last Admin: 10/01/20 03:48 Dose: Not Given Documented by: Hydrochlorothiazide (Hydrochlorothiazide) 25 mg PO BEDTIME [facility] Last Admin: 10/01/20 21:11 Dose: 25 mg Documented by: Magnesium Sulfate 2 gm/ Premix 50 mls @ 25 mls/hr IV Q1H [facility] Stop: 09/30/20 18:29 Last Admin: 09/30/20 20:43 Dose: Not Given Documented by: Non-Formulary Medication 1,200 mg/ Non-Formulary Medication 1,200 mg/ Sodium Chloride 250 mls @ 250 mls/hr IV ONETIME ONE Stop: 09/30/20 17:23 Last Admin: 09/30/20 17:06 Dose: 250 mls/hr Documented by: Sodium Chloride (Normal Saline) 1,000 mls @ 500 mls/hr IV ONETIME ONE Stop: 09/30/20 18:24 Last Admin: 09/30/20 16:41 Dose: 500 mls/hr Documented by: Sodium Chloride (Normal Saline) 1,000 mls @ 500 mls/hr IV ONETIME ONE Stop: 09/30/20 18:31 Last Admin: 09/30/20 18:20 Dose: 500 mls/hr Documented by: Sodium Chloride (Normal Saline) 1,000 mls @ 50 mls/hr IV ASDIRECTED [facility] Last Admin: 10/01/20 01:20 Dose: 50 mls/hr Documented by: Sodium Chloride (Normal Saline) 500 mls @ 999 mls/hr IV .BOLUS ONE Stop: 09/30/20 23:09 Last Admin: 09/30/20 22:47 Dose: 999 mls/hr Documented by: Ceftriaxone Sodium 1 gm/ (Sodium Chloride) 100 mls @ 200 mls/hr IV Q24H [facility] Last Admin: 09/30/20 22:55 Dose: 200 mls/hr Documented by: Norepinephrine Bitartrate 4 mg (/ Dextrose/Water) 250 mls @ 7.5 mls/hr IV TITRATE [facility]; Protocol Last Titration: 10/01/20 08:43 Dose: 0 mcg/min, 0 mls/hr Documented by: Magnesium Sulfate 4 gm/ Premix 50 mls @ 12.5 mls/hr IV ONETIME ONE Stop: 10/01/20 14:36 Last Admin: 10/01/20 10:58 Dose: 12.5 mls/hr Documented by: Lactated Ringer's (Ringers, Lactated) 1,000 mls @ 999 mls/hr IV .BOLUS ONE Stop: 10/02/20 01:25 Last Admin: 10/02/20 00:44 Dose: 999 mls/hr Documented by: Magnesium Sulfate 4 gm/ Premix 50 mls @ 12.5 mls/hr IV ONETIME ONE Stop: 10/03/20 19:29 Last Admin: 10/03/20 15:23 Dose: 12.5 mls/hr Documented by: Insulin Human Lispro (Humalog) 0 unit SUBCUT QIDACANDBED [facility]; Protocol Last Admin: 10/03/20 12:17 Dose: 4 unit Documented by: Magnesium Oxide (Magnesium Oxide) 800 mg PO ONETIME ONE Stop: 09/30/20 16:46 Last Admin: 09/30/20 17:18 Dose: 800 mg Documented by: Methylprednisolone Sodium Succinate (Solu-Medrol) 125 mg IVPUSH ONETIME PRN PRN Reason: hypersensitivity reaction Morphine Sulfate (Morphine) 2 mg IVPUSH Q4H PRN PRN Reason: Pain (severe 7-10) Stop: 10/01/20 21:41 Last Admin: 09/30/20 22:21 Dose: 2 mg Documented by: Ondansetron HCl (Zofran) 4 mg IVPUSH ONETIME ONE Stop: 09/30/20 19:55 Last Admin: 09/30/20 20:09 Dose: 4 mg Documented by: Potassium Chloride (Klor-Con M20) 40 meq PO ONETIME ONE Stop: 10/01/20 10:37 Last Admin: 10/01/20 10:58 Dose: 40 meq Documented by: Potassium Chloride (Klor-Con M20) 40 meq PO ONETIME ONE Stop: 10/02/20 10:35 Last Admin: 10/02/20 11:00 Dose: 40 meq Documented by: Sodium Chloride (Saline Flush) 30 ml FLUSH ASDIRECTED [facility] Last Admin: 09/30/20 18:15 Dose: 30 ml Documented by: Tramadol HCl (Ultram) 100 mg PO ONETIME ONE Stop: 09/30/20 20:03 Last Admin: 09/30/20 20:43 Dose: Not Given Documented by: - Exam Quality Assessment: No: Supplemental Oxygen General: Alert, Oriented, Cooperative, No Acute Distress HEENT: Pupils Equal, Pupils Reactive, EOMI, Mucous Membr. Moist/[place] Neck: Supple Lungs: Clear to Auscultation, Normal Respiratory Effort Cardiovascular: Regular Rate, Regular Rhythm GI/Abdominal Exam: Normal Bowel Sounds, Soft, Non-Tender, No Organomegaly, No Distention, No Abnormal Bruit, No Mass (Female) Exam: Deferred Back Exam: Normal Inspection, Decreased Range of Motion Extremities: Normal Inspection, Non-Tender, No Pedal Edema, Normal Capillary Refill Peripheral Pulses: 2+: Dorsalis Pedis (L), Dorsalis Pedis (R) Skin: Warm, Dry, Intact Neurological: No New Focal Deficit Psy/Mental Status: Alert, Normal Affect, Normal Mood Sepsis Event Note - Evaluation Sepsis Screening Result: No Definite Risk - Focused Exam Vital Signs: Vital Signs Temp Pulse Resp BP Pulse Ox Pulse Ox Pulse Ox 10/04/20 09:34 36.6 C 83 20 124/68 94 L 10/04/20 08:51 93 L 10/04/20 05:55 95 10/04/20 05:30 36.8 C 89 14 140/66 94 L 10/04/20 00:40 93 L 10/04/20 00:30 90 L 90 L 10/04/20 00:27 88 L 10/04/20 00:25 84 L 10/04/20 00:04 37.1 C 81 20 146/69 H 90 L - Problem List Review Problem List Initiated/Reviewed/Updated: Yes - Plan Plan:: Assessment and plan: 09/30/2020 1. Acute on chronic hypoxic respiratory failure ABG - PCO2 33, PO2 56, SO2 86.1% pulse ox O2 therapy. Keep SpO2 > 92 2. Early pneumonia or clinical pneumonia, Covid 19? or CAP? 3. Covid 19 was positive CXR - No acute change Blood culture Sputum culture MRSA screen Ferritin 141, CRP 10.3, D-dimer 2.08 Selvin COVID-19 monoclonal antibody was given I will not start her on antibiotics at this moment I would not like to start her on steroid at the early stage. Lovenox 60mg daily Home aspirin is on hold. Inhalers CRP and D-dimer daily 4. RICK? creatinine 1.2 on 08/12/2020 Avoid nephrotoxic meds Repeat renal function in am IVF 5. HTN Continue HCTZ 25mg daily Lisinopril 20mg daily is on hold Hydralazine prn 6. DM type 2 Metformin 500mg daily is on hold diabetic diet Insulin ss 7. GI and DVT prophylaxis: famotidine and lovenox 10/01/2020 1. Acute hypoxic respiratory failure secondary to COVID-19 Oxygen requirement significantly improved. On 1 L FiO2 via nasal cannula with oxygen saturations in the upper 90s. We will continue to wean off throughout the day. 2. Community-acquired pneumonia Repeat chest x-ray consistent with right midlung infiltrate or developing pneumonia WBC increased from 5.7-13.7. Blood culture Sputum culture MRSA screen On admission ferritin 141, CRP 10.3, D-dimer 2.08 Selvin COVID-19 monoclonal antibody was given Increase Rocephin to 2 g daily Start azithromycin 500 mg daily for 3 days Hold off on steroids at this time since hypoxemia is improving Lovenox 40mg daily Home aspirin is on hold. Inhalers CRP and D-dimer daily 3. Hypokalemia/hypomagnesemia Potassium 3.3, magnesium 1.6 Supplement both and repeat tomorrow 4. RICK: creatinine 1.2 on 08/12/2020 -resolved Renal function improved with creatinine down from 1.0 to 1.3 Avoid nephrotoxic meds Repeat renal function in am Stop IVF 5. Elevated troponintroponin increased from 0.078-0.137. 6. Hypoalbuminemia at 2.1, down from 2.7 on admission. Dietary consult. 7. Low vitamin D14.9, start vitamin D3 10,000 units daily 8. HTN Continue HCTZ 25mg daily Lisinopril 20mg daily is on hold Follow electrolytes Hydralazine prn 9. DM type 2 Metformin 500mg daily is on hold diabetic diet Insulin ss 10. GI and DVT prophylaxis: famotidine and lovenox October 02, 2020 84-year-old with COVID-19 and acute hypoxia on day 2 of hospitalization. Patient is still on only 1 L of O2 via nasal cannula. She did receive 25 mg of hydrochlorothiazide prior to bed last night and had another several episodes in the middle the night of low blood pressures requiring a fluid bolus. This is likely secondary to both the COVID-19 and medication. Hydrochlorothiazide will be held. She did have a 3 pound weight gain and 2 g drop in her hemoglobin. This is likely delusional. Also hypokalemia secondary to the above. Potassium today was 3.3. Blood sugars continue to be well controlled on sliding scale insulin. Acute renal injury has resolved with a creatinine of 0.9 and an estimated GFR greater than 60. Magnesium was replaced yesterday. Continue to treat pneumonia as community-acquired pneumonia with Rocephin and start azithromycin. Length of stay 2-3 more days. October 03, 2020 84-year-old female with COVID-19 and hypoxemia on 0.5 L per nasal cannula today. Patient is doing well, but did have an episode of sinus tachycardia when working with physical therapy. This did resolve with a little rest. She did not require more oxygen at that time. She did not have any more episodes of hypotension. She continues azithromycin and ceftriaxone for her community- acquired pneumonia. She has been afebrile and her white count is 4.9. Acute kidney injury has resolved and her creatinine is 0.8 at this time. She is currently off all blood pressure medications. Blood sugars have been stable. She should be ready for discharge in the next couple of days. I prefer to get h er on room air or at least greater than 5 days of IV antibiotics. 10/04/2020 Continues to do well. She is now on RA satting adequately. She gets tachycardia with activities and exertion but comes back down to sinus rhythm with rest. Will continue current treatment. Encourage to use IS and FV as directed. Routine AM labs. Updated her daughter about patient clinical progress. LOS > 96 hrs as she needs more time with treatment.
[2020-10-04] MEDS ORDERED: Metoprolol Tartrate 5 MG/5 ML SDV IVPUSH PRN (12:39)
[2020-10-04] MEDS: cefTRIAXone 2 GM in Sodium Chloride 0.9% 100 ML IV SCH (21:52)
[2020-10-04] MEDS: Famotidine 20 MG Tab PO SCH (21:55)
[2020-10-04] MEDS: Simvastatin 20 MG Tab PO SCH (21:55)
[2020-10-05] MEDS: Enoxaparin 40 MG/0.4 ML Syringe SUBCUT SCH (09:03)
[2020-10-05] MEDS: Saccharomyces Boulardii (Probiotic) 250 MG Cap PO SCH ×2 (09:04→20:28)
[2020-10-05] MEDS: Brimonidine 0.2% Ophth Soln 5 ML Bottle EYEBOTH SCH ×2 (09:04→20:27)
[2020-10-05] MEDS: Cholecalciferol (Vitamin D3) 5,000 UNIT Cap PO SCH (09:05)
[2020-10-05] MEDS: Magnesium Oxide 400 MG Tab PO SCH ×2 (09:07→20:30)
[2020-10-05] MEDS: oxyCODONE 5 MG Tab PO PRN ×2 (13:08→20:29)
--- NOTE | 2020-10-05 13:44 | PCM.PN ---
- General Info Date of Service: 10/05/20 Admission Dx/Problem (Free Text): Admission Diagnosis/Problem Admission Diagnosis/Problem Respiratory failure with hypoxia Subjective Update: No overnight or acute issues. She remains on RA satting very well. No issues with tachycardia. She complaints of not having a good appetite but she is eating fine. He K is slightly low at 3.4. Functional Status: Reports: Pain Controlled, Tolerating Diet, Ambulating, Urinating. Denies: New Symptoms - Review of Systems General: Denies: Fever, Chills Pulmonary: Denies: Shortness of Breath Cardiovascular: Denies: Chest Pain Gastrointestinal: Reports: Decreased Appetite. Denies: Abdominal Pain, Nausea, Vomiting Genitourinary: Denies: Dysuria Musculoskeletal: Reports: Joint Pain (chronic on multiple joints) Skin: Denies: Bruising, Pruritis, Rash Neurological: Reports: Gait Disturbance. Denies: Weakness Psychiatric: Denies: Confusion, Anxiety - Patient Data Vitals - Most Recent: Last Vital Signs Temp 36.7 C 10/05/20 12:00 Pulse 102 H 10/05/20 12:00 Resp 24 H 10/05/20 12:00 BP 121/66 10/05/20 12:00 Pulse Ox 98 10/05/20 12:00 Weight - Most Recent: 67.54 kg I&O - Last 24 Hours: Intake & Output 10/04/20 10/05/20 10/05/20 22:59 06:59 14:59 Intake Total 1340 600 Output Total 825 Balance 1340 -225 Lab Results Last 24 Hours: Laboratory Results - last 24 hr 10/04/20 10/04/20 10/05/20 Range/Units 17:20 20:53 06:04 WBC 7.81 (3.98-10.04) K/mm3 RBC 3.54 L (3.98-5.22) M/mm3 Hgb 9.6 L (11.2-15.7) gm/dl Hct 30.8 L (34.1-44.9) % MCV 87.0 (79.4-94.8) fl MCH 27.1 (25.6-32.2) pg MCHC 31.2 L (32.2-35.5) g/dl RDW Std Deviation 45.7 (36.4-46.3) fL Plt Count 404 H (182-369) K/mm3 MPV 9.3 L (9.4-12.3) fl Neut % (Auto) 74.0 H (34.0-71.1) % Lymph % (Auto) 14.1 L (19.3-51.7) % Payne % (Auto) 10.5 (4.7-12.5) % Eos % (Auto) 0.5 L (0.7-5.8) Baso % (Auto) 0.3 (0.1-1.2) % Neut # (Auto) 5.78 (1.56-6.13) K/mm3 Lymph # (Auto) 1.10 L (1.18-3.74) K/mm3 Payne # (Auto) 0.82 H (0.24-0.36) K/mm3 Eos # (Auto) 0.04 (0.04-0.36) K/mm3 Baso # (Auto) 0.02 (0.01-0.08) K/mm3 Sodium (136-145) mEq/L Potassium (3.5-5.1) mEq/L Chloride (98-107) mEq/L Carbon Dioxide (21-32) mEq/L Anion Gap (5-15) BUN (7-18) mg/dL Creatinine (0.55-1.02) mg/dL Est Cr Clr Drug Dosing mL/min Estimated GFR (MDRD) (>60) mL/min BUN/Creatinine Ratio (14-18) Glucose (83-115) mg/dL POC Glucose 91 294 H (83-110) mg/dL Calcium (8.5-10.1) mg/dL Total Bilirubin (0.2-1.0) mg/dL AST (15-37) U/L ALT (14-59) U/L Alkaline Phosphatase (46-116) U/L C-Reactive Protein (<1.0) mg/dL Total Protein (6.4-8.2) g/dl Albumin (3.4-5.0) g/dl Globulin gm/dL Albumin/Globulin Ratio (1-2) Free T4 (0.76-1.46) ng/dL TSH 3rd Generation (0.358-3.74) uIU/mL 10/05/20 10/05/20 10/05/20 Range/Units 06:04 06:04 06:44 WBC (3.98-10.04) K/mm3 RBC (3.98-5.22) M/mm3 Hgb (11.2-15.7) gm/dl Hct (34.1-44.9) % MCV (79.4-94.8) fl MCH (25.6-32.2) pg MCHC (32.2-35.5) g/dl RDW Std Deviation (36.4-46.3) fL Plt Count (182-369) K/mm3 MPV (9.4-12.3) fl Neut % (Auto) (34.0-71.1) % Lymph % (Auto) (19.3-51.7) % Payne % (Auto) (4.7-12.5) % Eos % (Auto) (0.7-5.8) Baso % (Auto) (0.1-1.2) % Neut # (Auto) (1.56-6.13) K/mm3 Lymph # (Auto) (1.18-3.74) K/mm3 Payne # (Auto) (0.24-0.36) K/mm3 Eos # (Auto) (0.04-0.36) K/mm3 Baso # (Auto) (0.01-0.08) K/mm3 Sodium 143 (136-145) mEq/L Potassium 3.4 L (3.5-5.1) mEq/L Chloride 105 (98-107) mEq/L Carbon Dioxide 30 (21-32) mEq/L Anion Gap 11.4 (5-15) BUN 10 (7-18) mg/dL Creatinine 0.7 (0.55-1.02) mg/dL Est Cr Clr Drug Dosing 52.79 mL/min Estimated GFR (MDRD) > 60 (>60) mL/min BUN/Creatinine Ratio 14.3 (14-18) Glucose 105 (83-115) mg/dL POC Glucose 127 H (83-110) mg/dL Calcium 8.3 L (8.5-10.1) mg/dL Total Bilirubin 0.3 (0.2-1.0) mg/dL AST 61 H (15-37) U/L ALT 46 (14-59) U/L Alkaline Phosphatase 83 (46-116) U/L C-Reactive Protein 4.2 H* (<1.0) mg/dL Total Protein 6.1 L (6.4-8.2) g/dl Albumin 1.9 L (3.4-5.0) g/dl Globulin 4.2 gm/dL Albumin/Globulin Ratio 0.5 L (1-2) Free T4 1.43 (0.76-1.46) ng/dL TSH 3rd Generation 1.441 (0.358-3.74) uIU/mL Anthony Results Last 24 Hours: Microbiology 09/30/20 15:15 Aerobic Blood Culture - Preliminary Blood - Venous - Lab Draw NO GROWTH AFTER 4 DAYS Anaerobic Blood Culture - Preliminary NO GROWTH AFTER 4 DAYS 09/30/20 15:05 Aerobic Blood Culture - Preliminary Blood - Venous NO GROWTH AFTER 4 DAYS Anaerobic Blood Culture - Preliminary NO GROWTH AFTER 4 DAYS Med Orders - Current: Current Medications Acetaminophen (Tylenol) 650 mg RECTAL Q6H PRN PRN Reason: Pain (mild 1-3) Albuterol/Ipratropium (Duoneb 3.0-0.5 Mg/3 Ml) 3 ml NEB Q4H PRN PRN Reason: Shortness Of Breath/wheezing Benzocaine/Menthol (Cepacol Sore Throat) 1 lozenge MUCMEM Q2HR PRN PRN Reason: Sore Throat Last Admin: 10/02/20 20:23 Dose: 1 lozenge Documented by: Brimonidine Tartrate (Alphagan 0.2% Ophth Soln) 0 ml EYEBOTH BID [facility] Last Admin: 10/05/20 09:04 Dose: 1 drop Documented by: Cholecalciferol (Vitamin D3) 10,000 unit PO DAILY [facility] Last Admin: 10/05/20 09:05 Dose: 10,000 unit Documented by: Docusate Sodium (Colace) 100 mg PO BID PRN PRN Reason: Constipation Enoxaparin Sodium (Lovenox) 40 mg SUBCUT DAILY [facility] Last Admin: 10/05/20 09:03 Dose: 40 mg Documented by: Famotidine (Pepcid) 20 mg PO BEDTIME [facility] Last Admin: 10/04/20 21:55 Dose: 20 mg Documented by: Hydralazine HCl (Apresoline) 10 mg IVPUSH Q4H PRN PRN Reason: Hypertension Promethazine HCl 12.5 mg/ (Sodium Chloride) 50.5 mls @ 100 mls/hr IV Q6H PRN PRN Reason: Nausea/Vomiting Ceftriaxone Sodium 2 gm/ (Sodium Chloride) 100 mls @ 200 mls/hr IV Q24H [facility] Last Admin: 10/04/20 21:52 Dose: 200 mls/hr Documented by: Insulin Human Lispro (Humalog) 0 unit SUBCUT QIDACANDBED [facility]; Protocol Last Admin: 10/05/20 06:56 Dose: Not Given Documented by: Magnesium Oxide (Magnesium Oxide) 400 mg PO BID [facility] Last Admin: 10/05/20 09:07 Dose: 400 mg Documented by: Metoprolol Tartrate (Lopressor) 5 mg IVPUSH Q6H PRN PRN Reason: Tachycardia Oxycodone HCl (Oxycodone) 5 mg PO Q6H PRN PRN Reason: Pain (moderate 4-6) Last Admin: 10/05/20 13:08 Dose: 5 mg Documented by: Saccharomyces Boulardii (Florastor) 500 mg PO BID [facility] Last Admin: 10/05/20 09:04 Dose: 500 mg Documented by: Simvastatin (Zocor) 20 mg PO BEDTIME [facility] Last Admin: 10/04/20 21:55 Dose: 20 mg Documented by: Sodium Chloride (Saline Flush) 10 ml FLUSH ASDIRECTED PRN PRN Reason: Keep Vein Open Last Admin: 09/30/20 15:05 Dose: 10 ml Documented by: Discontinued Medications Acetaminophen (Tylenol) 650 mg PO NOW ONE Stop: 09/30/20 20:24 Last Admin: 09/30/20 20:33 Dose: 650 mg Documented by: Al Hydroxide/Mg Hydroxide (Mag-Al Plus) 30 ml PO ONETIME ONE Stop: 10/03/20 18:14 Last Admin: 10/03/20 18:21 Dose: 30 ml Documented by: Amitriptyline HCl (Elavil) 25 mg PO BEDTIME [facility] Last Admin: 10/01/20 21:11 Dose: 25 mg Documented by: Aspirin (Halfprin) 81 mg PO DAILY [facility] Azithromycin (Zithromax) 500 mg PO DAILY [facility] Stop: 10/04/20 09:01 Last Admin: 10/04/20 09:39 Dose: 500 mg Documented by: Diphenhydramine HCl (Benadryl) 50 mg IVPUSH ONETIME PRN PRN Reason: hypersensitivity reaction Enoxaparin Sodium (Lovenox) 60 mg SUBCUT DAILY [facility] Last Admin: 10/01/20 03:48 Dose: Not Given Documented by: Enoxaparin Sodium (Lovenox) 60 mg SUBCUT DAILY [facility] Last Admin: 10/01/20 00:58 Dose: 60 mg Documented by: Enoxaparin Sodium (Lovenox) 60 mg SUBCUT BEDTIME [facility] Epinephrine HCl (Adrenalin) 0.3 mg IM ONETIME PRN PRN Reason: hypersensitivity reaction Famotidine (Pepcid) 20 mg IVPUSH ONETIME PRN PRN Reason: hypersensitivity reaction Last Admin: 10/01/20 01:09 Dose: 20 mg Documented by: Famotidine (Pepcid) 20 mg PO BID [facility] Last Admin: 10/01/20 22:03 Dose: 20 mg Documented by: Heparin Sodium (Porcine) (Heparin Sodium) 5,000 units SUBCUT Q8H [facility] Last Admin: 10/01/20 03:48 Dose: Not Given Documented by: Hydrochlorothiazide (Hydrochlorothiazide) 25 mg PO BEDTIME [facility] Last Admin: 10/01/20 21:11 Dose: 25 mg Documented by: Magnesium Sulfate 2 gm/ Premix 50 mls @ 25 mls/hr IV Q1H [facility] Stop: 09/30/20 18:29 Last Admin: 09/30/20 20:43 Dose: Not Given Documented by: Non-Formulary Medication 1,200 mg/ Non-Formulary Medication 1,200 mg/ Sodium Chloride 250 mls @ 250 mls/hr IV ONETIME ONE Stop: 09/30/20 17:23 Last Admin: 09/30/20 17:06 Dose: 250 mls/hr Documented by: Sodium Chloride (Normal Saline) 1,000 mls @ 500 mls/hr IV ONETIME ONE Stop: 09/30/20 18:24 Last Admin: 09/30/20 16:41 Dose: 500 mls/hr Documented by: Sodium Chloride (Normal Saline) 1,000 mls @ 500 mls/hr IV ONETIME ONE Stop: 09/30/20 18:31 Last Admin: 09/30/20 18:20 Dose: 500 mls/hr Documented by: Sodium Chloride (Normal Saline) 1,000 mls @ 50 mls/hr IV ASDIRECTED [facility] Last Admin: 10/01/20 01:20 Dose: 50 mls/hr Documented by: Sodium Chloride (Normal Saline) 500 mls @ 999 mls/hr IV .BOLUS ONE Stop: 09/30/20 23:09 Last Admin: 09/30/20 22:47 Dose: 999 mls/hr Documented by: Ceftriaxone Sodium 1 gm/ (Sodium Chloride) 100 mls @ 200 mls/hr IV Q24H [facility] Last Admin: 09/30/20 22:55 Dose: 200 mls/hr Documented by: Norepinephrine Bitartrate 4 mg (/ Dextrose/Water) 250 mls @ 7.5 mls/hr IV TITRATE [facility]; Protocol Last Titration: 10/01/20 08:43 Dose: 0 mcg/min, 0 mls/hr Documented by: Magnesium Sulfate 4 gm/ Premix 50 mls @ 12.5 mls/hr IV ONETIME ONE Stop: 10/01/20 14:36 Last Admin: 10/01/20 10:58 Dose: 12.5 mls/hr Documented by: Lactated Ringer's (Ringers, Lactated) 1,000 mls @ 999 mls/hr IV .BOLUS ONE Stop: 10/02/20 01:25 Last Admin: 10/02/20 00:44 Dose: 999 mls/hr Documented by: Magnesium Sulfate 4 gm/ Premix 50 mls @ 12.5 mls/hr IV ONETIME ONE Stop: 10/03/20 19:29 Last Admin: 10/03/20 15:23 Dose: 12.5 mls/hr Documented by: Insulin Human Lispro (Humalog) 0 unit SUBCUT QIDACANDBED [facility]; Protocol Last Admin: 10/03/20 12:17 Dose: 4 unit Documented by: Magnesium Oxide (Magnesium Oxide) 800 mg PO ONETIME ONE Stop: 09/30/20 16:46 Last Admin: 09/30/20 17:18 Dose: 800 mg Documented by: Methylprednisolone Sodium Succinate (Solu-Medrol) 125 mg IVPUSH ONETIME PRN PRN Reason: hypersensitivity reaction Morphine Sulfate (Morphine) 2 mg IVPUSH Q4H PRN PRN Reason: Pain (severe 7-10) Stop: 10/01/20 21:41 Last Admin: 09/30/20 22:21 Dose: 2 mg Documented by: Ondansetron HCl (Zofran) 4 mg IVPUSH ONETIME ONE Stop: 09/30/20 19:55 Last Admin: 09/30/20 20:09 Dose: 4 mg Documented by: Potassium Chloride (Klor-Con M20) 40 meq PO ONETIME ONE Stop: 10/01/20 10:37 Last Admin: 10/01/20 10:58 Dose: 40 meq Documented by: Potassium Chloride (Klor-Con M20) 40 meq PO ONETIME ONE Stop: 10/02/20 10:35 Last Admin: 10/02/20 11:00 Dose: 40 meq Documented by: Sodium Chloride (Saline Flush) 30 ml FLUSH ASDIRECTED [facility] Last Admin: 09/30/20 18:15 Dose: 30 ml Documented by: Tramadol HCl (Ultram) 100 mg PO ONETIME ONE Stop: 09/30/20 20:03 Last Admin: 09/30/20 20:43 Dose: Not Given Documented by: - Exam Quality Assessment: No: Supplemental Oxygen General: Alert, Oriented, Cooperative, No Acute Distress HEENT: Pupils Equal, Pupils Reactive, EOMI, Mucous Membr. Moist/[place] Neck: Supple Lungs: Clear to Auscultation, Normal Respiratory Effort Cardiovascular: Regular Rate, Regular Rhythm GI/Abdominal Exam: Normal Bowel Sounds, Soft, Non-Tender, No Organomegaly, No Distention, No Abnormal Bruit (Female) Exam: Deferred Back Exam: Normal Inspection, Decreased Range of Motion Extremities: Normal Inspection, Normal Range of Motion, Non-Tender, No Pedal Edema, Normal Capillary Refill Peripheral Pulses: 2+: Dorsalis Pedis (L), Dorsalis Pedis (R) Skin: Warm, Dry, Intact Neurological: No New Focal Deficit. No: Normal Gait Psy/Mental Status: Alert, Normal Affect, Normal Mood Sepsis Event Note - Evaluation Sepsis Screening Result: No Definite Risk - Focused Exam Vital Signs: Vital Signs Temp Pulse Resp BP Pulse Ox Pulse Ox 10/05/20 12:00 36.7 C 102 H 24 H 121/66 98 10/05/20 09:19 99 10/05/20 08:04 36.7 C 91 24 H 150/83 H 99 10/05/20 05:44 36.7 C 89 18 139/64 98 10/05/20 02:35 93 L 10/05/20 02:30 88 L 10/05/20 02:20 83 L - Problem List Review Problem List Initiated/Reviewed/Updated: Yes - My Orders Last 24 Hours: My Active Orders 10/04/20 20:23 Communication Order [RC] 10/05/20 13:31 GLUCOSE RANDOM [CHEM] Stat - Plan Plan:: Assessment and plan: 09/30/2020 1. Acute on chronic hypoxic respiratory failure ABG - PCO2 33, PO2 56, SO2 86.1% pulse ox O2 therapy. Keep SpO2 > 92 2. Early pneumonia or clinical pneumonia, Covid 19? or CAP? 3. Covid 19 was positive CXR - No acute change Blood culture Sputum culture MRSA screen Ferritin 141, CRP 10.3, D-dimer 2.08 Matthew's COVID-19 monoclonal antibody was given I will not start her on antibiotics at this moment I would not like to start her on steroid at the early stage. Lovenox 60mg daily Home aspirin is on hold. Inhalers CRP and D-dimer daily 4. RICK? creatinine 1.2 on 08/12/2020 Avoid nephrotoxic meds Repeat renal function in am IVF 5. HTN Continue HCTZ 25mg daily Lisinopril 20mg daily is on hold Hydralazine prn 6. DM type 2 Metformin 500mg daily is on hold diabetic diet Insulin ss 7. GI and DVT prophylaxis: famotidine and lovenox 10/01/2020 1. Acute hypoxic respiratory failure secondary to COVID-19 Oxygen requirement significantly improved. On 1 L FiO2 via nasal cannula with oxygen saturations in the upper 90s. We will continue to wean off throughout the day. 2. Community-acquired pneumonia Repeat chest x-ray consistent with right midlung infiltrate or developing pneumonia WBC increased from 5.7-13.7. Blood culture Sputum culture MRSA screen On admission ferritin 141, CRP 10.3, D-dimer 2.08 Matthew's COVID-19 monoclonal antibody was given Increase Rocephin to 2 g daily Start azithromycin 500 mg daily for 3 days Hold off on steroids at this time since hypoxemia is improving Lovenox 40mg daily Home aspirin is on hold. Inhalers CRP and D-dimer daily 3. Hypokalemia/hypomagnesemia Potassium 3.3, magnesium 1.6 Supplement both and repeat tomorrow 4. RICK: creatinine 1.2 on 08/12/2020 -resolved Renal function improved with creatinine down from 1.0 to 1.3 Avoid nephrotoxic meds Repeat renal function in am Stop IVF 5. Elevated troponintroponin increased from 0.078-0.137. 6. Hypoalbuminemia at 2.1, down from 2.7 on admission. Dietary consult. 7. Low vitamin D14.9, start vitamin D3 10,000 units daily 8. HTN Continue HCTZ 25mg daily Lisinopril 20mg daily is on hold Follow electrolytes Hydralazine prn 9. DM type 2 Metformin 500mg daily is on hold diabetic diet Insulin ss 10. GI and DVT prophylaxis: famotidine and lovenox October 02, 2020 84-year-old with COVID-19 and acute hypoxia on day 2 of hospitalization. Patient is still on only 1 L of O2 via nasal cannula. She did receive 25 mg of hydrochlorothiazide prior to bed last night and had another several episodes in the middle the night of low blood pressures requiring a fluid bolus. This is likely secondary to both the COVID-19 and medication. Hydrochlorothiazide will be held. She did have a 3 pound weight gain and 2 g drop in her hemoglobin. This is likely delusional. Also hypokalemia secondary to the above. Potassium today was 3.3. Blood sugars continue to be well controlled on sliding scale insulin. Acute renal injury has resolved with a creatinine of 0.9 and an estimated GFR greater than 60. Magnesium was replaced yesterday. Continue to treat pneumonia as community-acquired pneumonia with Rocephin and start azithromycin. Length of stay 2-3 more days. October 03, 2020 84-year-old female with COVID-19 and hypoxemia on 0.5 L per nasal cannula today. Patient is doing well, but did have an episode of sinus tachycardia when working with physical therapy. This did resolve with a little rest. She did not require more oxygen at that time. She did not have any more episodes of hypotension. She continues azithromycin and ceftriaxone for her community- acquired pneumonia. She has been afebrile and her white count is 4.9. Acute kidney injury has resolved and her creatinine is 0.8 at this time. She is currently off all blood pressure medications. Blood sugars have been stable. She should be ready for discharge in the next couple of days. I prefer to get her on room air or at least greater than 5 days of IV antibiotics. 10/04/2020 Continues to do well. She is now on RA satting adequately. She gets tachycardia with activities and exertion but comes back down to sinus rhythm with rest. Will continue current treatment. Encourage to use IS and FV as directed. Routine AM labs. Updated her daughter about patient clinical progress. LOS > 96 hrs as she needs more time with treatment. 10/05/2020 She looks relatively well. She remains on RA satting adequately. No reports of tachycardia with exertion. Will continue current treatment. Encourage to use IS and FV as directed. Routine AM labs. Replete low electrolytes as needed. Needs re-eval by PT/OT tomorrow. She remains weak and requires some assistance to get up and ambulate. LOS > 96 hrs as she needs more time with treatment.
[2020-10-05] MEDS: cefTRIAXone 2 GM in Sodium Chloride 0.9% 100 ML IV SCH (20:27)
[2020-10-05] MEDS: Simvastatin 20 MG Tab PO SCH (20:29)
[2020-10-05] MEDS: Famotidine 20 MG Tab PO SCH (20:30)
[2020-10-06] MEDS: oxyCODONE 5 MG Tab PO PRN ×3 (06:39→21:52)
[2020-10-06] MEDS: Brimonidine 0.2% Ophth Soln 5 ML Bottle EYEBOTH SCH ×2 (09:52→21:52)
[2020-10-06] MEDS: Saccharomyces Boulardii (Probiotic) 250 MG Cap PO SCH ×2 (09:52→21:51)
[2020-10-06] MEDS: Magnesium Oxide 400 MG Tab PO SCH ×2 (09:53→21:51)
[2020-10-06] MEDS: Enoxaparin 40 MG/0.4 ML Syringe SUBCUT SCH (09:53)
[2020-10-06] MEDS: Cholecalciferol (Vitamin D3) 5,000 UNIT Cap PO SCH (09:53)
--- NOTE | 2020-10-06 10:42 | PCM.PN ---
- General Info Date of Service: 10/06/20 Admission Dx/Problem (Free Text): Admission Diagnosis/Problem Admission Diagnosis/Problem Respiratory failure with hypoxia Subjective Update: In to see Jaimee. She is sitting on the edge of the bed getting ready to get up to work with therapies. She reports she did not sleep well and therefore is quite tired today. She is hoping to discharge today or tomorrow. She has had low saturations overnight and therefore an overnight pulse oximeter has been ordered to see if she needs home oxygen when sleeping. Hopeful for discharge tomorrow. Functional Status: Reports: Pain Controlled, Tolerating Diet, Ambulating, Urinating. Denies: New Symptoms - Review of Systems General: Reports: Weakness, Fatigue (did not sleep well last night ). Denies: Fever, Malaise, Chills HEENT: Reports: No Symptoms. Denies: Headaches, Sore Throat Pulmonary: Reports: No Symptoms. Denies: Shortness of Breath, Cough, Sputum, Wheezing Cardiovascular: Reports: No Symptoms. Denies: Chest Pain, Dyspnea on Exertion, Edema, Lightheadedness Gastrointestinal: Reports: Diarrhea. Denies: Abdominal Pain, Constipation, Nausea, Vomiting Genitourinary: Reports: No Symptoms. Denies: Pain Musculoskeletal: Reports: Joint Pain (bilateral knees - chronic ) Skin: Reports: No Symptoms Neurological: Reports: Pre-Existing Deficit (utilized walker before hospitalization ), Difficulty Walking, Weakness. Denies: Confusion, Gait Disturbance Psychiatric: Reports: No Symptoms - Patient Data Vitals - Most Recent: Last Vital Signs Temp 98.0 F 10/06/20 09:00 Pulse 156 H 10/06/20 09:00 Resp 20 10/06/20 09:00 BP 110/73 10/06/20 09:00 Pulse Ox 92 L 10/06/20 09:30 Weight - Most Recent: 149 lb 3.2 oz I&O - Last 24 Hours: Intake & Output 10/05/20 10/06/20 10/06/20 22:59 06:59 14:59 Intake Total 1200 400 Output Total 100 1050 Balance 1100 -650 Lab Results Last 24 Hours: Laboratory Results - last 24 hr 10/05/20 10/05/20 10/05/20 Range/Units 06:44 13:44 17:15 Glucose 326 H (83-115) mg/dL POC Glucose 127 H 134 H (83-110) mg/dL 10/05/20 Range/Units 22:01 Glucose (83-115) mg/dL POC Glucose 180 H (83-110) mg/dL Anthony Results Last 24 Hours: Microbiology 09/30/20 15:15 Aerobic Blood Culture - Preliminary Blood - Venous - Lab Draw NO GROWTH AFTER 5 DAYS Anaerobic Blood Culture - Preliminary NO GROWTH AFTER 5 DAYS 09/30/20 15:05 Aerobic Blood Culture - Preliminary Blood - Venous NO GROWTH AFTER 5 DAYS Anaerobic Blood Culture - Preliminary NO GROWTH AFTER 5 DAYS Med Orders - Current: Current Medications Acetaminophen (Tylenol) 650 mg RECTAL Q6H PRN PRN Reason: Pain (mild 1-3) Albuterol/Ipratropium (Duoneb 3.0-0.5 Mg/3 Ml) 3 ml NEB Q4H PRN PRN Reason: Shortness Of Breath/wheezing Benzocaine/Menthol (Cepacol Sore Throat) 1 lozenge MUCMEM Q2HR PRN PRN Reason: Sore Throat Last Admin: 10/02/20 20:23 Dose: 1 lozenge Documented by: Brimonidine Tartrate (Alphagan 0.2% Ophth Soln) 0 ml EYEBOTH BID [facility] Last Admin: 10/06/20 09:52 Dose: 1 drop Documented by: Cholecalciferol (Vitamin D3) 10,000 unit PO DAILY [facility] Last Admin: 10/06/20 09:53 Dose: 10,000 unit Documented by: Docusate Sodium (Colace) 100 mg PO BID PRN PRN Reason: Constipation Enoxaparin Sodium (Lovenox) 40 mg SUBCUT DAILY [facility] Last Admin: 10/06/20 09:53 Dose: 40 mg Documented by: Famotidine (Pepcid) 20 mg PO BEDTIME [facility] Last Admin: 10/05/20 20:30 Dose: 20 mg Documented by: Hydralazine HCl (Apresoline) 10 mg IVPUSH Q4H PRN PRN Reason: Hypertension Promethazine HCl 12.5 mg/ (Sodium Chloride) 50.5 mls @ 100 mls/hr IV Q6H PRN PRN Reason: Nausea/Vomiting Ceftriaxone Sodium 2 gm/ (Sodium Chloride) 100 mls @ 200 mls/hr IV Q24H [facility] Last Admin: 10/05/20 20:27 Dose: 200 mls/hr Documented by: Insulin Human Lispro (Humalog) 0 unit SUBCUT QIDACANDBED [facility]; Protocol Last Admin: 10/06/20 06:38 Dose: Not Given Documented by: Magnesium Oxide (Magnesium Oxide) 400 mg PO BID [facility] Last Admin: 10/06/20 09:53 Dose: 400 mg Documented by: Metoprolol Tartrate (Lopressor) 5 mg IVPUSH Q6H PRN PRN Reason: Tachycardia Oxycodone HCl (Oxycodone) 5 mg PO Q6H PRN PRN Reason: Pain (moderate 4-6) Last Admin: 10/06/20 06:39 Dose: 5 mg Documented by: Saccharomyces Boulardii (Florastor) 500 mg PO BID [facility] Last Admin: 10/06/20 09:52 Dose: 500 mg Documented by: Simvastatin (Zocor) 20 mg PO BEDTIME [facility] Last Admin: 10/05/20 20:29 Dose: 20 mg Documented by: Sodium Chloride (Saline Flush) 10 ml FLUSH ASDIRECTED PRN PRN Reason: Keep Vein Open Last Admin: 09/30/20 15:05 Dose: 10 ml Documented by: Discontinued Medications Acetaminophen (Tylenol) 650 mg PO NOW ONE Stop: 09/30/20 20:24 Last Admin: 09/30/20 20:33 Dose: 650 mg Documented by: Al Hydroxide/Mg Hydroxide (Mag-Al Plus) 30 ml PO ONETIME ONE Stop: 10/03/20 18:14 Last Admin: 10/03/20 18:21 Dose: 30 ml Documented by: Amitriptyline HCl (Elavil) 25 mg PO BEDTIME [facility] Last Admin: 10/01/20 21:11 Dose: 25 mg Documented by: Aspirin (Halfprin) 81 mg PO DAILY [facility] Azithromycin (Zithromax) 500 mg PO DAILY [facility] Stop: 10/04/20 09:01 Last Admin: 10/04/20 09:39 Dose: 500 mg Documented by: Diphenhydramine HCl (Benadryl) 50 mg IVPUSH ONETIME PRN PRN Reason: hypersensitivity reaction Enoxaparin Sodium (Lovenox) 60 mg SUBCUT DAILY [facility] Last Admin: 10/01/20 03:48 Dose: Not Given Documented by: Enoxaparin Sodium (Lovenox) 60 mg SUBCUT DAILY [facility] Last Admin: 10/01/20 00:58 Dose: 60 mg Documented by: Enoxaparin Sodium (Lovenox) 60 mg SUBCUT BEDTIME [facility] Epinephrine HCl (Adrenalin) 0.3 mg IM ONETIME PRN PRN Reason: hypersensitivity reaction Famotidine (Pepcid) 20 mg IVPUSH ONETIME PRN PRN Reason: hypersensitivity reaction Last Admin: 10/01/20 01:09 Dose: 20 mg Documented by: Famotidine (Pepcid) 20 mg PO BID [facility] Last Admin: 10/01/20 22:03 Dose: 20 mg Documented by: Heparin Sodium (Porcine) (Heparin Sodium) 5,000 units SUBCUT Q8H [facility] Last Admin: 10/01/20 03:48 Dose: Not Given Documented by: Hydrochlorothiazide (Hydrochlorothiazide) 25 mg PO BEDTIME [facility] Last Admin: 10/01/20 21:11 Dose: 25 mg Documented by: Magnesium Sulfate 2 gm/ Premix 50 mls @ 25 mls/hr IV Q1H [facility] Stop: 09/30/20 18:29 Last Admin: 09/30/20 20:43 Dose: Not Given Documented by: Non-Formulary Medication 1,200 mg/ Non-Formulary Medication 1,200 mg/ Sodium Chloride 250 mls @ 250 mls/hr IV ONETIME ONE Stop: 09/30/20 17:23 Last Admin: 09/30/20 17:06 Dose: 250 mls/hr Documented by: Sodium Chloride (Normal Saline) 1,000 mls @ 500 mls/hr IV ONETIME ONE Stop: 09/30/20 18:24 Last Admin: 09/30/20 16:41 Dose: 500 mls/hr Documented by: Sodium Chloride (Normal Saline) 1,000 mls @ 500 mls/hr IV ONETIME ONE Stop: 09/30/20 18:31 Last Admin: 09/30/20 18:20 Dose: 500 mls/hr Documented by: Sodium Chloride (Normal Saline) 1,000 mls @ 50 mls/hr IV ASDIRECTED [facility] Last Admin: 10/01/20 01:20 Dose: 50 mls/hr Documented by: Sodium Chloride (Normal Saline) 500 mls @ 999 mls/hr IV .BOLUS ONE Stop: 09/30/20 23:09 Last Admin: 09/30/20 22:47 Dose: 999 mls/hr Documented by: Ceftriaxone Sodium 1 gm/ (Sodium Chloride) 100 mls @ 200 mls/hr IV Q24H [facility] Last Admin: 09/30/20 22:55 Dose: 200 mls/hr Documented by: Norepinephrine Bitartrate 4 mg (/ Dextrose/Water) 250 mls @ 7.5 mls/hr IV TITRATE [facility]; Protocol Last Titration: 10/01/20 08:43 Dose: 0 mcg/min, 0 mls/hr Documented by: Magnesium Sulfate 4 gm/ Premix 50 mls @ 12.5 mls/hr IV ONETIME ONE Stop: 10/01/20 14:36 Last Admin: 10/01/20 10:58 Dose: 12.5 mls/hr Documented by: Lactated Ringer's (Ringers, Lactated) 1,000 mls @ 999 mls/hr IV .BOLUS ONE Stop: 10/02/20 01:25 Last Admin: 10/02/20 00:44 Dose: 999 mls/hr Documented by: Magnesium Sulfate 4 gm/ Premix 50 mls @ 12.5 mls/hr IV ONETIME ONE Stop: 10/03/20 19:29 Last Admin: 10/03/20 15:23 Dose: 12.5 mls/hr Documented by: Insulin Human Lispro (Humalog) 0 unit SUBCUT QIDACANDBED [facility]; Protocol Last Admin: 10/03/20 12:17 Dose: 4 unit Documented by: Magnesium Oxide (Magnesium Oxide) 800 mg PO ONETIME ONE Stop: 09/30/20 16:46 Last Admin: 09/30/20 17:18 Dose: 800 mg Documented by: Methylprednisolone Sodium Succinate (Solu-Medrol) 125 mg IVPUSH ONETIME PRN PRN Reason: hypersensitivity reaction Morphine Sulfate (Morphine) 2 mg IVPUSH Q4H PRN PRN Reason: Pain (severe 7-10) Stop: 10/01/20 21:41 Last Admin: 09/30/20 22:21 Dose: 2 mg Documented by: Ondansetron HCl (Zofran) 4 mg IVPUSH ONETIME ONE Stop: 09/30/20 19:55 Last Admin: 09/30/20 20:09 Dose: 4 mg Documented by: Potassium Chloride (Klor-Con M20) 40 meq PO ONETIME ONE Stop: 10/01/20 10:37 Last Admin: 10/01/20 10:58 Dose: 40 meq Documented by: Potassium Chloride (Klor-Con M20) 40 meq PO ONETIME ONE Stop: 10/02/20 10:35 Last Admin: 10/02/20 11:00 Dose: 40 meq Documented by: Sodium Chloride (Saline Flush) 30 ml FLUSH ASDIRECTED ROSEANNA Last Admin: 09/30/20 18:15 Dose: 30 ml Documented by: Tramadol HCl (Ultram) 100 mg PO ONETIME ONE Stop: 09/30/20 20:03 Last Admin: 09/30/20 20:43 Dose: Not Given Documented by: - Exam Quality Assessment: DVT Prophylaxis. No: Supplemental Oxygen (requiring at night but not during day), Urine Catheter General: Alert, Oriented, Cooperative, No Acute Distress HEENT: Pupils Equal, Pupils Reactive, Mucous Membr. Moist/[place] Neck: Supple, Trachea Midline Lungs: Normal Respiratory Effort, Decreased Breath Sounds. No: Crackles, Rales, Wheezing Cardiovascular: Regular Rate, Regular Rhythm GI/Abdominal Exam: Normal Bowel Sounds, Soft, Non-Tender, No Distention, No Abnormal Bruit (Female) Exam: Deferred Back Exam: Normal Inspection, Decreased Range of Motion Extremities: Normal Inspection, Non-Tender, No Pedal Edema, Normal Capillary Refill, Limited Range of Motion (2/2 pain ) Skin: Warm, Dry, Intact Neurological: No New Focal Deficit Psy/Mental Status: Alert, Normal Affect, Normal Mood Sepsis Event Note - Evaluation Sepsis Screening Result: No Definite Risk - Focused Exam Vital Signs: Vital Signs Temp Temp Pulse Pulse Resp BP BP 10/06/20 09:30 10/06/20 09:00 98.0 F 156 H 20 110/73 10/06/20 06:45 10/06/20 06:18 97.9 F 86 13 144/73 H 10/05/20 22:45 Pulse Ox Pulse Ox 10/06/20 09:30 92 L 10/06/20 09:00 96 10/06/20 06:45 92 L 10/06/20 06:18 96 10/05/20 22:45 94 L - Problem List & Annotations (1) Acute hypoxemic respiratory failure due to COVID-19 SNOMED Code(s): 692905833 Code(s): U07.1 - COVID-19; J96.01 - ACUTE RESPIRATORY FAILURE WITH HYPOXIA Status: Acute Priority: High Current Visit: Yes (2) CAP (community acquired pneumonia) SNOMED Code(s): 500732320 Code(s): J18.9 - PNEUMONIA, UNSPECIFIED ORGANISM Status: Acute Priority: High Current Visit: Yes Qualifiers: Laterality: unspecified laterality Qualified Code(s): J18.9 - Pneumonia, unspecified organism (3) Hypokalemia SNOMED Code(s): 83167840 Code(s): E87.6 - HYPOKALEMIA Status: Acute Priority: High Current Visit: Yes (4) Hypomagnesemia SNOMED Code(s): 935376285 Code(s): E83.42 - HYPOMAGNESEMIA Status: Resolved Priority: High Current Visit: Yes (5) RICK (acute kidney injury) SNOMED Code(s): 33460205, 39639169 Code(s): N17.9 - ACUTE KIDNEY FAILURE, UNSPECIFIED Status: Resolved Current Visit: Yes (6) Elevated troponin I level SNOMED Code(s): 257284766 Code(s): R77.8 - OTHER SPECIFIED ABNORMALITIES OF PLASMA PROTEINS Status: Acute Priority: Low Current Visit: Yes (7) Hypoalbuminemia SNOMED Code(s): 596096183 Code(s): E88.09 - OTH DISORDERS OF PLASMA-PROTEIN METABOLISM, NEC Status: Chronic Priority: Medium Current Visit: Yes (8) Vitamin D deficiency SNOMED Code(s): 35346203 Code(s): E55.9 - VITAMIN D DEFICIENCY, UNSPECIFIED Status: Acute Priority: High Current Visit: Yes (9) HTN (hypertension) SNOMED Code(s): 70749418 Code(s): I10 - ESSENTIAL (PRIMARY) HYPERTENSION Status: Chronic Priority: Medium Current Visit: Yes Qualifiers: Hypertension type: unspecified Qualified Code(s): I10 - Essential (primary) hypertension (10) Type II diabetes mellitus SNOMED Code(s): 87114819 Code(s): E11.9 - TYPE 2 DIABETES MELLITUS WITHOUT COMPLICATIONS Status: Chronic Priority: High Current Visit: Yes Qualifiers: 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 Acute on chronic hypoxic respiratory failure ABG - PCO2 33, PO2 56, SO2 86.1% pulse ox O2 therapy. Keep SpO2 > 92 2. Early pneumonia or clinical pneumonia, Covid 19? or CAP? 3. Covid 19 was positive CXR - No acute change Blood culture Sputum culture MRSA screen Ferritin 141, CRP 10.3, D-dimer 2.08 Selvin COVID-19 monoclonal antibody was given I will not start her on antibiotics at this moment I would not like to start her on steroid at the early stage. Lovenox 60mg daily Home aspirin is on hold. Inhalers CRP and D-dimer daily 4. RICK? creatinine 1.2 on 08/12/2020 Avoid nephrotoxic meds Repeat renal function in am IVF 5. HTN Continue HCTZ 25mg daily Lisinopril 20mg daily is on hold Hydralazine prn 6. DM type 2 Metformin 500mg daily is on hold diabetic diet Insulin ss 7. GI and DVT prophylaxis: famotidine and lovenox 10/01/2020 1. Acute hypoxic respiratory failure secondary to COVID-19 Oxygen requirement significantly improved. On 1 L FiO2 via nasal cannula with oxygen saturations in the upper 90s. We will continue to wean off throughout the day. 2. Community-acquired pneumonia Repeat chest x-ray consistent with right midlung infiltrate or developing pneumonia WBC increased from 5.7-13.7. Blood culture Sputum culture MRSA screen On admission ferritin 141, CRP 10.3, D-dimer 2.08 Selvin COVID-19 monoclonal antibody was given Increase Rocephin to 2 g daily Start azithromycin 500 mg daily for 3 days Hold off on steroids at this time since hypoxemia is improving Lovenox 40mg daily Home aspirin is on hold. Inhalers CRP and D-dimer daily 3. Hypokalemia/hypomagnesemia Potassium 3.3, magnesium 1.6 Supplement both and repeat tomorrow 4. RICK: creatinine 1.2 on 08/12/2020 -resolved Renal function improved with creatinine down from 1.0 to 1.3 Avoid nephrotoxic meds Repeat renal function in am Stop IVF 5. Elevated troponintroponin increased from 0.078-0.137. 6. Hypoalbuminemia at 2.1, down from 2.7 on admission. Dietary consult. 7. Low vitamin D14.9, start vitamin D3 10,000 units daily 8. HTN Continue HCTZ 25mg daily Lisinopril 20mg daily is on hold Follow electrolytes Hydralazine prn 9. DM type 2 Metformin 500mg daily is on hold diabetic diet Insulin ss 10. GI and DVT prophylaxis: famotidine and lovenox October 02, 2020 84-year-old with COVID-19 and acute hypoxia on day 2 of hospitalization. Patient is still on only 1 L of O2 via nasal cannula. She did receive 25 mg of hydrochlorothiazide prior to bed last night and had another several episodes in the middle the night of low blood pressures requiring a fluid bolus. This is likely secondary to both the COVID-19 and medication. Hydrochlorothiazide will be held. She did have a 3 pound weight gain and 2 g drop in her hemoglobin. This is likely delusional. Also hypokalemia secondary to the above. Potassium today was 3.3. Blood sugars continue to be well controlled on sliding scale insulin. Acute renal injury has resolved with a creatinine of 0.9 and an estimated GFR greater than 60. Magnesium was replaced yesterday. Continue to treat pneumonia as community-acquired pneumonia with Rocephin and start azithromycin. Length of stay 2-3 more days. October 03, 2020 84-year-old female with COVID-19 and hypoxemia on 0.5 L per nasal cannula today. Patient is doing well, but did have an episode of sinus tachycardia when working with physical therapy. This did resolve with a little rest. She did not require more oxygen at that time. She did not have any more episodes of hypotension. She continues azithromycin and ceftriaxone for her community- acquired pneumonia. She has been afebrile and her white count is 4.9. Acute kidney injury has resolved and her creatinine is 0.8 at this time. She is curre ntly off all blood pressure medications. Blood sugars have been stable. She should be ready for discharge in the next couple of days. I prefer to get her on room air or at least greater than 5 days of IV antibiotics. 10/04/2020 Continues to do well. She is now on RA satting adequately. She gets tachycardia with activities and exertion but comes back down to sinus rhythm with rest. Will continue current treatment. Encourage to use IS and FV as directed. Routine AM labs. Updated her daughter about patient clinical progress. LOS > 96 hrs as she needs more time with treatment. 10/05/2020 She looks relatively well. She remains on RA satting adequately. No reports of tachycardia with exertion. Will continue current treatment. Encourage to use IS and FV as directed. Routine AM labs. Replete low electrolytes as needed. Needs re-eval by PT/OT tomorrow. She remains weak and requires some assistance to get up and ambulate. LOS > 96 hrs as she needs more time with treatment. 10/06/2020 Overall patient continues to do pretty well. Her saturations remain middle to upper 90's off of oxygen. She is noted to drop into the 80's overnight, so will order overnight pulse oximetry tonight. She reports she did not sleep well last night and is quite tired today. She has been working with PT/OT. Re-check labs in AM. Hopeful for discharge tomorrow pending continued improvement.
[2020-10-06] MEDS: Famotidine 20 MG Tab PO SCH (21:51)
[2020-10-06] MEDS: Simvastatin 20 MG Tab PO SCH (21:51)
[2020-10-07] MEDS: Acetaminophen 325 MG Tab PO PRN ×3 (05:12→21:46)
[2020-10-07] MEDS: oxyCODONE 5 MG Tab PO PRN ×3 (05:13→21:47)
--- NOTE | 2020-10-07 07:34 | PCM.PN ---
- General Info Date of Service: 10/07/20 Admission Dx/Problem (Free Text): Admission Diagnosis/Problem Admission Diagnosis/Problem Respiratory failure with hypoxia - Patient Data Vitals - Most Recent: Last Vital Signs Temp 98.0 F 10/07/20 04:00 Pulse 95 10/07/20 04:00 Resp 20 10/07/20 04:00 BP 139/73 10/07/20 04:00 Pulse Ox 98 10/07/20 06:12 Weight - Most Recent: 146 lb 8 oz I&O - Last 24 Hours: Intake & Output 10/06/20 10/07/20 10/07/20 22:59 06:59 14:59 Intake Total 1090 300 Output Total 0 600 Balance 1090 -300 Lab Results Last 24 Hours: Laboratory Results - last 24 hr 10/06/20 10/06/20 10/06/20 Range/Units 11:30 12:22 17:32 WBC (3.98-10.04) K/mm3 RBC (3.98-5.22) M/mm3 Hgb (11.2-15.7) gm/dl Hct (34.1-44.9) % MCV (79.4-94.8) fl MCH (25.6-32.2) pg MCHC (32.2-35.5) g/dl RDW Std Deviation (36.4-46.3) fL Plt Count (182-369) K/mm3 MPV (9.4-12.3) fl Neut % (Auto) (34.0-71.1) % Lymph % (Auto) (19.3-51.7) % Callahan % (Auto) (4.7-12.5) % Eos % (Auto) (0.7-5.8) Baso % (Auto) (0.1-1.2) % Neut # (Auto) (1.56-6.13) K/mm3 Lymph # (Auto) (1.18-3.74) K/mm3 Callahan # (Auto) (0.24-0.36) K/mm3 Eos # (Auto) (0.04-0.36) K/mm3 Baso # (Auto) (0.01-0.08) K/mm3 Glucose 303 H (83-115) mg/dL POC Glucose 400 H 83 (83-110) mg/dL 10/07/20 Range/Units 06:54 WBC 9.69 (3.98-10.04) K/mm3 RBC 3.45 L (3.98-5.22) M/mm3 Hgb 9.4 L (11.2-15.7) gm/dl Hct 30.1 L (34.1-44.9) % MCV 87.2 (79.4-94.8) fl MCH 27.2 (25.6-32.2) pg MCHC 31.2 L (32.2-35.5) g/dl RDW Std Deviation 46.1 (36.4-46.3) fL Plt Count 512 H D (182-369) K/mm3 MPV 9.7 (9.4-12.3) fl Neut % (Auto) 75.1 H (34.0-71.1) % Lymph % (Auto) 10.4 L (19.3-51.7) % Callahan % (Auto) 11.9 (4.7-12.5) % Eos % (Auto) 1.7 (0.7-5.8) Baso % (Auto) 0.1 (0.1-1.2) % Neut # (Auto) 7.28 H (1.56-6.13) K/mm3 Lymph # (Auto) 1.01 L (1.18-3.74) K/mm3 Callahan # (Auto) 1.15 H (0.24-0.36) K/mm3 Eos # (Auto) 0.16 (0.04-0.36) K/mm3 Baso # (Auto) 0.01 (0.01-0.08) K/mm3 Glucose (83-115) mg/dL POC Glucose (83-110) mg/dL Anthony Results Last 24 Hours: Microbiology 09/30/20 15:15 Aerobic Blood Culture - Preliminary Blood - Venous - Lab Draw NO GROWTH AFTER 6 DAYS Anaerobic Blood Culture - Preliminary NO GROWTH AFTER 6 DAYS 09/30/20 15:05 Aerobic Blood Culture - Preliminary Blood - Venous NO GROWTH AFTER 6 DAYS Anaerobic Blood Culture - Preliminary NO GROWTH AFTER 6 DAYS Med Orders - Current: Current Medications Acetaminophen (Tylenol) 650 mg RECTAL Q6H PRN PRN Reason: Pain (mild 1-3) Acetaminophen (Tylenol) 650 mg PO Q4H PRN PRN Reason: Pain Last Admin: 10/07/20 05:12 Dose: 650 mg Documented by: Albuterol/Ipratropium (Duoneb 3.0-0.5 Mg/3 Ml) 3 ml NEB Q4H PRN PRN Reason: Shortness Of Breath/wheezing Benzocaine/Menthol (Cepacol Sore Throat) 1 lozenge MUCMEM Q2HR PRN PRN Reason: Sore Throat Last Admin: 10/02/20 20:23 Dose: 1 lozenge Documented by: Brimonidine Tartrate (Alphagan 0.2% Ophth Soln) 0 ml EYEBOTH BID [facility] Last Admin: 10/06/20 21:52 Dose: 1 drop Documented by: Cholecalciferol (Vitamin D3) 10,000 unit PO DAILY [facility] Last Admin: 10/06/20 09:53 Dose: 10,000 unit Documented by: Docusate Sodium (Colace) 100 mg PO BID PRN PRN Reason: Constipation Enoxaparin Sodium (Lovenox) 40 mg SUBCUT DAILY [facility] Last Admin: 10/06/20 09:53 Dose: 40 mg Documented by: Famotidine (Pepcid) 20 mg PO BEDTIME [facility] Last Admin: 10/06/20 21:51 Dose: 20 mg Documented by: Hydralazine HCl (Apresoline) 10 mg IVPUSH Q4H PRN PRN Reason: Hypertension Promethazine HCl 12.5 mg/ (Sodium Chloride) 50.5 mls @ 100 mls/hr IV Q6H PRN PRN Reason: Nausea/Vomiting Insulin Human Lispro (Humalog) 0 unit SUBCUT QIDACANDBED [facility]; Protocol Last Admin: 10/07/20 07:05 Dose: Not Given Documented by: Magnesium Oxide (Magnesium Oxide) 400 mg PO BID [facility] Last Admin: 10/06/20 21:51 Dose: 400 mg Documented by: Metoprolol Tartrate (Lopressor) 5 mg IVPUSH Q6H PRN PRN Reason: Tachycardia Oxycodone HCl (Oxycodone) 5 mg PO Q6H PRN PRN Reason: Pain (moderate 4-6) Last Admin: 10/07/20 05:13 Dose: 5 mg Documented by: Saccharomyces Boulardii (Florastor) 500 mg PO BID [facility] Last Admin: 10/06/20 21:51 Dose: 500 mg Documented by: Simvastatin (Zocor) 20 mg PO BEDTIME [facility] Last Admin: 10/06/20 21:51 Dose: 20 mg Documented by: Sodium Chloride (Saline Flush) 10 ml FLUSH ASDIRECTED PRN PRN Reason: Keep Vein Open Last Admin: 09/30/20 15:05 Dose: 10 ml Documented by: Discontinued Medications Acetaminophen (Tylenol) 650 mg PO NOW ONE Stop: 09/30/20 20:24 Last Admin: 09/30/20 20:33 Dose: 650 mg Documented by: Al Hydroxide/Mg Hydroxide (Mag-Al Plus) 30 ml PO ONETIME ONE Stop: 10/03/20 18:14 Last Admin: 10/03/20 18:21 Dose: 30 ml Documented by: Amitriptyline HCl (Elavil) 25 mg PO BEDTIME [facility] Last Admin: 10/01/20 21:11 Dose: 25 mg Documented by: Aspirin (Halfprin) 81 mg PO DAILY [facility] Azithromycin (Zithromax) 500 mg PO DAILY [facility] Stop: 10/04/20 09:01 Last Admin: 10/04/20 09:39 Dose: 500 mg Documented by: Diphenhydramine HCl (Benadryl) 50 mg IVPUSH ONETIME PRN PRN Reason: hypersensitivity reaction Enoxaparin Sodium (Lovenox) 60 mg SUBCUT DAILY [facility] Last Admin: 10/01/20 03:48 Dose: Not Given Documented by: Enoxaparin Sodium (Lovenox) 60 mg SUBCUT DAILY [facility] Last Admin: 10/01/20 00:58 Dose: 60 mg Documented by: Enoxaparin Sodium (Lovenox) 60 mg SUBCUT BEDTIME [facility] Epinephrine HCl (Adrenalin) 0.3 mg IM ONETIME PRN PRN Reason: hypersensitivity reaction Famotidine (Pepcid) 20 mg IVPUSH ONETIME PRN PRN Reason: hypersensitivity reaction Last Admin: 10/01/20 01:09 Dose: 20 mg Documented by: Famotidine (Pepcid) 20 mg PO BID [facility] Last Admin: 10/01/20 22:03 Dose: 20 mg Documented by: Heparin Sodium (Porcine) (Heparin Sodium) 5,000 units SUBCUT Q8H [facility] Last Admin: 10/01/20 03:48 Dose: Not Given Documented by: Hydrochlorothiazide (Hydrochlorothiazide) 25 mg PO BEDTIME [facility] Last Admin: 10/01/20 21:11 Dose: 25 mg Documented by: Magnesium Sulfate 2 gm/ Premix 50 mls @ 25 mls/hr IV Q1H [facility] Stop: 09/30/20 18:29 Last Admin: 09/30/20 20:43 Dose: Not Given Documented by: Non-Formulary Medication 1,200 mg/ Non-Formulary Medication 1,200 mg/ Sodium Chloride 250 mls @ 250 mls/hr IV ONETIME ONE Stop: 09/30/20 17:23 Last Admin: 09/30/20 17:06 Dose: 250 mls/hr Documented by: Sodium Chloride (Normal Saline) 1,000 mls @ 500 mls/hr IV ONETIME ONE Stop: 09/30/20 18:24 Last Admin: 09/30/20 16:41 Dose: 500 mls/hr Documented by: Sodium Chloride (Normal Saline) 1,000 mls @ 500 mls/hr IV ONETIME ONE Stop: 09/30/20 18:31 Last Admin: 09/30/20 18:20 Dose: 500 mls/hr Documented by: Sodium Chloride (Normal Saline) 1,000 mls @ 50 mls/hr IV ASDIRECTED [facility] Last Admin: 10/01/20 01:20 Dose: 50 mls/hr Documented by: Sodium Chloride (Normal Saline) 500 mls @ 999 mls/hr IV .BOLUS ONE Stop: 09/30/20 23:09 Last Admin: 09/30/20 22:47 Dose: 999 mls/hr Documented by: Ceftriaxone Sodium 1 gm/ (Sodium Chloride) 100 mls @ 200 mls/hr IV Q24H [facility] Last Admin: 09/30/20 22:55 Dose: 200 mls/hr Documented by: Norepinephrine Bitartrate 4 mg (/ Dextrose/Water) 250 mls @ 7.5 mls/hr IV TITRATE [facility]; Protocol Last Titration: 10/01/20 08:43 Dose: 0 mcg/min, 0 mls/hr Documented by: Magnesium Sulfate 4 gm/ Premix 50 mls @ 12.5 mls/hr IV ONETIME ONE Stop: 10/01/20 14:36 Last Admin: 10/01/20 10:58 Dose: 12.5 mls/hr Documented by: Ceftriaxone Sodium 2 gm/ (Sodium Chloride) 100 mls @ 200 mls/hr IV Q24H [facility] Last Admin: 10/05/20 20:27 Dose: 200 mls/hr Documented by: Lactated Ringer's (Ringers, Lactated) 1,000 mls @ 999 mls/hr IV .BOLUS ONE Stop: 10/02/20 01:25 Last Admin: 10/02/20 00:44 Dose: 999 mls/hr Documented by: Magnesium Sulfate 4 gm/ Premix 50 mls @ 12.5 mls/hr IV ONETIME ONE Stop: 10/03/20 19:29 Last Admin: 10/03/20 15:23 Dose: 12.5 mls/hr Documented by: Insulin Human Lispro (Humalog) 0 unit SUBCUT QIDACANDBED [facility]; Protocol Last Admin: 10/03/20 12:17 Dose: 4 unit Documented by: Magnesium Oxide (Magnesium Oxide) 800 mg PO ONETIME ONE Stop: 09/30/20 16:46 Last Admin: 09/30/20 17:18 Dose: 800 mg Documented by: Methylprednisolone Sodium Succinate (Solu-Medrol) 125 mg IVPUSH ONETIME PRN PRN Reason: hypersensitivity reaction Morphine Sulfate (Morphine) 2 mg IVPUSH Q4H PRN PRN Reason: Pain (severe 7-10) Stop: 10/01/20 21:41 Last Admin: 09/30/20 22:21 Dose: 2 mg Documented by: Ondansetron HCl (Zofran) 4 mg IVPUSH ONETIME ONE Stop: 09/30/20 19:55 Last Admin: 09/30/20 20:09 Dose: 4 mg Documented by: Potassium Chloride (Klor-Con M20) 40 meq PO ONETIME ONE Stop: 10/01/20 10:37 Last Admin: 10/01/20 10:58 Dose: 40 meq Documented by: Potassium Chloride (Klor-Con M20) 40 meq PO ONETIME ONE Stop: 10/02/20 10:35 Last Admin: 10/02/20 11:00 Dose: 40 meq Documented by: Sodium Chloride (Saline Flush) 30 ml FLUSH ASDIRECTED [facility] Last Admin: 09/30/20 18:15 Dose: 30 ml Documented by: Tramadol HCl (Ultram) 100 mg PO ONETIME ONE Stop: 02/09/21 20:03 Last Admin: 09/30/20 20:43 Dose: Not Given Documented by: Sepsis Event Note - Evaluation Sepsis Screening Result: No Definite Risk - Focused Exam Vital Signs: Vital Signs Temp Pulse Resp BP Pulse Ox Pulse Ox 10/07/20 06:12 98 10/07/20 04:00 98.0 F 95 20 139/73 95 10/07/20 02:00 93 L - Problem List & Annotations (1) Acute hypoxemic respiratory failure due to COVID-19 SNOMED Code(s): 593623085 Code(s): U07.1 - COVID-19; J96.01 - ACUTE RESPIRATORY FAILURE WITH HYPOXIA Status: Acute Priority: High Current Visit: Yes (2) CAP (community acquired pneumonia) SNOMED Code(s): 547126957 Code(s): J18.9 - PNEUMONIA, UNSPECIFIED ORGANISM Status: Acute Priority: High Current Visit: Yes Qualifiers: Laterality: unspecified laterality Qualified Code(s): J18.9 - Pneumonia, unspecified organism (3) Hypokalemia SNOMED Code(s): 83028973 Code(s): E87.6 - HYPOKALEMIA Status: Acute Priority: High Current Visit: Yes (4) Hypomagnesemia SNOMED Code(s): 312149017 Code(s): E83.42 - HYPOMAGNESEMIA Status: Resolved Priority: High Current Visit: Yes (5) RICK (acute kidney injury) SNOMED Code(s): 05911623, 88674118 Code(s): N17.9 - ACUTE KIDNEY FAILURE, UNSPECIFIED Status: Resolved Current Visit: Yes (6) Elevated troponin I level SNOMED Code(s): 225594756 Code(s): R77.8 - OTHER SPECIFIED ABNORMALITIES OF PLASMA PROTEINS Status: Acute Priority: Low Current Visit: Yes (7) Hypoalbuminemia SNOMED Code(s): 229247482 Code(s): E88.09 - OTH DISORDERS OF PLASMA-PROTEIN METABOLISM, NEC Status: Chronic Priority: Medium Current Visit: Yes (8) Vitamin D deficiency SNOMED Code(s): 05995240 Code(s): E55.9 - VITAMIN D DEFICIENCY, UNSPECIFIED Status: Acute Priority: High Current Visit: Yes (9) HTN (hypertension) SNOMED Code(s): 59988778 Code(s): I10 - ESSENTIAL (PRIMARY) HYPERTENSION Status: Chronic Priority: Medium Current Visit: Yes Qualifiers: Hypertension type: unspecified Qualified Code(s): I10 - Essential (primary) hypertension (10) Type II diabetes mellitus SNOMED Code(s): 36355083 Code(s): E11.9 - TYPE 2 DIABETES MELLITUS WITHOUT COMPLICATIONS Status: Chronic Priority: High Current Visit: Yes Qualifiers: 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: without assisted use - My Orders Last 24 Hours: My Active Orders 10/06/20 15:14 Overnight Pulse Oximetry [RC] Click to Edit 10/06/20 15:15 Consult to Case Management/Olive Packer [CONS] Routine 10/07/20 06:54 BASIC METABOLIC PANEL,BMP [CHEM] AM MAGNESIUM [CHEM] AM 10/08/20 05:11 BASIC METABOLIC PANEL,BMP [CHEM] AM CBC WITH AUTO DIFF [HEME] AM MAGNESIUM [CHEM] AM 10/09/20 05:11 BASIC METABOLIC PANEL,BMP [CHEM] AM CBC WITH AUTO DIFF [HEME] AM MAGNESIUM [CHEM] AM 10/10/20 05:11 BASIC METABOLIC PANEL,BMP [CHEM] AM CBC WITH AUTO DIFF [HEME] AM MAGNESIUM [CHEM] AM - Plan Plan:: Assessment and plan: 09/30/2020 1. Acute on chronic hypoxic respiratory failure ABG - PCO2 33, PO2 56, SO2 86.1% pulse ox O2 therapy. Keep SpO2 > 92 2. Early pneumonia or clinical pneumonia, Covid 19? or CAP? 3. Covid 19 was positive CXR - No acute change Blood culture Sputum culture MRSA screen Ferritin 141, CRP 10.3, D-dimer 2.08 Matthew's COVID-19 monoclonal antibody was given I will not start her on antibiotics at this moment I would not like to start her on steroid at the early stage. Lovenox 60mg daily Home aspirin is on hold. Inhalers CRP and D-dimer daily 4. RICK? creatinine 1.2 on 08/12/2020 Avoid nephrotoxic meds Repeat renal function in am IVF 5. HTN Continue HCTZ 25mg daily Lisinopril 20mg daily is on hold Hydralazine prn 6. DM type 2 Metformin 500mg daily is on hold diabetic diet Insulin ss 7. GI and DVT prophylaxis: famotidine and lovenox 10/01/2020 1. Acute hypoxic respiratory failure secondary to COVID-19 Oxygen requirement significantly improved. On 1 L FiO2 via nasal cannula with oxygen saturations in the upper 90s. We will continue to wean off throughout the day. 2. Community-acquired pneumonia Repeat chest x-ray consistent with right midlung infiltrate or developing pneumonia WBC increased from 5.7-13.7. Blood culture Sputum culture MRSA screen On admission ferritin 141, CRP 10.3, D-dimer 2.08 Matthew's COVID-19 monoclonal antibody was given Increase Rocephin to 2 g daily Start azithromycin 500 mg daily for 3 days Hold off on steroids at this time since hypoxemia is improving Lovenox 40mg daily Home aspirin is on hold. Inhalers CRP and D-dimer daily 3. Hypokalemia/hypomagnesemia Potassium 3.3, magnesium 1.6 Supplement both and repeat tomorrow 4. RICK: creatinine 1.2 on 08/12/2020 -resolved Renal function improved with creatinine down from 1.0 to 1.3 Avoid nephrotoxic meds Repeat renal function in am Stop IVF 5. Elevated troponintroponin increased from 0.078-0.137. 6. Hypoalbuminemia at 2.1, down from 2.7 on admission. Dietary consult. 7. Low vitamin D14.9, start vitamin D3 10,000 units daily 8. HTN Continue HCTZ 25mg daily Lisinopril 20mg daily is on hold Follow electrolytes Hydralazine prn 9. DM type 2 Metformin 500mg daily is on hold diabetic diet Insulin ss 10. GI and DVT prophylaxis: famotidine and lovenox October 02, 2020 84-year-old with COVID-19 and acute hypoxia on day 2 of hospitalization. Manish leon is still on only 1 L of O2 via nasal cannula. She did receive 25 mg of hydrochlorothiazide prior to bed last night and had another several episodes in the middle the night of low blood pressures requiring a fluid bolus. This is likely secondary to both the COVID-19 and medication. Hydrochlorothiazide will be held. She did have a 3 pound weight gain and 2 g drop in her hemoglobin. This is likely delusional. Also hypokalemia secondary to the above. Potassium today was 3.3. Blood sugars continue to be well controlled on sliding scale insulin. Acute renal injury has resolved with a creatinine of 0.9 and an estimated GFR greater than 60. Magnesium was replaced yesterday. Continue to treat pneumonia as community-acquired pneumonia with Rocephin and start azithromycin. Length of stay 2-3 more days. October 03, 2020 84-year-old female with COVID-19 and hypoxemia on 0.5 L per nasal cannula today. Patient is doing well, but did have an episode of sinus tachycardia when working with physical therapy. This did resolve with a little rest. She did not require more oxygen at that time. She did not have any more episodes of hypotension. She continues azithromycin and ceftriaxone for her community- acquired pneumonia. She has been afebrile and her white count is 4.9. Acute kidney injury has resolved and her creatinine is 0.8 at this time. She is c urrently off all blood pressure medications. Blood sugars have been stable. She should be ready for discharge in the next couple of days. I prefer to get her on room air or at least greater than 5 days of IV antibiotics. 10/04/2020 Continues to do well. She is now on RA satting adequately. She gets tachycardia with activities and exertion but comes back down to sinus rhythm with rest. Will continue current treatment. Encourage to use IS and FV as directed. Routine AM labs. Updated her daughter about patient clinical progress. LOS > 96 hrs as she needs more time with treatment. 10/05/2020 She looks relatively well. She remains on RA satting adequately. No reports of tachycardia with exertion. Will continue current treatment. Encourage to use IS and FV as directed. Routine AM labs. Replete low electrolytes as needed. Needs re-eval by PT/OT tomorrow. She remains weak and requires some assistance to get up and ambulate. LOS > 96 hrs as she needs more time with treatment. 10/06/2020 Overall patient continues to do pretty well. Her saturations remain middle to upper 90's off of oxygen. She is noted to drop into the 80's overnight, so will order overnight pulse oximetry tonight. She reports she did not sleep well last night and is quite tired today. She has been working with PT/OT. Re-check labs in AM. Hopeful for discharge tomorrow pending continued improvement.
[2020-10-07] MEDS ORDERED: Magnesium Sulfate/Water 4 GM in Premix Bag 1 BAG IV ONE (08:31)
[2020-10-07] MEDS: Enoxaparin 40 MG/0.4 ML Syringe SUBCUT SCH (09:35)
[2020-10-07] MEDS: Brimonidine 0.2% Ophth Soln 5 ML Bottle EYEBOTH SCH ×2 (09:36→21:45)
[2020-10-07] MEDS: Magnesium Oxide 400 MG Tab PO SCH ×2 (09:37→21:46)
[2020-10-07] MEDS: Saccharomyces Boulardii (Probiotic) 250 MG Cap PO SCH ×2 (09:37→21:46)
[2020-10-07] MEDS: Potassium Chloride 20 MEQ Tab.ER PO SCH (09:37)
[2020-10-07] MEDS: Cholecalciferol (Vitamin D3) 5,000 UNIT Cap PO SCH (09:37)
--- NOTE | 2020-10-07 09:46 | PCM.DCSUM1 ---
Discharge Summary - Hospital Course HPI Initial Comments: Pt is an 84yof with a hx of HTN and recurrent UTI who presented to the ER due to fever and sore throat. Pt started to sore throat and fever 3 days ago associated with nausea. She denies darrhea, headache, dizziness, chest pain, sob, abdominal pain, or dysuria. She had several episodes of UTI and completed antibiotics recently. In the ER, she was found to have oxygen desaturation 90-. Covid 19 test was positive. CXR showed pulmonary congestion. Regeneron COVID-19 monoclonal antibody was given Diagnosis: Stroke: No - Discharge Data Discharge Date: 10/08/20 (Admit date: 09/30/20) Discharge Disposition: Home, Home Health Agency 06 Condition: Good - Referral to Home Health Date of Face to Face Encounter: 10/07/20 Reason for Homebound Status: See discharge summary Primary Care Physician: Norma Faria NP Skilled Need: See discharge summary - Discharge Diagnosis/Problem(s) (1) Acute hypoxemic respiratory failure due to COVID-19 SNOMED Code(s): 496324653 ICD Code: U07.1 - COVID-19; J96.01 - ACUTE RESPIRATORY FAILURE WITH HYPOXIA Status: Acute Priority: High Current Visit: Yes (2) CAP (community acquired pneumonia) SNOMED Code(s): 054833696 ICD Code: J18.9 - PNEUMONIA, UNSPECIFIED ORGANISM Status: Resolved Priority: High Current Visit: Yes Qualifiers: Laterality: unspecified laterality Qualified Code(s): J18.9 - Pneumonia, unspecified organism (3) Hypokalemia SNOMED Code(s): 75804191 ICD Code: E87.6 - HYPOKALEMIA Status: Resolved Priority: High Current Visit: Yes (4) Hypomagnesemia SNOMED Code(s): 889715810 ICD Code: E83.42 - HYPOMAGNESEMIA Status: Acute Priority: High Current Visit: Yes (5) RICK (acute kidney injury) SNOMED Code(s): 81965697, 70586717 ICD Code: N17.9 - ACUTE KIDNEY FAILURE, UNSPECIFIED Status: Resolved Current Visit: Yes (6) Elevated troponin I level SNOMED Code(s): 231727239 ICD Code: R77.8 - OTHER SPECIFIED ABNORMALITIES OF PLASMA PROTEINS Status: Acute Priority: Low Current Visit: Yes (7) Hypoalbuminemia SNOMED Code(s): 301817263 ICD Code: E88.09 - OTH DISORDERS OF PLASMA-PROTEIN METABOLISM, NEC Status: Chronic Priority: Medium Current Visit: Yes (8) Vitamin D deficiency SNOMED Code(s): 83179168 ICD Code: E55.9 - VITAMIN D DEFICIENCY, UNSPECIFIED Status: Acute Priorit y: High Current Visit: Yes (9) HTN (hypertension) SNOMED Code(s): 75099937 ICD Code: I10 - ESSENTIAL (PRIMARY) HYPERTENSION Status: Chronic Priority: Medium Current Visit: Yes Qualifiers: Hypertension type: unspecified Qualified Code(s): I10 - Essential (primary) hypertension (10) Type II diabetes mellitus SNOMED Code(s): 65895752 ICD Code: E11.9 - TYPE 2 DIABETES MELLITUS WITHOUT COMPLICATIONS Status: Chronic Priority: High Current Visit: Yes Qualifiers: Diabetes 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 -Recommend recheck CBC, CMP, Magnesium at that visit -Patients magnesium was low here and she was placed on BID 400mg supplementation -Potassium was low here as was supplemented for 4 days after discharge -BP meds were adjusted - patient instructed to check BP BID and bring with to follow-up Hospital Course: This is an 85-year-old female who was admitted on 09/30/2020 due to COVID-19 pneumonia and acute on chronic hypoxemic respiratory failure. She was originally given Regeneron monoclonal antibody in the emergency room prior to t he decision be made for her to be admitted. She was started on Lovenox. Was requiring 2 L of oxygen on admission. Chest x-ray was repeated and showed a right midlung infiltrate or developing pneumonia. WBC increased so blood cultures were obtained. She was started on Rocephin 2 g daily and azithromycin 500 for 3 days. Potassium and magnesium were supplemented. GFR did improve. Troponin was mildly elevated but did remain stable. Dietary was consulted. Vitamin D was obtained and was found to be low and this was supplemented. Blood pressures were variable and she was noted to have an episode of hypotension requiring IV fluids. She continued to improve while here. She was able to be weaned off oxygen however she was noted to desaturate at night, likely secondary to her COVID-19 infection. Respiratory therapy did perform an overnight pulse oximetry on her and she qualified for 1 L while sleeping at night. She was noted to have episodes of tachycardia throughout her stay. Per the patient she has had issues with this in the past. This is likely exacerbated by her COVID- 19 infection as well. She was started on 25 mg twice daily metoprolol tartrate. She work with PT and OT who are recommending resumption of home health services. She has continued to improve. She will be discharged home with home health services today. She is reportedly going to stay with her family until she is feeling better. She has been utilizing incentive spirometry and Acapella while here and she was instructed to continue this for 1 to 2 weeks or until symptoms resolve. She was discharged on 25 mg p.o. every 12-hour metoprolol tartrate as mentioned prior. She will be discharged on 3 days of 400 mg p.o. daily magnesium as she was requiring supplementation while here. She will be di scharged on 5000 unit p.o. vitamin D. Given her episodes of hypotension and concerns over patient's fluid balance home diuretics were reviewed. Her HCTZ lisinopril combo will be discontinued and she will be discharged on a smaller dose of 10 mg p.o. daily lisinopril. Home medications were otherwise continued. Recommend follow-up with primary care provider within 7 to 10 days of discharge. Recommend repeat CBC, CMP, magnesium and considering repeat chest x- ray at that visit. Pay special attention to patient's magnesium and potassium is a have been low here. She was advised to continue isolation/quarantine for total of 20 days from onset of symptoms. She was advised that a [facility] rn case manager will likely contact her after discharge. - Patient Instructions Diet: Diabetic Diet Activity: As Tolerated Driving: Do Not Drive Showering/Bathing: May Shower Notify Provider of: Fever, Increased Pain, Nausea and/or Vomiting Other/Special Instructions: Follow-up with primary care provider within 7-10 days of discharge, sooner if needed. You completed your antibiotic therapy for pneumonia while here. You will not be prescribed anything more at discharge. Your oxygen saturations drop overnight. Wear 1L of oxygen at bedtime. Prescription was sent to [facility] to set you up for home oxygen. Resume home medications as directed. Your magnesum has been low. You will be sent a prescription for this. Take this daily a day as prescribed for 3 days. Your primary care provider should re-check this when you follow-up with them. We discontinued your combination lisinopril and hydrochlorothiazied pill. You will be prescribed just a lisinopril pill at a lower dose than before. Take your blood pressure twice daily and record it in a journal. Bring this journal with to all medical appointments. If you do not have a blood pressure cuff you may obtain one at [employer], any pharmacy, [employer], etc. You were found to be COVID-19 positive while here. Continue isolation/quarantine for 20 days total from onset of your symptoms. You many be contacted by a rn case manager from the [facility]. Follow their directions as instructed. Continue to utilize your incentive spirometer (clear/blue device you inhale through) and acapella (green tube you blow through) for 1-2 more weeks or until symptoms resolve. Check blood sugars QID AC and Bedtime. Should symptoms return or worsen contact primary care provider or return to the Emergency Department. - Discharge Plan *PRESCRIPTION DRUG MONITORING PROGRAM REVIEWED*: No *COPY OF PRESCRIPTION DRUG MONITORING REPORT IN PATIENT ECHO: No Prescriptions/Med Rec: lisinopriL [Lisinopril] 10 mg PO DAILY #20 tablet Metoprolol Tartrate [Lopressor] 25 mg PO Q12H #40 tablet Magnesium Oxide 400 mg PO DAILY #3 tablet Cholecalciferol (Vitamin D3) [Vitamin D3] 5,000 unit PO DAILY #20 cap Home Medications: Home Meds Amitriptyline [Elavil] 25 mg PO BEDTIME 09/30/20 [History] Brimonidine Tartrate [Brimonidine Tartrate 0.2% Ophth Soln] 1 drop EYEBOTH BID 09/30/20 [History] metFORMIN [Glucophage] 500 mg PO DAILY 09/30/20 [History] traMADol [Ultram] 50 - 100 mg PO Q6H PRN 09/30/20 [History] Cholecalciferol (Vitamin D3) [Vitamin D3] 5,000 unit PO DAILY #20 cap 10/07/20 [Rx] Metoprolol Tartrate [Lopressor] 25 mg PO Q12H #40 tablet 10/07/20 [Rx] lisinopriL [Lisinopril] 10 mg PO DAILY #20 tablet 10/07/20 [Rx] Magnesium Oxide 400 mg PO DAILY #3 tablet 10/08/20 [Rx] Oxygen Therapy Mode: Room Air Patient Handouts: COVID-19 Frequently Asked Questions, 10 Things You Can Do to Manage Your COVID-19 Symptoms at Home - CDC, Sepsis, Diagnosis, Adult, Oximetry, Prevent the Spread of COVID-19 if You Are Sick - CDC Forms: ED Department Discharge Referrals: Norma Faria NP [Primary Care Provider] - 10/15/20 11:00 am (please attend the scheduled follow up appointment as listed with your primary care provider.) - Discharge Summary/Plan Comment DC Time >30 min.: Yes (45 mins ) - General Info Date of Service: 10/08/20 Functional Status: Reports: Pain Controlled, Tolerating Diet, Ambulating, Urinating, Incentive Spirometry, Other (acapella ). Denies: New Symptoms - Review of Systems General: Reports: No Symptoms, Weakness (improved ). Denies: Fever, Fatigue, Malaise, Chills HEENT: Reports: No Symptoms. Denies: Eye Pain, Headaches, Sore Throat Pulmonary: Reports: No Symptoms. Denies: Shortness of Breath, Cough, Wheezing Cardiovascular: Reports: No Symptoms. Denies: Chest Pain, Edema Gastrointestinal: Reports: Diarrhea (stable ). Denies: Abdominal Pain, Constipation, Nausea, Vomiting Genitourinary: Reports: No Symptoms. Denies: Pain Musculoskeletal: Reports: Joint Pain (Bilateral knees ) Skin: Reports: No Symptoms. Denies: Cyanosis Neurological: Reports: Pre-Existing Deficit (Utilized walker before hospitalizatoin ), Difficulty Walking, Weakness, Gait Disturbance. Denies: Confusion Psychiatric: Reports: No Symptoms - Patient Data Vitals - Most Recent: Last Vital Signs Temp 98.0 F 10/07/20 08:00 Pulse 91 10/07/20 08:00 Resp 18 10/07/20 08:00 BP 136/85 10/07/20 08:00 Pulse Ox 96 10/07/20 08:00 Weight - Most Recent: 146 lb 8 oz I&O - Last 24 hours: Intake & Output 10/06/20 10/07/20 10/07/20 22:59 06:59 14:59 Intake Total 1090 300 Output Total 0 600 Balance 1090 -300 Lab Results - Last 24 hrs: Laboratory Results - last 24 hr 10/06/20 10/06/20 10/06/20 Range/Units 11:30 12:22 17:32 WBC (3.98-10.04) K/mm3 RBC (3.98-5.22) M/mm3 Hgb (11.2-15.7) gm/dl Hct (34.1-44.9) % MCV (79.4-94.8) fl MCH (25.6-32.2) pg MCHC (32.2-35.5) g/dl RDW Std Deviation (36.4-46.3) fL Plt Count (182-369) K/mm3 MPV (9.4-12.3) fl Neut % (Auto) (34.0-71.1) % Lymph % (Auto) (19.3-51.7) % Will % (Auto) (4.7-12.5) % Eos % (Auto) (0.7-5.8) Baso % (Auto) (0.1-1.2) % Neut # (Auto) (1.56-6.13) K/mm3 Lymph # (Auto) (1.18-3.74) K/mm3 Will # (Auto) (0.24-0.36) K/mm3 Eos # (Auto) (0.04-0.36) K/mm3 Baso # (Auto) (0.01-0.08) K/mm3 Sodium (136-145) mEq/L Potassium (3.5-5.1) mEq/L Chloride (98-107) mEq/L Carbon Dioxide (21-32) mEq/L Anion Gap (5-15) BUN (7-18) mg/dL Creatinine (0.55-1.02) mg/dL Est Cr Clr Drug Dosing mL/min Estimated GFR (MDRD) (>60) mL/min BUN/Creatinine Ratio (14-18) Glucose 303 H (83-115) mg/dL POC Glucose 400 H 83 (83-110) mg/dL Calcium (8.5-10.1) mg/dL Magnesium (1.8-2.4) mg/dl 10/07/20 10/07/20 10/07/20 Range/Units 06:54 06:54 06:55 WBC 9.69 (3.98-10.04) K/mm3 RBC 3.45 L (3.98-5.22) M/mm3 Hgb 9.4 L (11.2-15.7) gm/dl Hct 30.1 L (34.1-44.9) % MCV 87.2 (79.4-94.8) fl MCH 27.2 (25.6-32.2) pg MCHC 31.2 L (32.2-35.5) g/dl RDW Std Deviation 46.1 (36.4-46.3) fL Plt Count 512 H D (182-369) K/mm3 MPV 9.7 (9.4-12.3) fl Neut % (Auto) 75.1 H (34.0-71.1) % Lymph % (Auto) 10.4 L (19.3-51.7) % Will % (Auto) 11.9 (4.7-12.5) % Eos % (Auto) 1.7 (0.7-5.8) Baso % (Auto) 0.1 (0.1-1.2) % Neut # (Auto) 7.28 H (1.56-6.13) K/mm3 Lymph # (Auto) 1.01 L (1.18-3.74) K/mm3 Will # (Auto) 1.15 H (0.24-0.36) K/mm3 Eos # (Auto) 0.16 (0.04-0.36) K/mm3 Baso # (Auto) 0.01 (0.01-0.08) K/mm3 Sodium 143 (136-145) mEq/L Potassium 3.2 L (3.5-5.1) mEq/L Chloride 104 (98-107) mEq/L Carbon Dioxide 29 (21-32) mEq/L Anion Gap 13.2 (5-15) BUN 15 (7-18) mg/dL Creatinine 0.8 (0.55-1.02) mg/dL Est Cr Clr Drug Dosing 46.19 mL/min Estimated GFR (MDRD) > 60 (>60) mL/min BUN/Creatinine Ratio 18.8 H (14-18) Glucose 118 H (83-115) mg/dL POC Glucose 135 H (83-110) mg/dL Calcium 8.5 (8.5-10.1) mg/dL Magnesium 1.5 L (1.8-2.4) mg/dl EMLISSA Results - Last 24 hrs: Microbiology 09/30/20 15:15 Aerobic Blood Culture - Preliminary Blood - Venous - Lab Draw NO GROWTH AFTER 6 DAYS Anaerobic Blood Culture - Preliminary NO GROWTH AFTER 6 DAYS 09/30/20 15:05 Aerobic Blood Culture - Preliminary Blood - Venous NO GROWTH AFTER 6 DAYS Anaerobic Blood Culture - Preliminary NO GROWTH AFTER 6 DAYS Med Orders - Current: Current Medications Acetaminophen (Tylenol) 650 mg RECTAL Q6H PRN PRN Reason: Pain (mild 1-3) Acetaminophen (Tylenol) 650 mg PO Q4H PRN PRN Reason: Pain Last Admin: 10/07/20 05:12 Dose: 650 mg Documented by: Albuterol/Ipratropium (Duoneb 3.0-0.5 Mg/3 Ml) 3 ml NEB Q4H PRN PRN Reason: Shortness Of Breath/wheezing Benzocaine/Menthol (Cepacol Sore Throat) 1 lozenge MUCMEM Q2HR PRN PRN Reason: Sore Throat Last Admin: 10/02/20 20:23 Dose: 1 lozenge Documented by: Brimonidine Tartrate (Alphagan 0.2% Ophth Soln) 0 ml EYEBOTH BID [facility] Last Admin: 10/07/20 09:36 Dose: 1 drop Documented by: Cholecalciferol (Vitamin D3) 10,000 unit PO DAILY [facility] Last Admin: 10/07/20 09:37 Dose: 10,000 unit Documented by: Docusate Sodium (Colace) 100 mg PO BID PRN PRN Reason: Constipation Enoxaparin Sodium (Lovenox) 40 mg SUBCUT DAILY [facility] Last Admin: 10/07/20 09:35 Dose: 40 mg Documented by: Famotidine (Pepcid) 20 mg PO BEDTIME [facility] Last Admin: 10/06/20 21:51 Dose: 20 mg Documented by: Hydralazine HCl (Apresoline) 10 mg IVPUSH Q4H PRN PRN Reason: Hypertension Promethazine HCl 12.5 mg/ (Sodium Chloride) 50.5 mls @ 100 mls/hr IV Q6H PRN PRN Reason: Nausea/Vomiting Magnesium Sulfate 4 gm/ Premix 50 mls @ 12.5 mls/hr IV ONETIME ONE Stop: 10/07/20 12:30 Last Admin: 10/07/20 09:31 Dose: 12.5 mls/hr Documented by: Insulin Human Lispro (Humalog) 0 unit SUBCUT QIDACANDBED [facility]; Protocol Last Admin: 10/07/20 07:05 Dose: Not Given Documented by: Magnesium Oxide (Magnesium Oxide) 400 mg PO BID [facility] Last Admin: 10/07/20 09:37 Dose: 400 mg Documented by: Metoprolol Tartrate (Lopressor) 5 mg IVPUSH Q6H PRN PRN Reason: Tachycardia Oxycodone HCl (Oxycodone) 5 mg PO Q6H PRN PRN Reason: Pain (moderate 4-6) Last Admin: 10/07/20 05:13 Dose: 5 mg Documented by: Potassium Chloride (Klor-Con M20) 40 meq PO DAILY [facility] Last Admin: 10/07/20 09:37 Dose: 40 meq Documented by: Saccharomyces Boulardii (Florastor) 500 mg PO BID [facility] Last Admin: 10/07/20 09:37 Dose: 500 mg Documented by: Simvastatin (Zocor) 20 mg PO BEDTIME [facility] Last Admin: 10/06/20 21:51 Dose: 20 mg Documented by: Sodium Chloride (Saline Flush) 10 ml FLUSH ASDIRECTED PRN PRN Reason: Keep Vein Open Last Admin: 09/30/20 15:05 Dose: 10 ml Documented by: Discontinued Medications Acetaminophen (Tylenol) 650 mg PO NOW ONE Stop: 09/30/20 20:24 Last Admin: 09/30/20 20:33 Dose: 650 mg Documented by: Al Hydroxide/Mg Hydroxide (Mag-Al Plus) 30 ml PO ONETIME ONE Stop: 10/03/20 18:14 Last Admin: 10/03/20 18:21 Dose: 30 ml Documented by: Amitriptyline HCl (Elavil) 25 mg PO BEDTIME [facility] Last Admin: 10/01/20 21:11 Dose: 25 mg Documented by: Aspirin (Halfprin) 81 mg PO DAILY [facility] Azithromycin (Zithromax) 500 mg PO DAILY [facility] Stop: 10/04/20 09:01 Last Admin: 10/04/20 09:39 Dose: 500 mg Documented by: Diphenhydramine HCl (Benadryl) 50 mg IVPUSH ONETIME PRN PRN Reason: hypersensitivity reaction Enoxaparin Sodium (Lovenox) 60 mg SUBCUT DAILY [facility] Last Admin: 10/01/20 03:48 Dose: Not Given Documented by: Enoxaparin Sodium (Lovenox) 60 mg SUBCUT DAILY [facility] Last Admin: 10/01/20 00:58 Dose: 60 mg Documented by: Enoxaparin Sodium (Lovenox) 60 mg SUBCUT BEDTIME [facility] Epinephrine HCl (Adrenalin) 0.3 mg IM ONETIME PRN PRN Reason: hypersensitivity reaction Famotidine (Pepcid) 20 mg IVPUSH ONETIME PRN PRN Reason: hypersensitivity reaction Last Admin: 10/01/20 01:09 Dose: 20 mg Documented by: Famotidine (Pepcid) 20 mg PO BID [facility] Last Admin: 10/01/20 22:03 Dose: 20 mg Documented by: Heparin Sodium (Porcine) (Heparin Sodium) 5,000 units SUBCUT Q8H [facility] Last Admin: 10/01/20 03:48 Dose: Not Given Documented by: Hydrochlorothiazide (Hydrochlorothiazide) 25 mg PO BEDTIME [facility] Last Admin: 10/01/20 21:11 Dose: 25 mg Documented by: Magnesium Sulfate 2 gm/ Premix 50 mls @ 25 mls/hr IV Q1H [facility] Stop: 09/30/20 18:29 Last Admin: 09/30/20 20:43 Dose: Not Given Documented by: Non-Formulary Medication 1,200 mg/ Non-Formulary Medication 1,200 mg/ Sodium Chloride 250 mls @ 250 mls/hr IV ONETIME ONE Stop: 09/30/20 17:23 Last Admin: 09/30/20 17:06 Dose: 250 mls/hr Documented by: Sodium Chloride (Normal Saline) 1,000 mls @ 500 mls/hr IV ONETIME ONE Stop: 09/30/20 18:24 Last Admin: 09/30/20 16:41 Dose: 500 mls/hr Documented by: Sodium Chloride (Normal Saline) 1,000 mls @ 500 mls/hr IV ONETIME ONE Stop: 09/30/20 18:31 Last Admin: 09/30/20 18:20 Dose: 500 mls/hr Documented by: Sodium Chloride (Normal Saline) 1,000 mls @ 50 mls/hr IV ASDIRECTED [facility] Last Admin: 10/01/20 01:20 Dose: 50 mls/hr Documented by: Sodium Chloride (Normal Saline) 500 mls @ 999 mls/hr IV .BOLUS ONE Stop: 09/30/20 23:09 Last Admin: 09/30/20 22:47 Dose: 999 mls/hr Documented by: Ceftriaxone Sodium 1 gm/ (Sodium Chloride) 100 mls @ 200 mls/hr IV Q24H [facility] Last Admin: 09/30/20 22:55 Dose: 200 mls/hr Documented by: Norepinephrine Bitartrate 4 mg (/ Dextrose/Water) 250 mls @ 7.5 mls/hr IV TITRATE [facility]; Protocol Last Titration: 10/01/20 08:43 Dose: 0 mcg/min, 0 mls/hr Documented by: Magnesium Sulfate 4 gm/ Premix 50 mls @ 12.5 mls/hr IV ONETIME ONE Stop: 10/01/20 14:36 Last Admin: 10/01/20 10:58 Dose: 12.5 mls/hr Documented by: Ceftriaxone Sodium 2 gm/ (Sodium Chloride) 100 mls @ 200 mls/hr IV Q24H [facility] Last Admin: 10/05/20 20:27 Dose: 200 mls/hr Documented by: Lactated Ringer's (Ringers, Lactated) 1,000 mls @ 999 mls/hr IV .BOLUS ONE Stop: 10/02/20 01:25 Last Admin: 10/02/20 00:44 Dose: 999 mls/hr Documented by: Magnesium Sulfate 4 gm/ Premix 50 mls @ 12.5 mls/hr IV ONETIME ONE Stop: 10/03/20 19:29 Last Admin: 10/03/20 15:23 Dose: 12.5 mls/hr Documented by: Insulin Human Lispro (Humalog) 0 unit SUBCUT QIDACANDBED [facility]; Protocol Last Admin: 10/03/20 12:17 Dose: 4 unit Documented by: Magnesium Oxide (Magnesium Oxide) 800 mg PO ONETIME ONE Stop: 09/30/20 16:46 Last Admin: 09/30/20 17:18 Dose: 800 mg Documented by: Methylprednisolone Sodium Succinate (Solu-Medrol) 125 mg IVPUSH ONETIME PRN PRN Reason: hypersensitivity reaction Morphine Sulfate (Morphine) 2 mg IVPUSH Q4H PRN PRN Reason: Pain (severe 7-10) Stop: 10/01/20 21:41 Last Admin: 09/30/20 22:21 Dose: 2 mg Documented by: Ondansetron HCl (Zofran) 4 mg IVPUSH ONETIME ONE Stop: 09/30/20 19:55 Last Admin: 09/30/20 20:09 Dose: 4 mg Documented by: Potassium Chloride (Klor-Con M20) 40 meq PO ONETIME ONE Stop: 10/01/20 10:37 Last Admin: 10/01/20 10:58 Dose: 40 meq Documented by: Potassium Chloride (Klor-Con M20) 40 meq PO ONETIME ONE Stop: 10/02/20 10:35 Last Admin: 10/02/20 11:00 Dose: 40 meq Documented by: Sodium Chloride (Saline Flush) 30 ml FLUSH ASDIRECTED [facility] Last Admin: 09/30/20 18:15 Dose: 30 ml Documented by: Tramadol HCl (Ultram) 100 mg PO ONETIME ONE Stop: 09/30/20 20:03 Last Admin: 09/30/20 20:43 Dose: Not Given Documented by: - Exam Quality Assessment: Reports: DVT Prophylaxis. Denies: Supplemental Oxygen, Urine Catheter General: Reports: Alert, Oriented, Cooperative, No Acute Distress HEENT: Reports: Pupils Equal, Pupils Reactive, Mucous Membr. Moist/[place] Neck: Reports: Supple, Trachea Midline Lungs: Reports: Clear to Auscultation, Normal Respiratory Effort, Decreased Breath Sounds Cardiovascular: Reports: Regular Rate, Regular Rhythm GI/Abdominal Exam: Normal Bowel Sounds, Soft, Non-Tender, No Distention (Female) Exam: Deferred Rectal (Female) Exam: Deferred Back Exam: Reports: Normal Inspection, Full Range of Motion Extremities: Normal Inspection, Normal Range of Motion, Non-Tender, No Pedal Edema, Normal Capillary Refill Skin: Reports: Warm, Dry, Intact Neurological: Reports: No New Focal Deficit Psy/Mental Status: Reports: Alert, Normal Affect, Normal Mood
--- NOTE | 2020-10-07 12:15 | PCM.PN ---
- General Info Date of Service: 10/07/20 Subjective Update: In to see Jaimee. Plan was for discharge today however patient had episode of tachycardia up in the 170s while having a bowel movement and has reportedly had episodes of increased heart rate on and off since admission. Per the patient this is her norm and has some pain she has been dealing with for a while. We will start 25 mg twice daily metoprolol tartrate. Unfortunately patient was unable to complete overnight pulse oximetry last night and we will therefore try again tonight. She will likely require overnight oxygen but her saturations have been mostly good throughout the day. She continues to utilize her incentive spirometer and Acapella. She has completed her community-acquired pneumonia treatment. Plan will be to discharge tomorrow morning. Functional Status: Reports: Pain Controlled, Tolerating Diet, Ambulating, Urinating, Incentive Spirometry, Other (Acapella ). Denies: New Symptoms - Review of Systems General: Reports: Weakness (improving ), Fatigue (Has not been sleeping well ). Denies: Fever, Malaise, Chills HEENT: Reports: No Symptoms. Denies: Headaches, Sore Throat Pulmonary: Reports: No Symptoms. Denies: Shortness of Breath, Cough, Sputum, Wheezing Cardiovascular: Reports: No Symptoms. Denies: Chest Pain, Palpitations, Dyspnea on Exertion, Edema Gastrointestinal: Reports: No Symptoms. Denies: Abdominal Pain, Constipation, Diarrhea, Nausea, Vomiting Genitourinary: Reports: No Symptoms. Denies: Pain Musculoskeletal: Reports: Joint Pain (Bilateral knee - chronic ) Skin: Reports: No Symptoms. Denies: Cyanosis Neurological: Reports: No Symptoms, Pre-Existing Deficit (Walks with a walker), Difficulty Walking, Weakness, Gait Disturbance. Denies: Confusion Psychiatric: Reports: No Symptoms - Patient Data Vitals - Most Recent: Last Vital Signs Temp 97.5 F 10/07/20 11:53 Pulse 90 10/07/20 11:53 Resp 20 10/07/20 11:53 BP 130/62 10/07/20 11:53 Pulse Ox 98 10/07/20 11:53 Weight - Most Recent: 146 lb 8 oz I&O - Last 24 Hours: Intake & Output 10/06/20 10/07/20 10/07/20 22:59 06:59 14:59 Intake Total 1090 300 500 Output Total 0 600 Balance 1090 -300 500 Lab Results Last 24 Hours: Laboratory Results - last 24 hr 10/06/20 10/06/20 10/06/20 Range/Units 11:30 12:22 17:32 WBC (3.98-10.04) K/mm3 RBC (3.98-5.22) M/mm3 Hgb (11.2-15.7) gm/dl Hct (34.1-44.9) % MCV (79.4-94.8) fl MCH (25.6-32.2) pg MCHC (32.2-35.5) g/dl RDW Std Deviation (36.4-46.3) fL Plt Count (182-369) K/mm3 MPV (9.4-12.3) fl Neut % (Auto) (34.0-71.1) % Lymph % (Auto) (19.3-51.7) % [place] % (Auto) (4.7-12.5) % Eos % (Auto) (0.7-5.8) Baso % (Auto) (0.1-1.2) % Neut # (Auto) (1.56-6.13) K/mm3 Lymph # (Auto) (1.18-3.74) K/mm3 [place] # (Auto) (0.24-0.36) K/mm3 Eos # (Auto) (0.04-0.36) K/mm3 Baso # (Auto) (0.01-0.08) K/mm3 Sodium (136-145) mEq/L Potassium (3.5-5.1) mEq/L Chloride (98-107) mEq/L Carbon Dioxide (21-32) mEq/L Anion Gap (5-15) BUN (7-18) mg/dL Creatinine (0.55-1.02) mg/dL Est Cr Clr Drug Dosing mL/min Estimated GFR (MDRD) (>60) mL/min BUN/Creatinine Ratio (14-18) Glucose 303 H (83-115) mg/dL POC Glucose 400 H 83 (83-110) mg/dL Calcium (8.5-10.1) mg/dL Magnesium (1.8-2.4) mg/dl 10/07/20 10/07/20 10/07/20 Range/Units 06:54 06:54 06:55 WBC 9.69 (3.98-10.04) K/mm3 RBC 3.45 L (3.98-5.22) M/mm3 Hgb 9.4 L (11.2-15.7) gm/dl Hct 30.1 L (34.1-44.9) % MCV 87.2 (79.4-94.8) fl MCH 27.2 (25.6-32.2) pg MCHC 31.2 L (32.2-35.5) g/dl RDW Std Deviation 46.1 (36.4-46.3) fL Plt Count 512 H D (182-369) K/mm3 MPV 9.7 (9.4-12.3) fl Neut % (Auto) 75.1 H (34.0-71.1) % Lymph % (Auto) 10.4 L (19.3-51.7) % [place] % (Auto) 11.9 (4.7-12.5) % Eos % (Auto) 1.7 (0.7-5.8) Baso % (Auto) 0.1 (0.1-1.2) % Neut # (Auto) 7.28 H (1.56-6.13) K/mm3 Lymph # (Auto) 1.01 L (1.18-3.74) K/mm3 [place] # (Auto) 1.15 H (0.24-0.36) K/mm3 Eos # (Auto) 0.16 (0.04-0.36) K/mm3 Baso # (Auto) 0.01 (0.01-0.08) K/mm3 Sodium 143 (136-145) mEq/L Potassium 3.2 L (3.5-5.1) mEq/L Chloride 104 (98-107) mEq/L Carbon Dioxide 29 (21-32) mEq/L Anion Gap 13.2 (5-15) BUN 15 (7-18) mg/dL Creatinine 0.8 (0.55-1.02) mg/dL Est Cr Clr Drug Dosing 46.19 mL/min Estimated GFR (MDRD) > 60 (>60) mL/min BUN/Creatinine Ratio 18.8 H (14-18) Glucose 118 H (83-115) mg/dL POC Glucose 135 H (83-110) mg/dL Calcium 8.5 (8.5-10.1) mg/dL Magnesium 1.5 L (1.8-2.4) mg/dl Anthony Results Last 24 Hours: Microbiology 09/30/20 15:15 Aerobic Blood Culture - Preliminary Blood - Venous - Lab Draw NO GROWTH AFTER 6 DAYS Anaerobic Blood Culture - Preliminary NO GROWTH AFTER 6 DAYS 09/30/20 15:05 Aerobic Blood Culture - Preliminary Blood - Venous NO GROWTH AFTER 6 DAYS Anaerobic Blood Culture - Preliminary NO GROWTH AFTER 6 DAYS Med Orders - Current: Current Medications Acetaminophen (Tylenol) 650 mg RECTAL Q6H PRN PRN Reason: Pain (mild 1-3) Acetaminophen (Tylenol) 650 mg PO Q4H PRN PRN Reason: Pain Last Admin: 10/07/20 05:12 Dose: 650 mg Documented by: Albuterol/Ipratropium (Duoneb 3.0-0.5 Mg/3 Ml) 3 ml NEB Q4H PRN PRN Reason: Shortness Of Breath/wheezing Benzocaine/Menthol (Cepacol Sore Throat) 1 lozenge MUCMEM Q2HR PRN PRN Reason: Sore Throat Last Admin: 10/02/20 20:23 Dose: 1 lozenge Documented by: Brimonidine Tartrate (Alphagan 0.2% Oph Sol) 0 ml EYEBOTH BID [facility] Last Admin: 10/07/20 09:36 Dose: 1 drop Documented by: Cholecalciferol (Vitamin D3) 10,000 unit PO DAILY [facility] Last Admin: 10/07/20 09:37 Dose: 10,000 unit Documented by: Docusate Sodium (Colace) 100 mg PO BID PRN PRN Reason: Constipation Enoxaparin Sodium (Lovenox) 40 mg SUBCUT DAILY [facility] Last Admin: 10/07/20 09:35 Dose: 40 mg Documented by: Famotidine (Pepcid) 20 mg PO BEDTIME [facility] Last Admin: 10/06/20 21:51 Dose: 20 mg Documented by: Hydralazine HCl (Apresoline) 10 mg IVPUSH Q4H PRN PRN Reason: Hypertension Promethazine HCl 12.5 mg/ (Sodium Chloride) 50.5 mls @ 100 mls/hr IV Q6H PRN PRN Reason: Nausea/Vomiting Magnesium Sulfate 4 gm/ Premix 50 mls @ 12.5 mls/hr IV ONETIME ONE Stop: 10/07/20 12:30 Last Admin: 10/07/20 09:31 Dose: 12.5 mls/hr Documented by: Insulin Human Lispro (Humalog) 0 unit SUBCUT QIDACANDBED [facility]; Protocol Last Admin: 10/07/20 07:05 Dose: Not Given Documented by: Magnesium Oxide (Magnesium Oxide) 400 mg PO BID [facility] Last Admin: 10/07/20 09:37 Dose: 400 mg Documented by: Metoprolol Tartrate (Lopressor) 5 mg IVPUSH Q6H PRN PRN Reason: Tachycardia Last Admin: 10/07/20 09:59 Dose: 5 mg Documented by: Metoprolol Tartrate (Lopressor) 25 mg PO Q12H ROSEANNA Oxycodone HCl (Oxycodone) 5 mg PO Q6H PRN PRN Reason: Pain (moderate 4-6) Last Admin: 10/07/20 05:13 Dose: 5 mg Documented by: Potassium Chloride (Klor-Con M20) 40 meq PO DAILY [facility] Last Admin: 10/07/20 09:37 Dose: 40 meq Documented by: Saccharomyces Boulardii (Florastor) 500 mg PO BID [facility] Last Admin: 10/07/20 09:37 Dose: 500 mg Documented by: Simvastatin (Zocor) 20 mg PO BEDTIME [facility] Last Admin: 10/06/20 21:51 Dose: 20 mg Documented by: Sodium Chloride (Saline Flush) 10 ml FLUSH ASDIRECTED PRN PRN Reason: Keep Vein Open Last Admin: 09/30/20 15:05 Dose: 10 ml Documented by: Discontinued Medications Acetaminophen (Tylenol) 650 mg PO NOW ONE Stop: 09/30/20 20:24 Last Admin: 09/30/20 20:33 Dose: 650 mg Documented by: Al Hydroxide/Mg Hydroxide (Mag-Al Plus) 30 ml PO ONETIME ONE Stop: 10/03/20 18:14 Last Admin: 10/03/20 18:21 Dose: 30 ml Documented by: Amitriptyline HCl (Elavil) 25 mg PO BEDTIME [facility] Last Admin: 10/01/20 21:11 Dose: 25 mg Documented by: Aspirin (Halfprin) 81 mg PO DAILY ROSEANNA Azithromycin (Zithromax) 500 mg PO DAILY [facility] Stop: 10/04/20 09:01 Last Admin: 10/04/20 09:39 Dose: 500 mg Documented by: Diphenhydramine HCl (Benadryl) 50 mg IVPUSH ONETIME PRN PRN Reason: hypersensitivity reaction Enoxaparin Sodium (Lovenox) 60 mg SUBCUT DAILY [facility] Last Admin: 10/01/20 03:48 Dose: Not Given Documented by: Enoxaparin Sodium (Lovenox) 60 mg SUBCUT DAILY [facility] Last Admin: 10/01/20 00:58 Dose: 60 mg Documented by: Enoxaparin Sodium (Lovenox) 60 mg SUBCUT BEDTIME [facility] Epinephrine HCl (Adrenalin) 0.3 mg IM ONETIME PRN PRN Reason: hypersensitivity reaction Famotidine (Pepcid) 20 mg IVPUSH ONETIME PRN PRN Reason: hypersensitivity reaction Last Admin: 10/01/20 01:09 Dose: 20 mg Documented by: Famotidine (Pepcid) 20 mg PO BID [facility] Last Admin: 10/01/20 22:03 Dose: 20 mg Documented by: Heparin Sodium (Porcine) (Heparin Sodium) 5,000 units SUBCUT Q8H [facility] Last Admin: 10/01/20 03:48 Dose: Not Given Documented by: Hydrochlorothiazide (Hydrochlorothiazide) 25 mg PO BEDTIME [facility] Last Admin: 10/01/20 21:11 Dose: 25 mg Documented by: Magnesium Sulfate 2 gm/ Premix 50 mls @ 25 mls/hr IV Q1H [facility] Stop: 09/30/20 18:29 Last Admin: 09/30/20 20:43 Dose: Not Given Documented by: Non-Formulary Medication 1,200 mg/ Non-Formulary Medication 1,200 mg/ Sodium Chloride 250 mls @ 250 mls/hr IV ONETIME ONE Stop: 09/30/20 17:23 Last Admin: 09/30/20 17:06 Dose: 250 mls/hr Documented by: Sodium Chloride (Normal Saline) 1,000 mls @ 500 mls/hr IV ONETIME ONE Stop: 09/30/20 18:24 Last Admin: 09/30/20 16:41 Dose: 500 mls/hr Documented by: Sodium Chloride (Normal Saline) 1,000 mls @ 500 mls/hr IV ONETIME ONE Stop: 09/30/20 18:31 Last Admin: 09/30/20 18:20 Dose: 500 mls/hr Documented by: Sodium Chloride (Normal Saline) 1,000 mls @ 50 mls/hr IV ASDIRECTED [facility] Last Admin: 10/01/20 01:20 Dose: 50 mls/hr Documented by: Sodium Chloride (Normal Saline) 500 mls @ 999 mls/hr IV .BOLUS ONE Stop: 09/30/20 23:09 Last Admin: 09/30/20 22:47 Dose: 999 mls/hr Documented by: Ceftriaxone Sodium 1 gm/ (Sodium Chloride) 100 mls @ 200 mls/hr IV Q24H [facility] Last Admin: 09/30/20 22:55 Dose: 200 mls/hr Documented by: Norepinephrine Bitartrate 4 mg (/ Dextrose/Water) 250 mls @ 7.5 mls/hr IV TITRATE [facility]; Protocol Last Titration: 10/01/20 08:43 Dose: 0 mcg/min, 0 mls/hr Documented by: Magnesium Sulfate 4 gm/ Premix 50 mls @ 12.5 mls/hr IV ONETIME ONE Stop: 10/01/20 14:36 Last Admin: 10/01/20 10:58 Dose: 12.5 mls/hr Documented by: Ceftriaxone Sodium 2 gm/ (Sodium Chloride) 100 mls @ 200 mls/hr IV Q24H [facility] Last Admin: 10/05/20 20:27 Dose: 200 mls/hr Documented by: Lactated Ringer's (Ringers, Lactated) 1,000 mls @ 999 mls/hr IV .BOLUS ONE Stop: 10/02/20 01:25 Last Admin: 10/02/20 00:44 Dose: 999 mls/hr Documented by: Magnesium Sulfate 4 gm/ Premix 50 mls @ 12.5 mls/hr IV ONETIME ONE Stop: 10/03/20 19:29 Last Admin: 10/03/20 15:23 Dose: 12.5 mls/hr Documented by: Insulin Human Lispro (Humalog) 0 unit SUBCUT QIDACANDBED [facility]; Protocol Last Admin: 10/03/20 12:17 Dose: 4 unit Documented by: Magnesium Oxide (Magnesium Oxide) 800 mg PO ONETIME ONE Stop: 09/30/20 16:46 Last Admin: 09/30/20 17:18 Dose: 800 mg Documented by: Methylprednisolone Sodium Succinate (Solu-Medrol) 125 mg IVPUSH ONETIME PRN PRN Reason: hypersensitivity reaction Morphine Sulfate (Morphine) 2 mg IVPUSH Q4H PRN PRN Reason: Pain (severe 7-10) Stop: 10/01/20 21:41 Last Admin: 09/30/20 22:21 Dose: 2 mg Documented by: Ondansetron HCl (Zofran) 4 mg IVPUSH ONETIME ONE Stop: 09/30/20 19:55 Last Admin: 09/30/20 20:09 Dose: 4 mg Documented by: Potassium Chloride (Klor-Con M20) 40 meq PO ONETIME ONE Stop: 10/01/20 10:37 Last Admin: 10/01/20 10:58 Dose: 40 meq Documented by: Potassium Chloride (Klor-Con M20) 40 meq PO ONETIME ONE Stop: 10/02/20 10:35 Last Admin: 10/02/20 11:00 Dose: 40 meq Documented by: Sodium Chloride (Saline Flush) 30 ml FLUSH ASDIRECTED [facility] Last Admin: 09/30/20 18:15 Dose: 30 ml Documented by: Tramadol HCl (Ultram) 100 mg PO ONETIME ONE Stop: 09/30/20 20:03 Last Admin: 09/30/20 20:43 Dose: Not Given Documented by: - Exam Quality Assessment: DVT Prophylaxis. No: Supplemental Oxygen (requires at night ), Urine Catheter General: Alert, Oriented, Cooperative, No Acute Distress HEENT: Pupils Equal, Pupils Reactive, Mucous Membr. Moist/[place] Lungs: Clear to Auscultation, Normal Respiratory Effort, Decreased Breath Sounds. No: Rales, Rhonchi, Wheezing Cardiovascular: Regular Rate, Regular Rhythm GI/Abdominal Exam: Normal Bowel Sounds, Soft, Non-Tender, No Distention (Female) Exam: Deferred Back Exam: Normal Inspection, Decreased Range of Motion Extremities: Normal Inspection, Normal Range of Motion, Non-Tender, No Pedal Edema, Normal Capillary Refill Skin: Warm, Dry, Intact Neurological: No New Focal Deficit Psy/Mental Status: Alert, Normal Affect, Normal Mood Sepsis Event Note - Evaluation Sepsis Screening Result: No Definite Risk - Focused Exam Vital Signs: Vital Signs Temp Pulse Pulse Resp BP BP Pulse Ox 10/07/20 11:53 97.5 F 90 20 130/62 98 10/07/20 09:59 172 H 117/69 10/07/20 09:54 10/07/20 08:00 98.0 F 91 18 136/85 96 10/07/20 06:12 10/07/20 04:00 98.0 F 95 20 139/73 95 10/07/20 02:00 93 L Pulse Ox Pulse Ox 10/07/20 11:53 10/07/20 09:59 10/07/20 09:54 94 L 10/07/20 08:00 10/07/20 06:12 98 10/07/20 04:00 10/07/20 02:00 - Problem List & Annotations (1) Acute hypoxemic respiratory failure due to COVID-19 SNOMED Code(s): 336538311 Code(s): U07.1 - COVID-19; J96.01 - ACUTE RESPIRATORY FAILURE WITH HYPOXIA Status: Acute Priority: High Current Visit: Yes (2) CAP (community acquired pneumonia) SNOMED Code(s): 983900663 Code(s): J18.9 - PNEUMONIA, UNSPECIFIED ORGANISM Status: Resolved Priority: High Current Visit: Yes Qualifiers: Laterality: unspecified laterality Qualified Code(s): J18.9 - Pneumonia, unspecified organism (3) Hypokalemia SNOMED Code(s): 91593455 Code(s): E87.6 - HYPOKALEMIA Status: Acute Priority: High Current Visit: Yes (4) Hypomagnesemia SNOMED Code(s): 437112075 Code(s): E83.42 - HYPOMAGNESEMIA Status: Acute Priority: High Current Visit: Yes (5) RICK (acute kidney injury) SNOMED Code(s): 51307850, 49591765 Code(s): N17.9 - ACUTE KIDNEY FAILURE, UNSPECIFIED Status: Resolved Current Visit: Yes (6) Elevated troponin I level SNOMED Code(s): 594094568 Code(s): R77.8 - OTHER SPECIFIED ABNORMALITIES OF PLASMA PROTEINS Status: Acute Priority: Low Current Visit: Yes (7) Hypoalbuminemia SNOMED Code(s): 459763245 Code(s): E88.09 - OTH DISORDERS OF PLASMA-PROTEIN METABOLISM, NEC Status: Chronic Priority: Medium Current Visit: Yes (8) Vitamin D deficiency SNOMED Code(s): 40854552 Code(s): E55.9 - VITAMIN D DEFICIENCY, UNSPECIFIED Status: Acute Priority: High Current Visit: Yes (9) HTN (hypertension) SNOMED Code(s): 86256259 Code(s): I10 - ESSENTIAL (PRIMARY) HYPERTENSION Status: Chronic Priority: Medium Current Visit: Yes Qualifiers: Hypertension type: unspecified Qualified Code(s): I10 - Essential (primary) hypertension (10) Type II diabetes mellitus SNOMED Code(s): 62591565 Code(s): E11.9 - TYPE 2 DIABETES MELLITUS WITHOUT COMPLICATIONS Status: Chronic Priority: High Current Visit: Yes Qualifiers: Diabetes mellitus manager intermediate insulin use: without manager intermediate use - Problem List Review Problem List Initiated/Reviewed/Updated: Yes - My Orders Last 24 Hours: My Active Orders 10/06/20 15:15 Consult to Case Management/Material Flow Engineer [CONS] Routine 10/07/20 08:31 Magnesium Sulfate/Water [Magnesium Sulfate in Water 4 GM/50 ML] 4 gm Premix Bag 1 bag IV ONETIME 10/07/20 09:00 Potassium Chloride [Klor-Con M20] 40 meq PO DAILY 10/07/20 12:07 Overnight Pulse Oximetry [RC] Click to Edit 10/07/20 12:15 Metoprolol Tartrate [Lopressor] 25 mg PO Q12H 10/08/20 05:11 BASIC METABOLIC PANEL,BMP [CHEM] AM CBC WITH AUTO DIFF [HEME] AM MAGNESIUM [CHEM] AM 10/09/20 05:11 BASIC METABOLIC PANEL,BMP [CHEM] AM CBC WITH AUTO DIFF [HEME] AM MAGNESIUM [CHEM] AM 10/10/20 05:11 BASIC METABOLIC PANEL,BMP [CHEM] AM CBC WITH AUTO DIFF [HEME] AM MAGNESIUM [CHEM] AM - Plan Plan:: Assessment and plan: 09/30/2020 1. Acute on chronic hypoxic respiratory failure ABG - PCO2 33, PO2 56, SO2 86.1% pulse ox O2 therapy. Keep SpO2 > 92 2. Early pneumonia or clinical pneumonia, Covid 19? or CAP? 3. Covid 19 was positive CXR - No acute change Blood culture Sputum culture MRSA screen Ferritin 141, CRP 10.3, D-dimer 2.08 Matthew's COVID-19 monoclonal antibody was given I will not start her on antibiotics at this moment I would not like to start her on steroid at the early stage. Lovenox 60mg daily Home aspirin is on hold. Inhalers CRP and D-dimer daily 4. RICK? creatinine 1.2 on 08/12/2020 Avoid nephrotoxic meds Repeat renal function in am IVF 5. HTN Continue HCTZ 25mg daily Lisinopril 20mg daily is on hold Hydralazine prn 6. DM type 2 Metformin 500mg daily is on hold diabetic diet Insulin ss 7. GI and DVT prophylaxis: famotidine and lovenox 10/01/2020 1. Acute hypoxic respiratory failure secondary to COVID-19 Oxygen requirement significantly improved. On 1 L FiO2 via nasal cannula with oxygen saturations in the upper 90s. We will continue to wean off throughout the day. 2. Community-acquired pneumonia Repeat chest x-ray consistent with right midlung infiltrate or developing pneumonia WBC increased from 5.7-13.7. Blood culture Sputum culture MRSA screen On admission ferritin 141, CRP 10.3, D-dimer 2.08 Matthew's COVID-19 monoclonal antibody was given Increase Rocephin to 2 g daily Start azithromycin 500 mg daily for 3 days Hold off on steroids at this time since hypoxemia is improving Lovenox 40mg daily Home aspirin is on hold. Inhalers CRP and D-dimer daily 3. Hypokalemia/hypomagnesemia Potassium 3.3, magnesium 1.6 Supplement both and repeat tomorrow 4. RICK: creatinine 1.2 on 08/12/2020 -resolved Renal function improved with creatinine down from 1.0 to 1.3 Avoid nephrotoxic meds Repeat renal function in am Stop IVF 5. Elevated troponintroponin increased from 0.078-0.137. 6. Hypoalbuminemia at 2.1, down from 2.7 on admission. Dietary consult. 7. Low vitamin D14.9, start vitamin D3 10,000 units daily 8. HTN Continue HCTZ 25mg daily Lisinopril 20mg daily is on hold Follow electrolytes Hydralazine prn 9. DM type 2 Metformin 500mg daily is on hold diabetic diet Insulin ss 10. GI and DVT prophylaxis: famotidine and lovenox October 02, 2020 84-year-old with COVID-19 and acute hypoxia on day 2 of hospitalization. Patient is still on only 1 L of O2 via nasal cannula. She did receive 25 mg of hydrochlorothiazide prior to bed last night and had another several episodes in the middle the night of low blood pressures requiring a fluid bolus. This is likely secondary to both the COVID-19 and medication. Hydrochlorothiazide will be held. She did have a 3 pound weight gain and 2 g drop in her hemoglobin. This is likely delusional. Also hypokalemia secondary to the above. Potassium today was 3.3. Blood sugars continue to be well controlled on sliding scale insulin. Acute renal injury has resolved with a creatinine of 0.9 and an estimated GFR greater than 60. Magnesium was replaced yesterday. Continue to treat pneumonia as community-acquired pneumonia with Rocephin and start azithromycin. Length of stay 2-3 more days. October 03, 2020 84-year-old female with COVID-19 and hypoxemia on 0.5 L per nasal cannula today. Patient is doing well, but did have an episode of sinus tachycardia when working with physical therapy. This did resolve with a little rest. She did not require more oxygen at that time. She did not have any more episodes of hypotension. She continues azithromycin and ceftriaxone for her community- acquired pneumonia. She has been afebrile and her white count is 4.9. Acute kidney injury has resolved and her creatinine is 0.8 at this time. She is currently off all blood pressure medications. Blood sugars have been stable. She should be ready for discharge in the next couple of days. I prefer to get her on room air or at least greater than 5 days of IV antibiotics. 10/04/2020 Continues to do well. She is now on RA satting adequately. She gets tachycardia with activities and exertion but comes back down to sinus rhythm with rest. Will continue current treatment. Encourage to use IS and FV as directed. Routine AM labs. Updated her daughter about patient clinical progress. LOS > 96 hrs as she needs more time with treatment. 10/05/2020 She looks relatively well. She remains on RA satting adequately. No reports of tachycardia with exertion. Will continue current treatment. Encourage to use IS and FV as directed. Routine AM labs. Replete low electrolytes as needed. Needs re-eval by PT/OT tomorrow. She remains weak and requires some assistance to get up and ambulate. LOS > 96 hrs as she needs more time with treatment. 10/06/2020 Overall patient continues to do pretty well. Her saturations remain middle to upper 90's off of oxygen. She is noted to drop into the 80's overnight, so will order overnight pulse oximetry tonight. She reports she did not sleep well last night and is quite tired today. She has been working with PT/OT. Re-check labs in AM. Hopeful for discharge tomorrow pending continued improvement. 10/07/2020 Plan was to discharge today however patient was noted to have heart rate up into the 170s while having a bowel movement. Per ICU and nursing the patient has been having episodes of sinus tachycardia up into the 150s to 160s occasionally. Patient reports this has been an ongoing issue for her. We will start Toprol tartrate 25 mg twice daily and monitor. Otherwise patient continues to do well. She has been utilizing her incentive spirometer and Acapella. She has been requiring oxygen overnight. Plan was to obtain an overnight pulse ox last night and unfortunate there was an error with this. Plan will be to reattempt overnight pulse ox tonight to try to qualify patient for oxygen. It is felt she will likely require this as she has been quite low overnight. Potassium was low today and will be supplemented p.o. Magnesium was also low and will be supplemented IV in addition to her p.o. magnesium. Will recheck labs tomorrow morning. Plan is for discharge tomorrow pending continued improvement.
[2020-10-07] MEDS: Metoprolol Tartrate 25 MG Tab PO SCH (13:23)
[2020-10-07] MEDS: Famotidine 20 MG Tab PO SCH (21:46)
[2020-10-07] MEDS: Simvastatin 20 MG Tab PO SCH (21:46)
[2020-10-08] MEDS: Metoprolol Tartrate 25 MG Tab PO SCH ×2 (02:08→11:45)
[2020-10-08] MEDS: oxyCODONE 5 MG Tab PO PRN ×2 (08:22→14:28)
[2020-10-08] MEDS: Acetaminophen 325 MG Tab PO PRN ×2 (08:23→14:29)
[2020-10-08] MEDS: Magnesium Oxide 400 MG Tab PO SCH (08:23)
[2020-10-08] MEDS: Cholecalciferol (Vitamin D3) 5,000 UNIT Cap PO SCH (08:24)
[2020-10-08] MEDS: Saccharomyces Boulardii (Probiotic) 250 MG Cap PO SCH (08:24)
[2020-10-08] MEDS: Enoxaparin 40 MG/0.4 ML Syringe SUBCUT SCH (08:24)
[2020-10-08] MEDS: Brimonidine 0.2% Ophth Soln 5 ML Bottle EYEBOTH SCH (08:25)
[2020-10-08] MEDS: Potassium Chloride 20 MEQ Tab.ER PO SCH (08:26)
== END 2020-10-08 14:35 | disposition home health service (06) | DRG 177 ==
LOC: JD.ED 14:09 → UNDOADMIN 21:38 → JD.MS 21:38 → JD.ICU 21:39 → JD.MS 21:39 → JD.ICU 10-03 18:53 → JD.MS 10-03 18:53
PROVIDERS: ADMIT Internal Medicine; ATTEND Internal Medicine
DX: U07.1 COVID-19 (principal); R09.02 Hypoxemia; J96.01 Acute respiratory failure with hypoxia; J12.82 Pneumonia due to coronavirus disease 2019; N17.9 Acute kidney failure, unspecified; E87.6 Hypokalemia; E83.42 Hypomagnesemia; R77.8 Other specified abnormalities of plasma proteins; E88.09 Other disorders of plasma-protein metabolism, not elsewhere classified; E55.9 Vitamin D deficiency, unspecified; M79.7 Fibromyalgia; H54.7 Unspecified visual loss; I10 Essential (primary) hypertension; K21.9 Gastro-esophageal reflux disease without esophagitis; E11.9 Type 2 diabetes mellitus without complications; I95.2 Hypotension due to drugs; T50.905A Adverse effect of unspecified drugs, medicaments and biological substances, initial encounter; Z88.2 Allergy status to sulfonamides; Z88.0 Allergy status to penicillin; Z91.041 Radiographic dye allergy status; Z79.84 Long term (current) use of oral hypoglycemic drugs; Z98.49 Cataract extraction status, unspecified eye; Z90.49 Acquired absence of other specified parts of digestive tract; Z90.710 Acquired absence of both cervix and uterus; Z88.8 Allergy status to other drugs, medicaments and biological substances; Z79.899 Other long term (current) drug therapy; Z87.440 Personal history of urinary (tract) infections
CPT/HCPCS: 0240U; 36415; 36600; 51702; 71045; 80048; 80053; 81001; 82306; 82728; 82803; 82947; 82962; 83605; 83615; 83735; 83880; 84439; 84443; 84484; 85007; 85025; 85027; 85379; 85610; 85730; 86140; 87040; 87641; 87651; 93005; 94667; 94668; 94761; 94762; 97110; 97162; 97165; 97530; 97535; 93010; 96365; 96366; 96367; 96375; 99223; 99232; 99233; 99239; 99284; 99285-25; A9270-GY; J0696; J1650; J1815-GY; J2270; J2405; J3475; J3490; J7030; J7050; J7060; J7120; M0243; Q0243

== ENCOUNTER 2021-01-12 07:05 | Day surgery (SDC) | payer MEDICARE ==
[~2021-01-12 07:05] MED LIST: Albuterol 0.083% 2.5 MG/3 ML Neb Soln NEB PRN; Clindamycin Phosphate in D5W 900 MG in Premix Bag 1 BAG IV ONE; Lidocaine 1% 0 ML ONE; Lidocaine 1%/Sod Bicarbonate in NS 8.4% 1 ML Syringe IDERM PRN; Midazolam 1 MG/ML 2 ML SDV ONE; Morphine 8 MG, EPINEPHrine 0.3 MG, Ketorolac 30 MG, Sodium Chloride 0.9% 7.9 ML PRN; Propofol 200 MG/20 ML SDV ONE; Sodium Chloride 0.9% 10 ML Syringe FLUSH PRN; fentaNYL 100 MCG/2 ML SDV ONE
--- NOTE | 2021-01-12 07:10 | PCM.PREANE ---
Preanesthetic Assessment - Anesthesia/Transfusion/Family Hx Anesthesia History: Prior Anesthesia Without Reaction Family History of Anesthesia Reaction: No Transfusion History: No Prior Transfusion(s) Intubation History: Unknown - Review of Systems General: No Symptoms Pulmonary: No Symptoms Cardiovascular: No Symptoms Gastrointestinal: No Symptoms Neurological: No Symptoms Other: Reports: Diabetes (AM BS 154 @ 0730 ) - Physical Assessment NPO Status Date: 01/12/21 NPO Status Time: 22:30 ASA Class: 2 Mental Status: Alert & Oriented x3 Airway Class: Mallampati = 1 Dentition: Reports: Dentures (upper) Thyro-Mental Finger Breadths: 3 Mouth Opening Finger Breadths: 3 ROM/Head Extension: Full Lungs: Clear to Auscultation, Normal Respiratory Effort Cardiovascular: Regular Rate, Regular Rhythm - Allergies Allergies/Adverse Reactions: Allergies Allergy/AdvReac Type Severity Reaction Status Date / Time Iodinated Contrast Media Allergy Hives Verified 01/09/21 09:54 iodine Allergy Hives Verified 01/09/21 09:54 Penicillins Allergy Hives Verified 01/09/21 09:54 Sulfa (Sulfonamide Allergy Hives Verified 01/09/21 09:54 Antibiotics) - Anesthesia Plan Beta Rosa: Metoprolol Med Last Dose Date: 01/12/21 Med Last Dose Time: 05:30 - Acknowledgements Anesthesia Type Planned: Spinal Pt an Appropriate Candidate for the Planned Anesthesia: Yes Alternatives and Risks of Anesthesia Discussed w Pt/Guardian: Yes Pt/Guardian Understands and Agrees with Anesthesia Plan: Yes PreAnesthesia Questionnaire HEENT History: Reports: Cataract Other HEENT History: wears eyeglasses Cardiovascular History: Reports: Hypertension, SOB on Exertion Other Cardiovascular History: tachycardia, cholesterol Respiratory History: Reports: Other (See Below) (probable emphysematous change per x-ray 5-521) Gastrointestinal History: Reports: GERD, Irritable Bowel Syndrome Genitourinary History: Reports: UTI, Recurrent Other Genitourinary History: frequency, flank pain INTERNET SPECIALIST History: Reports: Other OB/BYN History: vaginitis Musculoskeletal History: Reports: Arthritis, Fibromyalgia Other Musculoskeletal History: CTS, SI joint pain, ganglion, lower back pain, knee pain, scoliosos Neurological History: Reports: Headaches, Chronic Psychiatric History: Reports: Anxiety Endocrine/Metabolic History: Reports: Diabetes, Type II, Vitamin D Deficiency Other Hematologic History: magnesium deficiency - Infectious Disease History Infectious Disease History: Reports: Chicken Pox, Measles, Mumps, Novel Coronavirus, Scarlet Fever - Past Surgical History Respiratory Surgical History: Reports: None GI Surgical History: Reports: Cholecystectomy Female Surgical History: Reports: Hysterectomy, Oophorectomy - SUBSTANCE USE Tobacco Use Status *Q: Former Tobacco User Tobacco Use Within Last Twelve Months: Cigarettes Second Hand Smoke Exposure: No Recreational Drug Use History: No - HOME MEDS Home Medications: Home Meds Amitriptyline [Elavil] 25 mg PO BEDTIME 09/30/20 [History] Brimonidine Tartrate [Brimonidine Tartrate 0.2% Ophth Soln] 1 drop EYEBOTH BID 09/30/20 [History] metFORMIN [Glucophage] 500 mg PO DAILY 09/30/20 [History] Cholecalciferol (Vitamin D3) [Vitamin D3] 5,000 unit PO DAILY #20 cap 10/07/20 [Rx] Metoprolol Tartrate [Lopressor] 25 mg PO Q12H #40 tablet 10/07/20 [Rx] lisinopriL [Lisinopril] 10 mg PO DAILY #20 tablet 10/07/20 [Rx] Magnesium Oxide 400 mg PO DAILY #3 tablet 10/08/20 [Rx] Omeprazole Magnesium [Prilosec Otc] 20 mg PO DAILY 01/09/21 [History] Aspirin [Aspirin EC] 325 mg PO BID #60 tab 01/12/21 [Rx] oxyCODONE 0.5 - 1 mg PO Q6H PRN #30 tab 01/12/21 [Rx] - CURRENT (IN HOUSE) MEDS Current Meds: Current Medications Albuterol (Albuterol 0.083% 2.5 Mg/3 Ml Neb Soln) 2.5 mg NEB ONETIME PRN PRN Reason: COPD Stop: 01/12/21 18:00 Morphine Sulfate 8 mg/Epinephrine HCl 0.3 mg/Ketorolac Tromethamine 30 mg/Sodium Chloride 7.9 ml 0 mg .XX ASDIRECTED PRN PRN Reason: Pain Stop: 01/12/21 12:00 Lactated Ringer's (Ringers, Lactated) 1,000 mls @ 125 mls/hr IV ASDIRECTED ROSEANNA Stop: 01/12/21 23:00 Clindamycin Phosphate 900 mg/ (Premix) 50 mls @ 100 mls/hr IV ONETIME ONE Stop: 01/12/21 07:14 Lidocaine/Sodium Bicarbonate (Lidocaine 1%/Sod Bicarbonate In Ns 8.4% 1 Ml Syringe) 0.25 ml IDERM ONETIME PRN PRN Reason: Prior to IV Start Stop: 01/12/21 18:00 Sodium Chloride (Sodium Chloride 0.9% 10 Ml Syringe) 10 ml FLUSH ASDIRECTED PRN PRN Reason: Keep Vein Open Stop: 01/12/21 18:00 Discontinued Medications Fentanyl (Fentanyl 100 Mcg/2 Ml Sdv) Confirm Administered Dose 100 mcg .ROUTE .STK-MED ONE Stop: 01/12/21 06:50 Lidocaine HCl (Xylocaine-Mpf 1%) Confirm Administered Dose 4 mls @ as directed .ROUTE .STK-MED ONE Stop: 01/12/21 06:47 Midazolam HCl (Midazolam 1 Mg/Ml 2 Ml Sdv) Confirm Administered Dose 2 mg .ROUTE .STK-MED ONE Stop: 01/12/21 06:50 Propofol (Propofol 200 Mg/20 Ml Sdv) Confirm Administered Dose 200 mg .ROUTE .STK-MED ONE Stop: 01/12/21 06:47
[2021-01-12] MEDS ORDERED: Vancomycin 1 GM SDV ONE ×2 (07:26→12:58)
[2021-01-12] MEDS: Lactated Ringers 1,000 ML IV SCH ×2 (07:30→16:22)
[2021-01-12] MEDS ORDERED: EPINEPHrine 1 MG/ML SDV ONE (09:09)
[2021-01-12] MEDS ORDERED: Ropivacaine 0.5% 5 MG/ML 30 ML SDV ONE (09:10)
[2021-01-12] MEDS ORDERED: Lidocaine 1% 4 ML ONE (13:12)
[2021-01-12] MEDS ORDERED: Propofol 200 MG/20 ML SDV ONE ×3 (13:12→14:51)
[2021-01-12] MEDS ORDERED: Lactated Ringers 1,000 ML ONE (14:01)
[2021-01-12] MEDS ORDERED: Ondansetron 4 MG/2 ML SDV IVPUSH PRN (14:01)
[2021-01-12] MEDS ORDERED: fentaNYL 100 MCG/2 ML SDV IVPUSH PRN (14:01)
[2021-01-12] MEDS ORDERED: Midazolam 1 MG/ML 2 ML SDV ONE (14:13)
[2021-01-12] MEDS ORDERED: Ketamine 500 mg/10 ML MDV ONE (14:30)
[2021-01-12] MEDS ORDERED: Ondansetron 4 MG/2 ML SDV ONE (15:06)
[2021-01-12] MEDS ORDERED: Ketorolac 15 MG/ML SDV ONE (15:19)
--- NOTE | 2021-01-12 15:53 | PCM.POSTAN ---
POST ANESTHESIA ASSESSMENT - MENTAL STATUS Mental Status: Alert, Oriented - VITAL SIGNS Vital Signs: Last Vital Signs Temp 37.3 C 01/12/21 07:10 Pulse 79 01/12/21 07:10 Resp 18 01/12/21 07:10 BP 144/78 H 01/12/21 07:10 Pulse Ox 97 01/12/21 07:10 - RESPIRATORY Respiratory Status: Respiratory Rate WNL, Airway Patent, O2 Saturation Stable - CARDIOVASCULAR CV Status: Pulse Rate WNL, Blood Pressure Stable - GASTROINTESTINAL GI Status: No Symptoms - PAIN Pain Score: 0 - POST OP HYDRATION Hydration Status: Adequate & Stable
--- NOTE | 2021-01-12 16:41 | CR ---
Right knee: AP and crosstable lateral views of the right knee were obtained. Comparison: Prior CT right knee study of 01/02/21. Knee prosthesis is seen. Components are aligned. Underlying bony structures are intact. Soft tissue air is seen. Impression: 1. Satisfactory postop radiographic appearance of recently placed right knee prosthesis. Diagnostic code #2
--- NOTE | 2021-01-12 16:42 | PCM.SN.2 ---
- Free Text/Narrative Note: Right selective femoral nerve block at the adductor canal for post-procedure pain control under US guidance requested by Dr. Quezada. Date: 01/12/21 Time Out: 1623 Start: 162 End: 163 Chart reviewed. Consent signed. Questions answered. Appropriate monitors applied. Time out performed. Right mid-shaft femur identified with ultrasound, scanning medially of femur, the femoral artery in the adductor canal visualized, and the femoral nerve located laterally to the artery. The skin was prepped lateral to the ultrasound probe with chlorahexadine times two. The 21ga 4 insulated block needle was inserted under direct ultrasound guidance into the adductor canal. 25mL of 0.5% ropivacaine with 1:200,000 epinephrine was injected circumferentially around the nerve with intermittent negative aspiration noted. Patient tolerated the procedure well. Sterile technique noted along with sterile gloves, mask, and sterile probe cover. See picture on progress note and vital signs on nurses notes. Block completed in PACU. Nancy Palafox, [employer] TANKER DRIVER
[2021-01-12] MEDS: Clindamycin Phosphate in D5W 900 MG in Premix Bag 1 BAG IV SCH ×2 (18:19)
--- NOTE | 2021-01-12 18:41 | PCM48HPAN ---
Post Anesthesia Note - EVALUATION WITHIN 48HRS OF ANESTHETIC Vital Signs in Normal Range: Yes Patient Participated in Evaluation: Yes Respiratory Function Stable: Yes Airway Patent: Yes Cardiovascular Function Stable: Yes Hydration Status Stable: Yes Pain Control Satisfactory: Yes Nausea and Vomiting Control Satisfactory: Yes Mental Status Recovered: Yes Vital Signs: Last Vital Signs Temp 97.5 F 01/12/21 17:35 Pulse 95 01/12/21 17:35 Resp 24 H 01/12/21 17:35 BP 114/48 L 01/12/21 17:35 Pulse Ox 96 01/12/21 17:35 - COMMENTS/OBSERVATIONS Free Text/Narrative:: patient complained of right shoulder and neck pain in pacu. Denies shortness of breath or chest pain. Meds given. EKG ordered to rule out any cardiac issues. EKG within normal limits with no acute changes. Visiting with daughters in room. Eating and denies knee pain.
[2021-01-12] MEDS: Metoprolol Tartrate 25 MG Tab PO SCH (19:58)
[2021-01-12] MEDS ORDERED: Amitriptyline 25 MG Tab PO SCH (21:00)
[2021-01-12] MEDS ORDERED: Brimonidine 0.2% Ophth Soln 15 ML Bottle EYEBOTH SCH (21:00)
[2021-01-12] MEDS: oxyCODONE 5 MG Tab PO PRN (21:05)
[2021-01-13] MEDS: Clindamycin Phosphate in D5W 900 MG in Premix Bag 1 BAG IV SCH ×6 (00:21→12:34)
[2021-01-13] MEDS: oxyCODONE 5 MG Tab PO PRN ×2 (03:16→08:35)
[2021-01-13] MEDS ORDERED: Pantoprazole 40 MG Tab.CR PO SCH (06:00)
[2021-01-13] MEDS ORDERED: Morphine 2 MG/ML SYRINGE IVPUSH ONE (06:20)
[2021-01-13] MEDS: Metoprolol Tartrate 25 MG Tab PO SCH (08:31)
[2021-01-13] MEDS ORDERED: oxyCODONE 5 MG Tab PO ONE ×2 (08:37→10:45)
[2021-01-13] MEDS ORDERED: Magnesium Oxide 400 MG Tab PO SCH (09:00)
[2021-01-13] MEDS ORDERED: Cholecalciferol (Vitamin D3) 5,000 UNIT Cap PO SCH (09:00)
[2021-01-13] MEDS ORDERED: Brimonidine 0.2% Ophth Soln 5 ML Bottle EYEBOTH SCH (09:00)
[2021-01-13] MEDS ORDERED: Ascorbic Acid 500 MG Tab PO SCH (09:00)
[2021-01-13] MEDS ORDERED: Vitamin B6-pyridOXINE 50 MG Tab PO SCH (09:00)
[2021-01-13] MEDS ORDERED: Lisinopril 10 MG Tab PO SCH (09:00)
[2021-01-13] MEDS ORDERED: Ketorolac 15 MG/ML SDV IVPUSH ONE (10:46)
[2021-01-13] MEDS ORDERED: Cyclobenzaprine 10 MG Tab PO ONE (12:03)
[2021-01-13] MEDS ORDERED: Cyclobenzaprine 10 MG Tab PO PRN (13:30)
[2021-01-13] MEDS ORDERED: oxyCODONE 5 MG Tab PO PRN (13:31)
[2021-01-13] MEDS ORDERED: Morphine 2 MG/ML SYRINGE IVPUSH PRN (13:33)
[2021-01-13] MEDS ORDERED: Aspirin 325 MG Tab.EC PO SCH (21:00)
--- NOTE | 2021-01-14 10:25 | PCM.SURGPN ---
- General Info Date of Service: 01/13/21 POD#: 1 Functional Status: Reports: Tolerating Diet, Ambulating, Urinating, Incentive Spirometry - Patient Data Vitals - Most Recent: Last Vital Signs Temp 99.1 F 01/13/21 14:44 Pulse 89 01/13/21 14:44 Resp 16 01/13/21 14:44 BP 133/68 01/13/21 14:44 Pulse Ox 99 01/13/21 14:44 Weight - Most Recent: 137 lb I&O - Last 24 Hours: Intake & Output 01/13/21 01/14/21 01/14/21 22:59 06:59 14:59 Intake Total 120 Balance 120 Med Orders - Current: Current Medications Discontinued Medications Albuterol (Albuterol 0.083% 2.5 Mg/3 Ml Neb Soln) 2.5 mg NEB ONETIME PRN PRN Reason: COPD Stop: 01/12/21 18:00 Amitriptyline HCl (Amitriptyline 25 Mg Tab) 25 mg PO BEDTIME [facility] Last Admin: 01/12/21 21:05 Dose: 25 mg Documented by: Ascorbic Acid (Ascorbic Acid 500 Mg Tab) 500 mg PO DAILY [facility] Last Admin: 01/13/21 08:29 Dose: 500 mg Documented by: Aspirin (Aspirin 325 Mg Tab.Ec) 325 mg PO BID [facility] Brimonidine Tartrate (Brimonidine 0.2% Ophth Soln 15 Ml Bottle) 0 ml EYEBOTH BID [facility] Last Admin: 01/12/21 21:11 Dose: Not Given Documented by: Brimonidine Tartrate (Brimonidine 0.2% Ophth Soln 5 Ml Bottle) 0 ml EYEBOTH BID [facility] Last Admin: 01/13/21 08:38 Dose: 1 applic Documented by: Cholecalciferol (Cholecalciferol (Vitamin D3) 5,000 Unit Cap) 5,000 unit PO DAILY [facility] Last Admin: 01/13/21 08:29 Dose: 5,000 unit Documented by: Morphine Sulfate 8 mg/Epinephrine HCl 0.3 mg/Ketorolac Tromethamine 30 mg/Sodium Chloride 7.9 ml 0 mg .XX ASDIRECTED PRN PRN Reason: Pain Stop: 01/12/21 12:00 Last Admin: 01/12/21 15:13 Dose: 38.3 mg Documented by: Cyclobenzaprine HCl (Cyclobenzaprine 10 Mg Tab) 5 mg PO ONETIME ONE Stop: 01/13/21 12:04 Last Admin: 01/13/21 12:24 Dose: 5 mg Documented by: Cyclobenzaprine HCl (Cyclobenzaprine 10 Mg Tab) 5 mg PO BID PRN PRN Reason: Spasms Epinephrine HCl (Epinephrine 1 Mg/Ml Sdv) Confirm Administered Dose 1 mg .ROUTE .STK-MED ONE Stop: 01/12/21 09:10 Fentanyl (Fentanyl 100 Mcg/2 Ml Sdv) Confirm Administered Dose 100 mcg .ROUTE .STK-MED ONE Stop: 01/12/21 06:50 Fentanyl (Fentanyl 100 Mcg/2 Ml Sdv) 50 mcg IVPUSH Q5M PRN PRN Reason: Pain Last Admin: 01/12/21 16:16 Dose: 50 mcg Documented by: Lactated Ringer's (Ringers, Lactated) 1,000 mls @ 125 mls/hr IV ASDIRECTED [facility] Stop: 01/12/21 23:00 Last Admin: 01/12/21 16:22 Dose: 125 mls/hr Documented by: Clindamycin Phosphate 900 mg/ (Premix) 50 mls @ 100 mls/hr IV ONETIME ONE Stop: 01/12/21 07:14 Last Admin: 01/12/21 09:42 Dose: 100 mls/hr Documented by: Lidocaine HCl (Xylocaine-Mpf 1%) Confirm Administered Dose 4 mls @ as directed .ROUTE .STK-MED ONE Stop: 01/12/21 06:47 Lidocaine HCl (Xylocaine-Mpf 1%) Confirm Administered Dose 4 mls @ as directed .ROUTE .STK-MED ONE Stop: 01/12/21 13:13 Lactated Ringer's (Ringers, Lactated) Confirm Administered Dose 1,000 mls @ as directed .ROUTE .STK-MED ONE Stop: 01/12/21 14:02 Clindamycin Phosphate 900 mg/ (Premix) 50 mls @ 100 mls/hr IV Q6H [facility] Stop: 01/13/21 12:29 Last Admin: 01/13/21 12:34 Dose: 100 mls/hr Documented by: Ketamine HCl (Ketamine 500 Mg/10 Ml Mdv) Confirm Administered Dose 500 mg .ROUTE .STK-MED ONE Stop: 01/12/21 14:31 Ketorolac Tromethamine (Ketorolac 15 Mg/Ml Sdv) Confirm Administered Dose 15 mg .ROUTE .STK-MED ONE Stop: 01/12/21 15:20 Ketorolac Tromethamine (Ketorolac 15 Mg/Ml Sdv) 15 mg IVPUSH ONETIME ONE Stop: 01/13/21 10:47 Last Admin: 01/13/21 11:17 Dose: 15 mg Documented by: Lidocaine/Sodium Bicarbonate (Lidocaine 1%/Sod Bicarbonate In Ns 8.4% 1 Ml Syringe) 0.25 ml IDERM ONETIME PRN PRN Reason: Prior to IV Start Stop: 01/12/21 18:00 Last Admin: 01/12/21 07:30 Dose: 0.25 ml Documented by: Lisinopril (Lisinopril 10 Mg Tab) 10 mg PO DAILY [facility] Last Admin: 01/13/21 11:13 Dose: 10 mg Documented by: Magnesium Oxide (Magnesium Oxide 400 Mg Tab) 400 mg PO DAILY [facility] Last Admin: 01/13/21 08:29 Dose: 400 mg Documented by: Metoprolol Tartrate (Metoprolol Tartrate 25 Mg Tab) 25 mg PO Q12H [facility] Last Admin: 01/13/21 08:31 Dose: 25 mg Documented by: Midazolam HCl (Midazolam 1 Mg/Ml 2 Ml Sdv) Confirm Administered Dose 2 mg .ROUTE .STK-MED ONE Stop: 01/12/21 06:50 Midazolam HCl (Midazolam 1 Mg/Ml 2 Ml Sdv) Confirm Administered Dose 2 mg .ROUTE .STK-MED ONE Stop: 01/12/21 14:14 Miscellaneous Medication (Phenylephrine Hcl In 0.9% Nacl 1 Mg/10 Ml Syringe) Confirm Administered Dose 1 mg .ROUTE .STK-MED ONE Stop: 01/12/21 14:13 Morphine Sulfate (Morphine 2 Mg/Ml Syringe) 1 mg IVPUSH ONETIME ONE Stop: 01/13/21 06:21 Last Admin: 01/13/21 06:33 Dose: 1 mg Documented by: Morphine Sulfate (Morphine 2 Mg/Ml Syringe) 1 mg IVPUSH Q2H PRN PRN Reason: Pain Ondansetron HCl (Ondansetron 4 Mg/2 Ml Sdv) 4 mg IVPUSH ONETIME PRN PRN Reason: Nausea/Vomiting Ondansetron HCl (Ondansetron 4 Mg/2 Ml Sdv) Confirm Administered Dose 4 mg .ROUTE .STK-MED ONE Stop: 01/12/21 15:07 Oxycodone HCl (Oxycodone 5 Mg Tab) 2.5 - 5 mg PO Q6H PRN PRN Reason: Pain Last Admin: 01/13/21 08:35 Dose: 5 mg Documented by: Oxycodone HCl (Oxycodone 5 Mg Tab) 5 mg PO ONETIME ONE Stop: 01/13/21 08:38 Last Admin: 01/13/21 09:37 Dose: Not Given Documented by: Oxycodone HCl (Oxycodone 5 Mg Tab) 5 mg PO ONETIME ONE Stop: 01/13/21 10:46 Last Admin: 01/13/21 11:16 Dose: 5 mg Documented by: Oxycodone HCl (Oxycodone 5 Mg Tab) 5 - 10 mg PO Q6H PRN PRN Reason: Pain Pantoprazole Sodium (Pantoprazole 40 Mg Tab.Cr) 40 mg PO ACBREAKFAST [facility] Last Admin: 01/13/21 05:54 Dose: 40 mg Documented by: Propofol (Propofol 200 Mg/20 Ml Sdv) Confirm Administered Dose 200 mg .ROUTE .STK-MED ONE Stop: 01/12/21 06:47 Propofol (Propofol 200 Mg/20 Ml Sdv) Confirm Administered Dose 200 mg .ROUTE .STK-MED ONE Stop: 01/12/21 13:13 Propofol (Propofol 200 Mg/20 Ml Sdv) Confirm Administered Dose 200 mg .ROUTE .STK-MED ONE Stop: 01/12/21 14:11 Propofol (Propofol 200 Mg/20 Ml Sdv) Confirm Administered Dose 200 mg .ROUTE .STK-MED ONE Stop: 01/12/21 14:52 Pyridoxine HCl (Vitamin B6-Pyridoxine 50 Mg Tab) 50 mg PO DAILY [facility] Last Admin: 01/13/21 08:29 Dose: 50 mg Documented by: Ropivacaine (Ropivacaine 0.5% 5 Mg/Ml 30 Ml Sdv) Confirm Administered Dose 30 ml .ROUTE .STK-MED ONE Stop: 01/12/21 09:11 Sodium Chloride (Sodium Chloride 0.9% 10 Ml Syringe) 10 ml FLUSH ASDIRECTED PRN PRN Reason: Keep Vein Open Stop: 01/12/21 18:00 Tranexamic Acid (Tranexamic Acid 1,000 Mg/10 Ml Amp) Confirm Administered Dose 0 mg .ROUTE .STK-MED ONE Stop: 01/12/21 07:27 Last Admin: 01/12/21 15:14 Dose: 0 mg Documented by: Tranexamic Acid (Tranexamic Acid 1,000 Mg/10 Ml Amp) Confirm Administered Dose 1,000 mg .ROUTE .STK-MED ONE Stop: 01/12/21 12:59 Vancomycin HCl (Vancomycin 1 Gm Sdv) Confirm Administered Dose 1 gm .ROUTE .STK- MED ONE Stop: 01/12/21 07:27 Vancomycin HCl (Vancomycin 1 Gm Sdv) Confirm Administered Dose 1 gm .ROUTE .STK- MED ONE Stop: 01/12/21 12:59 Last Admin: 01/12/21 15:14 Dose: 1 gm Documented by: - Exam Wound/Incisions: Dressing Dry and Intact General: Alert, Cooperative, No Acute Distress Lungs: Normal Respiratory Effort Extremities: Other (NVS intact for RLE.) Sepsis Event Note - Evaluation Sepsis Screening Result: No Definite Risk - Problem List Review Problem List Initiated/Reviewed/Updated: Yes - Assessment Assessment (Free Text/Narrative):: POD#1 - s/p right TKA - Plan Plan (Free Text/Narrative):: This note will serve as documentation of the [id number] evaluation for the patient for Home Health orders. Home health nursing has been ordered to assist the patient will wound care, assessing for signs and symptoms of infection, pain management, post-surgical education and medication management. Physical therapy has been ordered to assist with gait training, strengthening and endurance activities to increase safety with mobility. Occupational therapy has been ordered to complete a home safe evaluation and assist with ADL completion and education. A FAMILY CENTERED SPECIALIST is recommended to assist the patient with bathing and hygeine. The pt requires home health services as she is home-bound due to recent surgery and decreased level of mobility. The pt's primary care provider is Norma Faria NP. The pt was evaluated by Dr. Quezada on 01-13-2021.
--- NOTE | 2021-01-19 08:58 | PCM.SN.2 ---
#1 Interpretation EKG Date: 01/12/21 Time: 17:07 Rhythm: NSR Rate (Beats/Min): 94 [place]: Normal P-Wave: Present QRS: Normal ST-T: Normal QT: Normal EKG Interpretation Comments: Q waves in the anterior leads. Nothing acute.
--- NOTE | 2021-01-22 07:07 | PCM.OPNOTE ---
- General Post-Op/Procedure Note Date of Surgery/Procedure: 01/12/21 Operative Procedure(s): right total knee arthroplasty with [employer] robot[employer] Pre Op Diagnosis: right knee osteoarthrosis Post-Op Diagnosis: Same Anesthesia Technique: Local, MAC, Spinal Primary Surgeon: Clay Quezada Anesthesia Provider: Vicky Solis Professor Of Musicology: Violetta Brandon Professor Of Musicology: Karla Workman EBL in mLs: 5 Complications: None Condition: Good Free Text/Narrative:: 4 femur 3 tibia 11mm TS 32x10
--- NOTE | 2021-01-22 08:16 | OR ---
DATE OF OPERATION: 01/12/2021 SURGEON: Clay Quezada MD OPERATION PERFORMED: Right total knee arthroplasty with [place] [employer] robotics. PREOPERATIVE DIAGNOSIS: Right knee osteoarthrosis. POSTOPERATIVE DIAGNOSIS: Right knee osteoarthrosis. ANESTHESIA: Local MAC with spinal. ANESTHESIA PROVIDER: Vicky Solis CRNA ASSISTANTS: Violetta Brandon PA-C and Karla Workman LPN ESTIMATED BLOOD LOSS: Less than 5 mL. COMPLICATIONS: None. CONDITION: Stable. IMPLANTS: 1. Bryant size 4 cemented PS femur. 2. Bryant size 3 cemented [place] tibial baseplate. 3. [place] size 3, 11 mm TS X3 polyethylene. 4. [place] size 32 x 10 mm cemented asymmetric patella. DESCRIPTION OF PROCEDURE: The patient was identified in the preoperative holding area. Proper site was marked and identified by surgeon. The patient was taken back to operative theater, where after adequate anesthesia, the patient's right lower extremity had a nonsterile tourniquet applied and was sterilely prepped and draped in usual sterile fashion. OR time-out was performed. The patient received 2 g IV Ancef. Right lower extremity had a leg lira applied and then was exsanguinated. Tourniquet was then insufflated to 250 mmHg. Standard anterior incision was made and medial parapatellar arthrotomy was created. Deep fibers of the MCL were raised and anterior fat pad was resected. Attention was turned to the patella. Patella measured a 21, resected to a 13 for a 32 x 10 mm patella. Drill holes were then drilled and found to be adequate. Attention was turned to the femur. Two 4-0 Schanz pins were placed intra-incisionally in the femur for the Bryant Tong robotic array. The tibia and femoral checkpoints were applied and then the tibial ray was applied as well. The patient was noted to have a very large valgus deformity preoperatively as well as recurvatum. At this time, the medial and lateral malleoli were marked. Checkpoints were obtained and 40 points were then obtained of both the femur and the tibia for the [place] Tong robotic plan. The patient's knee was brought into full extension. She was noted to have recurvatum as well as a very large valgus deformity. At this time, varus and valgus stresses were applied. The patient was noted to have more laxity on the lateral side than the medial side. At this time, it was brought to 90 degrees, and varus-valgus stresses were applied, and gaps were brought down for a resection of 20 on the medial side and 19 on the lateral side. [employer] robotic arm was brought in. Straight saw blade was then used for the tibial cut as well as the anterior femoral cut, anterior chamfer cut, and posterior femoral cut. Bony fragments were removed. Saw blade was switched. The distal femoral cut and posterior chamfer cuts were then completed. Box cut was then completed. At this time, the medial and lateral meniscus were resected as well as posterior osteophytes. At this time, size 3 trial baseplate was applied as well as the size 4 trial femur. A 10 mm poly was attempted. It was noted to have a minor amount of place, so an 11 mm was placed. The patient had no varus-valgus instability. Full extension and flexion with no signs of liftoff, and patella was tracking centrally. At this time, cement was mixed on the back table. All cut surfaces were irrigated with pulse lavage irrigation with Ancef. Tibia was stamped and drilled in the proper rotation. Once the cement was ready, the size 3 tibial baseplate was cemented into place, size [address]. The 11 mm TS X3 polyethylene was then impacted into place and the 32 x 10 mm patella was cemented into place after the patient's knee was brought into full extension. 1 L pulse lavage irrigation with Ancef was irrigated through the knee along with 400 mL IrriSept irrigation. Periarticular injection was then applied. Topical tranexamic acid and vancomycin powder were placed in the wound. #2 barbed suture was used for closure of the medial parapatellar arthrotomy. Before this, all [employer] robotic array pins and checkpoints were removed. 2-0 Vicryl and Stratafix were used for subcutaneous closure. Prineo was used for skin closure. The patient had a sterile soft dressing applied and was sent to the PACU in stable condition. YULIA /[id number]
== END 2021-01-13 16:25 | disposition home or self-care (01) ==
LOC: JD.SDS 07:05 → JD.OB 17:45 → JD.SDS 01-13 16:25
PROVIDERS: ATTEND Orthopaedic Surgery
DX: M17.11 Unilateral primary osteoarthritis, right knee (principal); G89.29 Other chronic pain; K21.9 Gastro-esophageal reflux disease without esophagitis; I10 Essential (primary) hypertension; E11.9 Type 2 diabetes mellitus without complications; E55.9 Vitamin D deficiency, unspecified; D50.9 Iron deficiency anemia, unspecified; Z88.2 Allergy status to sulfonamides; Z88.0 Allergy status to penicillin; Z88.8 Allergy status to other drugs, medicaments and biological substances; Z79.899 Other long term (current) drug therapy; Z98.890 Other specified postprocedural states; Z87.891 Personal history of nicotine dependence; G89.18 Other acute postprocedural pain
CPT/HCPCS: 27447; 73560; 82947; 93005; 97110; 97116; 97162; 97165; 97535; A9270; C1713; C1776; J0171; J1885; J2250; J2270; J2370; J2405; J2704; J2795; J3010; J3370; J3490; J7120; 01402; 64450; 76942; 99100

== ENCOUNTER 2024-08-09 11:39 | Inpatient (IN) | payer MEDICARE ==
[2024-08-09] MEDS ORDERED: Sodium Chloride 0.9% 10 ML Syringe FLUSH PRN (12:08)
[2024-08-09 12:44] LABS: BASOPHILS ABSOLUTE AUTO 0.1 K/mm3 (0.0-0.2); BASOPHILS PERCENT AUTO 0.3 % (0.0-1.0); EOSINOPHILS ABSOLUTE AUTO 0.1 K/mm3 (0.0-0.4); EOSINOPHILS PERCENT AUTO 0.4 % (0.0-6.0); HEMATOCRIT 37.3 % (37.0-47.0); HEMOGLOBIN 11.9 gm/dl (12.0-16.0); IMMATURE GRAN ABSOLUTE AUTO 0.77 K/mm3 (0.00-0.05); IMMATURE GRAN PERCENT AUTO 3.9 % (0.0-0.4); LYMPHOCYTES ABSOLUTE AUTO 2.3 K/mm3 (1.0-4.8); LYMPHOCYTES PERCENT AUTO 11.6 % (24.0-44.0); MEAN CORPUSCULAR HEMOGLOBIN 26.9 pg (28.0-32.0); MEAN CORPUSCULAR HGB CONC 31.9 g/dl (32.0-36.0); MEAN CORPUSCULAR VOLUME 84.2 fl (83.0-99.0); MEAN PLATELET VOLUME 10.5 fl (9.4-12.3); MONOCYTES ABSOLUTE AUTO 1.2 K/mm3 (0.0-0.8); NEUTROPHILS ABSOLUTE AUTO 15.3 K/mm3 (1.8-7.7); NEUTROPHILS PERCENT AUTO 77.8 % (41.0-71.0); PLATELET COUNT,PLT 390 K/mm3 (150-400); RED BLOOD CELL COUNT 4.43 M/mm3 (4.10-5.30); WHITE BLOOD CELL COUNT,WBC 19.63 K/mm3 (3.9-11.3)
[2024-08-09] MEDS: Sodium Chloride 0.9% 1,000 ML IV STA (12:49)
[2024-08-09 13:04] LABS: A/G RATIO 0.4 (1-2); ALBUMIN 1.9 g/dl (3.4-5.0); ANION GAP 16.2 (5-15); BILIRUBIN TOTAL 0.3 mg/dL (0.2-1.0); BUN/CREATININE RATIO 18.2 (14-18); C-REACTIVE PROTEIN 15.83 mg/dL (<0.30); CALCIUM 8.3 mg/dL (8.5-10.1); EST CRCL DRUG DOSING (CG) 9.32 mL/min; POTASSIUM,K 4.2 mEq/L (3.5-5.1); PROTEIN TOTAL,TP 6.6 g/dl (6.4-8.2)
[2024-08-09 13:06] LABS: CREATININE 3.3 mg/dL (0.55-1.02)
[2024-08-09] MEDS ORDERED: cefTRIAXone 2 GM in Sodium Chloride 0.9% 100 ML IV ONE (13:40)
[2024-08-09 14:21] LABS: APPEARANCE,URINE SLT CLOUDY (Clear); BILIRUBIN,URINE NEGATIVE (Negative); COLOR,URINE DARK YELLOW (Yellow); GLUCOSE,URINE NEGATIVE (Negative); KETONES,URINE NEGATIVE (Negative); LEUKOCYTE ESTERASE,URINE TRACE (Negative); NITRITE,URINE NEGATIVE (Negative); OCCULT BLOOD,URINE NEGATIVE (Negative); PH,URINE 5.5 (5.0-8.0); PROTEIN,URINE 1+ (Negative); UROBILINOGEN,URINE 0.2 (0.2-1.0)
[2024-08-09] MEDS: metroNIDAZOLE/Normal Saline 500 MG in Premix Bag 1 BAG IV ONE (14:33)
[2024-08-09 14:40] LABS: LACTIC ACID 2.3 mmol/L (0.4-2.0)
[2024-08-09 14:46] LABS: BACTERIA,URINE MANY /hpf (FEW); MUCUS,URINE NOT SEEN /hpf (FEW); RBC,URINE 0-5 /hpf (0-5); SQUAMOUS EPITHELIAL CELLS,UR NOT SEEN /hpf (0-5)
[2024-08-09] MEDS ORDERED: Ondansetron 4 MG/2 ML SDV IV PRN (15:18)
[2024-08-09] MEDS: cefTRIAXone 2 GM Vial IV ONE (15:43)
[2024-08-09] MEDS: Heparin Sodium 5,000 Units/ML Vial SUBCUT SCH (17:00)
[2024-08-09] MEDS: Acetaminophen 325 MG Tab PO PRN (17:01)
[2024-08-09] MEDS: traMADol 50 MG Tab PO ONE (17:19)
[2024-08-09] MEDS: traMADol 50 MG Tab PO PRN (18:29)
[2024-08-09] MEDS: metroNIDAZOLE/Normal Saline 500 MG in Premix Bag 1 BAG IV SCH (20:36)
[2024-08-10 04:37] LABS: HEMATOCRIT 32.8 % (37.0-47.0); HEMOGLOBIN 10.5 gm/dl (12.0-16.0); MEAN CORPUSCULAR HEMOGLOBIN 27.1 pg (28.0-32.0); MEAN CORPUSCULAR VOLUME 84.8 fl (83.0-99.0); MEAN PLATELET VOLUME 10.4 fl (9.4-12.3); PLATELET COUNT,PLT 311 K/mm3 (150-400); RED BLOOD CELL COUNT 3.87 M/mm3 (4.10-5.30); WHITE BLOOD CELL COUNT,WBC 14.25 K/mm3 (3.9-11.3)
[2024-08-10 05:22] LABS: A/G RATIO 0.4 (1-2); ALANINE AMINOTRANSFERASE,ALT 9 U/L (14-59); ALBUMIN 1.4 g/dl (3.4-5.0); ALKALINE PHOSPHATASE 104 U/L (46-116); ASPARTATE AMNIOTRANSFERASE,AST 12 U/L (15-37); BILIRUBIN TOTAL 0.2 mg/dL (0.2-1.0); BLOOD UREA NITROGEN,BUN 58 mg/dL (7-18); BUN/CREATININE RATIO 25.2 (14-18); C-REACTIVE PROTEIN 9.81 mg/dL (<0.30); CALCIUM 7.6 mg/dL (8.5-10.1); CARBON DIOXIDE,CO2 21 mEq/L (21-32); CHLORIDE,CL 102 mEq/L (98-107); CREATININE 2.3 mg/dL (0.55-1.02); ESTIMATED GFR 20 mL/min (>60); GLUCOSE RANDOM 160 mg/dL (70-99); SODIUM,NA 135 mEq/L (136-145)
[2024-08-10] MEDS: Benzocaine/Cetylpyridinium/Menthol Lozenge MUCMEM PRN (06:57)
[2024-08-10] MEDS: Sodium Chloride 0.9% 1,000 ML IV ONE (08:19)
[2024-08-10] MEDS ORDERED: Metoprolol Tartrate 25 MG Tab PO ONE (08:50)
[2024-08-10] MEDS ORDERED: cefTRIAXone 2 GM in Sodium Chloride 0.9% 100 ML IV SCH (14:00)
[2024-08-10] MEDS: Benzocaine 20% Oral Spray 59.2 ML Canister MUCMEM PRN (14:29)
[2024-08-10] MEDS: cefTRIAXone 2 GM Vial IVPUSH SCH (15:33)
[2024-08-10] MEDS: Pantoprazole 40 MG Tab.CR PO SCH (20:10)
[2024-08-10] MEDS: Amitriptyline 25 MG Tab PO SCH (20:10)
[2024-08-10] MEDS: Metoprolol Tartrate 25 MG Tab PO SCH (20:10)
[2024-08-10] MEDS: Timolol Maleate 0.5% Ophth Soln 5 ML Bottle EYEBOTH SCH (20:12)
[2024-08-11 05:53] LABS: HEMATOCRIT 31.2 % (37.0-47.0); HEMOGLOBIN 9.7 gm/dl (12.0-16.0); MEAN CORPUSCULAR HEMOGLOBIN 26.1 pg (28.0-32.0); MEAN CORPUSCULAR HGB CONC 31.1 g/dl (32.0-36.0); MEAN CORPUSCULAR VOLUME 84.1 fl (83.0-99.0); MEAN PLATELET VOLUME 10.4 fl (9.4-12.3); PLATELET COUNT,PLT 315 K/mm3 (150-400); RED BLOOD CELL COUNT 3.71 M/mm3 (4.10-5.30); WHITE BLOOD CELL COUNT,WBC 10.03 K/mm3 (3.9-11.3)
[2024-08-11 06:09] LABS: A/G RATIO 0.4 (1-2); ALANINE AMINOTRANSFERASE,ALT 8 U/L (14-59); ALBUMIN 1.3 g/dl (3.4-5.0); ALKALINE PHOSPHATASE 102 U/L (46-116); ANION GAP 13.8 (5-15); ASPARTATE AMNIOTRANSFERASE,AST 12 U/L (15-37); BILIRUBIN TOTAL 0.2 mg/dL (0.2-1.0); BLOOD UREA NITROGEN,BUN 48 mg/dL (7-18); BUN/CREATININE RATIO 28.2 (14-18); CALCIUM 7.4 mg/dL (8.5-10.1); CARBON DIOXIDE,CO2 21 mEq/L (21-32); CHLORIDE,CL 103 mEq/L (98-107); CREATININE 1.7 mg/dL (0.55-1.02); ESTIMATED GFR 29 mL/min (>60); GLUCOSE RANDOM 163 mg/dL (70-99); POTASSIUM,K 3.8 mEq/L (3.5-5.1); PROTEIN TOTAL,TP 4.8 g/dl (6.4-8.2); SODIUM,NA 134 mEq/L (136-145)
[2024-08-11] MEDS: Pantoprazole 40 MG Tab.CR PO SCH (08:00)
[2024-08-11] MEDS: NS + KCl 20mEq/L 1,000 ML IV SCH (11:07)
[2024-08-11] MEDS ORDERED: Sennosides/Docusate Sodium 50-8.6 MG Tab PO PRN (11:58)
[2024-08-12] MEDS ORDERED: Labetalol 100 MG/20 ML MDV IVPUSH PRN (14:05)
[2024-08-12] MEDS ORDERED: hydrALAZINE 20 MG/ML SDV IVPUSH PRN (14:05)
[2024-08-12] MEDS ORDERED: Melatonin 3 MG Tab PO PRN (14:24)
[2024-08-12] MEDS ORDERED: 50% Dextrose in Water 50 ML Syringe IVPUSH PRN (14:29)
[2024-08-12] MEDS: oxyCODONE 5 MG Tab PO PRN (15:47)
[2024-08-12] MEDS: Insulin Lispro 100 Unit/ML 3 ML KwikPen SUBCUT SCH (18:46)
[2024-08-13 06:10] LABS: BASOPHILS PERCENT AUTO 0.3 % (0.0-1.0); EOSINOPHILS ABSOLUTE AUTO 0.3 K/mm3 (0.0-0.4); EOSINOPHILS PERCENT AUTO 3.3 % (0.0-6.0); HEMATOCRIT 33.3 % (37.0-47.0); HEMOGLOBIN 10.5 gm/dl (12.0-16.0); IMMATURE GRAN ABSOLUTE AUTO 0.16 K/mm3 (0.00-0.05); IMMATURE GRAN PERCENT AUTO 1.7 % (0.0-0.4); LYMPHOCYTES ABSOLUTE AUTO 2.3 K/mm3 (1.0-4.8); LYMPHOCYTES PERCENT AUTO 23.9 % (24.0-44.0); MEAN CORPUSCULAR HEMOGLOBIN 26.4 pg (28.0-32.0); MEAN CORPUSCULAR HGB CONC 31.5 g/dl (32.0-36.0); MEAN CORPUSCULAR VOLUME 83.7 fl (83.0-99.0); MEAN PLATELET VOLUME 9.9 fl (9.4-12.3); MONOCYTES ABSOLUTE AUTO 0.8 K/mm3 (0.0-0.8); MONOCYTES PERCENT AUTO 8.7 % (0.0-8.0); NEUTROPHILS ABSOLUTE AUTO 5.9 K/mm3 (1.8-7.7); NEUTROPHILS PERCENT AUTO 62.1 % (41.0-71.0); PLATELET COUNT,PLT 322 K/mm3 (150-400); RED BLOOD CELL COUNT 3.98 M/mm3 (4.10-5.30); WHITE BLOOD CELL COUNT,WBC 9.46 K/mm3 (3.9-11.3)
[2024-08-13 06:42] LABS: A/G RATIO 0.5 (1-2); ALANINE AMINOTRANSFERASE,ALT 25 U/L (14-59); ALBUMIN 1.9 g/dl (3.4-5.0); ALKALINE PHOSPHATASE 124 U/L (46-116); ANION GAP 12.8 (5-15); ASPARTATE AMNIOTRANSFERASE,AST 38 U/L (15-37); BILIRUBIN TOTAL 0.3 mg/dL (0.2-1.0); CALCIUM 8.4 mg/dL (8.5-10.1); CARBON DIOXIDE,CO2 22 mEq/L (21-32); CHLORIDE,CL 109 mEq/L (98-107); ESTIMATED GFR 54 mL/min (>60); GLUCOSE RANDOM 140 mg/dL (70-99); MAGNESIUM 1.2 mg/dL (1.8-2.4); POTASSIUM,K 3.8 mEq/L (3.5-5.1); PROTEIN TOTAL,TP 5.7 g/dl (6.4-8.2); SODIUM,NA 140 mEq/L (136-145)
[2024-08-13 07:05] LABS: BLOOD UREA NITROGEN,BUN 20 mg/dL (7-18)
[2024-08-13] MEDS: Saccharomyces Boulardii (Probiotic) 250 MG Cap PO SCH (08:38)
[2024-08-13] MEDS: Metoprolol Tartrate 25 MG Tab PO ONE (09:05)
[2024-08-13] MEDS: Magnesium Oxide 400 MG Tab PO ONE ×2 (13:44→14:03)
[2024-08-13] MEDS: Phosphorus #1 250 MG Tab PO ONE (13:44)
[2024-08-13] MEDS ORDERED: Metoprolol Tartrate 25 MG Tab PO SCH (21:00)
== END 2024-08-13 14:59 | disposition home health service (06) | DRG 871 ==
LOC: JD.ED 11:39 → JD.MS 14:05
PROVIDERS: ADMIT Internal Medicine; ATTEND Student in an Organized Health Care Education/Training Program
DX: A41.9 Sepsis, unspecified organism (principal); N17.1 Acute kidney failure with acute cortical necrosis; C18.2 Malignant neoplasm of ascending colon; A09 Infectious gastroenteritis and colitis, unspecified; E87.1 Hypo-osmolality and hyponatremia; I10 Essential (primary) hypertension; K21.9 Gastro-esophageal reflux disease without esophagitis; M19.90 Unspecified osteoarthritis, unspecified site; M79.7 Fibromyalgia; F41.9 Anxiety disorder, unspecified; E11.9 Type 2 diabetes mellitus without complications; R65.20 Severe sepsis without septic shock; Z66 Do not resuscitate; E83.42 Hypomagnesemia; E83.39 Other disorders of phosphorus metabolism; Z88.0 Allergy status to penicillin; Z88.2 Allergy status to sulfonamides; Z91.041 Radiographic dye allergy status; Z79.899 Other long term (current) drug therapy; Z79.82 Long term (current) use of aspirin; Z98.890 Other specified postprocedural states; Z86.16 Personal history of COVID-19; Z98.49 Cataract extraction status, unspecified eye; Z90.49 Acquired absence of other specified parts of digestive tract; Z90.710 Acquired absence of both cervix and uterus; Z90.722 Acquired absence of ovaries, bilateral; Z79.4 Long term (current) use of insulin
CPT/HCPCS: 36415; 70450; 70450-26; 71046; 71046-26; 74019; 74019-26; 74176; 74176-26; 80053; 81001; 82947; 83605; 83735; 84100; 84484; 85025; 85027; 86140; 87040; 87086; 87428-QW; 93005; 94760; 94761; 97116-GP; 97162-GP; 97530-GP; A9270-GY; C1758; J0696; J1644; J1815; J1836; J3480; J7030

== ENCOUNTER 2024-10-23 07:18 | Inpatient (IN) | payer MEDICARE ==
[~2024-10-23 07:18] MED LIST changes: -Albuterol 0.083% 2.5 MG/3 ML Neb Soln NEB PRN; -Clindamycin Phosphate in D5W 900 MG in Premix Bag 1 BAG IV ONE; -Lidocaine 1% 0 ML ONE; -Lidocaine 1%/Sod Bicarbonate in NS 8.4% 1 ML Syringe IDERM PRN; -Midazolam 1 MG/ML 2 ML SDV ONE; -Morphine 8 MG, EPINEPHrine 0.3 MG, Ketorolac 30 MG, Sodium Chloride 0.9% 7.9 ML PRN; -Propofol 200 MG/20 ML SDV ONE; -fentaNYL 100 MCG/2 ML SDV ONE
[2024-10-23] MEDS ORDERED: Sodium Chloride 0.9% 0 ML ONE (07:29)
[2024-10-23] MEDS ORDERED: Propofol 200 MG/20 ML SDV ONE (07:29)
[2024-10-23] MEDS ORDERED: Rocuronium 50 MG/5 ML Vial ONE ×2 (07:29→10:28)
[2024-10-23] MEDS ORDERED: Lidocaine 2% 5 ML SDV ONE (07:29)
[2024-10-23] MEDS ORDERED: Glycopyrrolate 0.2 MG/ML 2 ML SDV ONE (07:29)
[2024-10-23] MEDS ORDERED: fentaNYL 100 MCG/2 ML SDV ONE (07:29)
[2024-10-23] MEDS ORDERED: Phenylephrine 1% 10 MG/ML SDV ONE (07:29)
[2024-10-23] MEDS: Lactated Ringers 1,000 ML IV SCH (08:00)
[2024-10-23] MEDS ORDERED: cefOXitin 2 GM Vial ONE (09:13)
[2024-10-23] MEDS ORDERED: Ondansetron 4 MG/2 ML SDV ONE (10:56)
[2024-10-23] MEDS ORDERED: Sugammadex Sodium 200 MG/2 ML VIAL IV ONE (11:04)
[2024-10-23] MEDS: EPINEPHrine 1 MG/ML SDV ONE (11:05)
[2024-10-23] MEDS: Bupivacaine 0.5% 30 ML SDV ONE (11:05)
[2024-10-23] MEDS: Heparin Sodium 5,000 Units/ML Vial ONE (11:05)
[2024-10-23] MEDS ORDERED: oxyCODONE 5 MG Tab PO PRN (11:28)
[2024-10-23] MEDS ORDERED: Ondansetron 4 MG/2 ML SDV IVPUSH PRN (11:33)
[2024-10-23] MEDS: fentaNYL 100 MCG/2 ML SDV IVPUSH PRN ×2 (11:36→20:38)
[2024-10-23] MEDS ORDERED: fentaNYL 100 MCG/2 ML SDV IVPUSH PRN (11:42)
[2024-10-23] MEDS: HYDROmorphone 0.5 MG/0.5 ML Syringe IVPUSH PRN (11:42)
[2024-10-23] MEDS: Sodium Chloride 0.9% 10 ML Syringe FLUSH SCH (13:36)
[2024-10-23] MEDS ORDERED: hydrALAZINE 20 MG/ML SDV IVPUSH PRN (15:47)
[2024-10-23] MEDS: Simethicone 80 MG Tab.Chew PO PRN (17:00)
[2024-10-23] MEDS: traMADol 50 MG Tab PO PRN (18:54)
[2024-10-23] MEDS: Metoprolol Tartrate 25 MG Tab PO SCH (20:39)
[2024-10-23] MEDS: Amitriptyline 25 MG Tab PO SCH (20:39)
[2024-10-23] MEDS: Acetaminophen 325 MG Tab PO PRN (22:16)
[2024-10-24] MEDS: Lactated Ringers 1,000 ML IV SCH (00:06)
[2024-10-24 04:37] LABS: BASOPHILS PERCENT AUTO 0.2 % (0.0-1.0); EOSINOPHILS PERCENT AUTO 0.3 % (0.0-6.0); HEMOGLOBIN 8.8 gm/dl (12.0-16.0); IMMATURE GRAN ABSOLUTE AUTO 0.03 K/mm3 (0.00-0.05); IMMATURE GRAN PERCENT AUTO 0.3 % (0.0-0.4); LYMPHOCYTES PERCENT AUTO 19.9 % (24.0-44.0); MEAN CORPUSCULAR HEMOGLOBIN 26.9 pg (28.0-32.0); MEAN CORPUSCULAR HGB CONC 32.6 g/dl (32.0-36.0); MEAN CORPUSCULAR VOLUME 82.6 fl (83.0-99.0); MEAN PLATELET VOLUME 10.7 fl (9.4-12.3); MONOCYTES ABSOLUTE AUTO 0.7 K/mm3 (0.0-0.8); MONOCYTES PERCENT AUTO 6.5 % (0.0-8.0); NEUTROPHILS ABSOLUTE AUTO 7.3 K/mm3 (1.8-7.7); NEUTROPHILS PERCENT AUTO 72.8 % (41.0-71.0); PLATELET COUNT,PLT 288 K/mm3 (150-400); RED BLOOD CELL COUNT 3.27 M/mm3 (4.10-5.30); WHITE BLOOD CELL COUNT,WBC 10.05 K/mm3 (3.9-11.3)
[2024-10-24 05:09] LABS: ANION GAP 11.3 (5-15); BUN/CREATININE RATIO 8.9 (14-18); CALCIUM 7.9 mg/dL (8.5-10.1); CREATININE 0.9 mg/dL (0.55-1.02); EST CRCL DRUG DOSING (CG) 35.52 mL/min; PHOSPHORUS 3.2 mg/dL (2.6-4.7); POTASSIUM,K 3.3 mEq/L (3.5-5.1)
[2024-10-24] MEDS: Pantoprazole 40 MG Tab.CR PO PRN (05:51)
[2024-10-24] MEDS: Insulin Lispro 100 Unit/ML 3 ML KwikPen SUBCUT SCH (07:40)
[2024-10-24] MEDS: Enoxaparin 40 MG/0.4 ML Syringe SUBCUT SCH (09:40)
[2024-10-24] MEDS: fentaNYL 100 MCG/2 ML SDV IVPUSH PRN (20:21)
[2024-10-25 04:24] LABS: BASOPHILS PERCENT AUTO 0.2 % (0.0-1.0); EOSINOPHILS ABSOLUTE AUTO 0.2 K/mm3 (0.0-0.4); EOSINOPHILS PERCENT AUTO 1.6 % (0.0-6.0); HEMATOCRIT 26.6 % (37.0-47.0); HEMOGLOBIN 8.6 gm/dl (12.0-16.0); IMMATURE GRAN ABSOLUTE AUTO 0.03 K/mm3 (0.00-0.05); IMMATURE GRAN PERCENT AUTO 0.3 % (0.0-0.4); LYMPHOCYTES ABSOLUTE AUTO 2.9 K/mm3 (1.0-4.8); LYMPHOCYTES PERCENT AUTO 28.2 % (24.0-44.0); MEAN CORPUSCULAR HEMOGLOBIN 26.6 pg (28.0-32.0); MEAN CORPUSCULAR HGB CONC 32.3 g/dl (32.0-36.0); MEAN CORPUSCULAR VOLUME 82.4 fl (83.0-99.0); MEAN PLATELET VOLUME 10.8 fl (9.4-12.3); MONOCYTES ABSOLUTE AUTO 0.8 K/mm3 (0.0-0.8); MONOCYTES PERCENT AUTO 8.2 % (0.0-8.0); NEUTROPHILS ABSOLUTE AUTO 6.3 K/mm3 (1.8-7.7); NEUTROPHILS PERCENT AUTO 61.5 % (41.0-71.0); PLATELET COUNT,PLT 281 K/mm3 (150-400); RED BLOOD CELL COUNT 3.23 M/mm3 (4.10-5.30); WHITE BLOOD CELL COUNT,WBC 10.25 K/mm3 (3.9-11.3)
[2024-10-25 04:52] LABS: ANION GAP 12.2 (5-15); BUN/CREATININE RATIO 6.7 (14-18); CALCIUM 7.8 mg/dL (8.5-10.1); CREATININE 0.9 mg/dL (0.55-1.02); EST CRCL DRUG DOSING (CG) 36.29 mL/min; POTASSIUM,K 3.2 mEq/L (3.5-5.1)
[2024-10-25] MEDS: Potassium Chloride 20 MEQ Tab.ER PO ONE (07:47)
[2024-10-25] MEDS ORDERED: Naloxone 0.4 MG/ML SDV IVPUSH PRN (08:04)
[2024-10-25] MEDS: Morphine 2 MG/ML SYRINGE IVPUSH ONE (08:17)
[2024-10-25] MEDS: Aspirin 81 MG Tab.Chew PO ONE (08:22)
[2024-10-25] MEDS: Morphine 2 MG/ML SYRINGE IVPUSH PRN (08:22)
[2024-10-25] MEDS ORDERED: Nitroglycerin 0.4 MG Tab.SL SL PRN (08:23)
[2024-10-25] MEDS: Nitroglycerin 0.4 MG Tab.SL SL ONE (08:23)
[2024-10-25] MEDS: Diltiazem 125 MG in Sodium Chloride 0.9% 100 ML IV SCH (08:42)
[2024-10-25] MEDS: Sodium Chloride 0.9% 1,000 ML IV ONE (08:47)
[2024-10-25] MEDS ORDERED: Pantoprazole 40 MG Tab.CR PO PRN (09:00)
[2024-10-25 09:22] LABS: MAGNESIUM 0.7 mg/dL (1.8-2.4)
[2024-10-25] MEDS ORDERED: Aspirin 81 MG Tab.Chew PO ONE (09:30)
[2024-10-25] MEDS: Magnesium Sulf/Wat 4 GM/50 mL 4 GM in Premix Bag 1 BAG IV ONE (09:35)
[2024-10-25] MEDS: Acetaminophen 325 MG Tab PO SCH (09:35)
[2024-10-25] MEDS: Metoprolol Tartrate 25 MG Tab PO SCH (09:47)
[2024-10-25] MEDS: Potassium Phosphates 30 MMOLE in Sodium Chloride 0.9% 500 ML IV SCH (10:01)
[2024-10-25] MEDS: Calcium Carbonate 500 MG Tab.Chew PO PRN (16:18)
[2024-10-25] MEDS: diphenhydrAMINE 25 MG Cap PO PRN (21:05)
[2024-10-26] MEDS: Sodium Chloride 0.9% 1,000 ML ONE ×2 (01:16→12:01)
[2024-10-26] MEDS: Sodium Chloride 0.9% 1,000 ML IV ONE ×2 (01:23→12:02)
[2024-10-26] MEDS: Sodium Chloride 0.9% 500 ML IV ONE (01:27)
[2024-10-26 05:46] LABS: ANION GAP 13.7 (5-15); BUN/CREATININE RATIO 8.2 (14-18); CALCIUM 8.1 mg/dL (8.5-10.1); CREATININE 1.1 mg/dL (0.55-1.02); EST CRCL DRUG DOSING (CG) 29.94 mL/min; HEMOGLOBIN 9.6 gm/dl (12.0-16.0); MAGNESIUM 1.3 mg/dL (1.8-2.4); MEAN CORPUSCULAR HEMOGLOBIN 26.4 pg (28.0-32.0); MEAN CORPUSCULAR VOLUME 82.6 fl (83.0-99.0); MEAN PLATELET VOLUME 10.5 fl (9.4-12.3); PLATELET COUNT,PLT 342 K/mm3 (150-400); POTASSIUM,K 3.7 mEq/L (3.5-5.1); RED BLOOD CELL COUNT 3.63 M/mm3 (4.10-5.30); WHITE BLOOD CELL COUNT,WBC 14.13 K/mm3 (3.9-11.3)
[2024-10-26] MEDS: Metoprolol Succinate 25 MG Tab.ER PO SCH (08:40)
[2024-10-26] MEDS: Potassium Chloride 20 MEQ Tab.ER PO ONE (08:41)
[2024-10-26] MEDS: Magnesium Sulf/Wat 4 GM/50 mL 4 GM in Premix Bag 1 BAG IV ONE (08:42)
[2024-10-26] MEDS: fentaNYL 100 MCG/2 ML SDV IVPUSH PRN (08:43)
[2024-10-26] MEDS: Insulin Glargine,Human Rec. Analog 100 Units/ML 3 ML Pen SUBCUT SCH (08:46)
[2024-10-26] MEDS ORDERED: Metoprolol Tartrate 25 MG Tab PO SCH (09:00)
[2024-10-26 09:18] LABS: APPEARANCE,URINE SLT CLOUDY (Clear); BILIRUBIN,URINE NEGATIVE (Negative); COLOR,URINE YELLOW (Yellow); GLUCOSE,URINE TRACE (Negative); KETONES,URINE NEGATIVE (Negative); LEUKOCYTE ESTERASE,URINE NEGATIVE (Negative); NITRITE,URINE NEGATIVE (Negative); OCCULT BLOOD,URINE TRACE-INTACT (Negative); PH,URINE 5.5 (5.0-8.0); PROTEIN,URINE 1+ (Negative); UROBILINOGEN,URINE 0.2 (0.2-1.0)
[2024-10-26 09:29] LABS: RBC,URINE 0-5 /hpf (0-5)
[2024-10-26 09:30] LABS: BACTERIA,URINE MODERATE /hpf (FEW); MUCUS,URINE FEW /hpf (FEW)
[2024-10-26] MEDS: Pantoprazole 40 MG Tab.CR PO SCH (10:01)
[2024-10-26] MEDS: Brimonidine 0.2% Ophth Soln 5 ML Bottle EYEBOTH SCH (10:02)
[2024-10-26] MEDS: Ondansetron 4 MG Tab.DIS PO PRN (10:29)
[2024-10-26] MEDS: Lactated Ringers 1,000 ML IV SCH (17:23)
[2024-10-26] MEDS: Promethazine 25 MG Tab PO PRN (17:38)
[2024-10-26] MEDS: LORazepam 2 MG/ML SDV IVPUSH PRN (20:09)
[2024-10-26] MEDS: Ondansetron 4 MG/2 ML SDV IVPUSH PRN (23:40)
[2024-10-27 05:25] LABS: BASOPHILS PERCENT AUTO 0.3 % (0.0-1.0); EOSINOPHILS PERCENT AUTO 0.3 % (0.0-6.0); HEMATOCRIT 28.7 % (37.0-47.0); HEMOGLOBIN 9.2 gm/dl (12.0-16.0); IMMATURE GRAN ABSOLUTE AUTO 0.04 K/mm3 (0.00-0.05); IMMATURE GRAN PERCENT AUTO 0.3 % (0.0-0.4); LYMPHOCYTES PERCENT AUTO 8.6 % (24.0-44.0); MEAN CORPUSCULAR HEMOGLOBIN 26.7 pg (28.0-32.0); MEAN CORPUSCULAR HGB CONC 32.1 g/dl (32.0-36.0); MEAN CORPUSCULAR VOLUME 83.2 fl (83.0-99.0); MEAN PLATELET VOLUME 10.4 fl (9.4-12.3); MONOCYTES ABSOLUTE AUTO 0.6 K/mm3 (0.0-0.8); MONOCYTES PERCENT AUTO 4.8 % (0.0-8.0); NEUTROPHILS ABSOLUTE AUTO 10.1 K/mm3 (1.8-7.7); NEUTROPHILS PERCENT AUTO 85.7 % (41.0-71.0); PLATELET COUNT,PLT 341 K/mm3 (150-400); RED BLOOD CELL COUNT 3.45 M/mm3 (4.10-5.30); WHITE BLOOD CELL COUNT,WBC 11.81 K/mm3 (3.9-11.3)
[2024-10-27 05:45] LABS: A/G RATIO 0.5 (1-2); ALBUMIN 1.9 g/dl (3.4-5.0); BILIRUBIN TOTAL 0.5 mg/dL (0.2-1.0); BUN/CREATININE RATIO 8.3 (14-18); C-REACTIVE PROTEIN 2.18 mg/dL (<0.30); CALCIUM 8.5 mg/dL (8.5-10.1); CREATININE 1.2 mg/dL (0.55-1.02); EST CRCL DRUG DOSING (CG) 27.44 mL/min; MAGNESIUM 1.6 mg/dL (1.8-2.4); PHOSPHORUS 3.6 mg/dL (2.6-4.7); PROTEIN TOTAL,TP 5.6 g/dl (6.4-8.2)
[2024-10-27 06:02] LABS: ANION GAP 10.4 (5-15)
[2024-10-27 06:09] LABS: POTASSIUM,K 4.4 mEq/L (3.5-5.1)
[2024-10-27] MEDS: Magnesium Sulfat/D5W 1GM/100ML 1 GM in Premix Bag 1 BAG IV ONE (07:59)
[2024-10-27] MEDS: Lactated Ringers 1,000 ML IV SCH (08:25)
[2024-10-27] MEDS: Pantoprazole 40 MG Vial IVPUSH SCH (11:01)
[2024-10-27] MEDS: fentaNYL 100 MCG/2 ML SDV IVPUSH ONE (11:28)
[2024-10-27] MEDS: Benzocaine 20% Oral Spray 59.2 ML Canister MUCMEM PRN (11:29)
[2024-10-27] MEDS: Insulin Lispro 100 Unit/ML 3 ML KwikPen SUBCUT SCH (11:29)
[2024-10-27] MEDS: Dextrose 5%-0.45% NaCl 1,000 ML IV SCH (11:30)
[2024-10-27] MEDS: 50% Dextrose in Water 50 ML Syringe ONE (11:52)
[2024-10-27] MEDS: 50% Dextrose in Water 50 ML Syringe IVPUSH PRN (11:54)
[2024-10-28] MEDS: Benzocaine/Cetylpyridinium/Menthol Lozenge MUCMEM PRN (00:49)
[2024-10-28 05:44] LABS: BASOPHILS PERCENT AUTO 0.2 % (0.0-1.0); EOSINOPHILS ABSOLUTE AUTO 0.3 K/mm3 (0.0-0.4); EOSINOPHILS PERCENT AUTO 2.4 % (0.0-6.0); HEMATOCRIT 26.5 % (37.0-47.0); HEMOGLOBIN 8.2 gm/dl (12.0-16.0); IMMATURE GRAN ABSOLUTE AUTO 0.05 K/mm3 (0.00-0.05); IMMATURE GRAN PERCENT AUTO 0.4 % (0.0-0.4); LYMPHOCYTES ABSOLUTE AUTO 1.4 K/mm3 (1.0-4.8); LYMPHOCYTES PERCENT AUTO 10.5 % (24.0-44.0); MEAN CORPUSCULAR HEMOGLOBIN 26.5 pg (28.0-32.0); MEAN CORPUSCULAR HGB CONC 30.9 g/dl (32.0-36.0); MEAN CORPUSCULAR VOLUME 85.5 fl (83.0-99.0); MEAN PLATELET VOLUME 10.7 fl (9.4-12.3); MONOCYTES ABSOLUTE AUTO 0.8 K/mm3 (0.0-0.8); MONOCYTES PERCENT AUTO 6.4 % (0.0-8.0); NEUTROPHILS ABSOLUTE AUTO 10.5 K/mm3 (1.8-7.7); NEUTROPHILS PERCENT AUTO 80.1 % (41.0-71.0); PLATELET COUNT,PLT 299 K/mm3 (150-400); WHITE BLOOD CELL COUNT,WBC 13.13 K/mm3 (3.9-11.3)
[2024-10-28 05:48] LABS: A/G RATIO 0.4 (1-2); ALBUMIN 1.4 g/dl (3.4-5.0); BILIRUBIN TOTAL 0.5 mg/dL (0.2-1.0); BUN/CREATININE RATIO 9.1 (14-18); C-REACTIVE PROTEIN 10.95 mg/dL (<0.30); CALCIUM 7.8 mg/dL (8.5-10.1); CREATININE 1.1 mg/dL (0.55-1.02); EST CRCL DRUG DOSING (CG) 29.94 mL/min; MAGNESIUM 1.3 mg/dL (1.8-2.4); PHOSPHORUS 3.3 mg/dL (2.6-4.7); PROTEIN TOTAL,TP 4.6 g/dl (6.4-8.2)
[2024-10-28] MEDS: Enoxaparin 30 MG/0.3 ML Syringe SUBCUT SCH (08:24)
[2024-10-28] MEDS: Magnesium Sulfat/D5W 1GM/100ML 1 GM in Premix Bag 1 BAG IV ONE (11:10)
[2024-10-29 05:35] LABS: HEMATOCRIT 25.6 % (37.0-47.0); HEMOGLOBIN 8.1 gm/dl (12.0-16.0); MEAN CORPUSCULAR HEMOGLOBIN 26.8 pg (28.0-32.0); MEAN CORPUSCULAR HGB CONC 31.6 g/dl (32.0-36.0); MEAN CORPUSCULAR VOLUME 84.8 fl (83.0-99.0); PLATELET COUNT,PLT 316 K/mm3 (150-400); RED BLOOD CELL COUNT 3.02 M/mm3 (4.10-5.30); WHITE BLOOD CELL COUNT,WBC 12.95 K/mm3 (3.9-11.3)
[2024-10-29 05:43] LABS: ANION GAP 7.8 (5-15); BUN/CREATININE RATIO 13.3 (14-18); CALCIUM 7.8 mg/dL (8.5-10.1); CREATININE 0.9 mg/dL (0.55-1.02); EST CRCL DRUG DOSING (CG) 36.59 mL/min; MAGNESIUM 1.2 mg/dL (1.8-2.4); POTASSIUM,K 3.8 mEq/L (3.5-5.1)
[2024-10-29] MEDS: Magnesium Sulf/Wat 2 GM/50 mL 2 GM in Premix Bag 1 BAG IV ONE (09:09)
[2024-10-29] MEDS: Sodium Chloride 0.9% 250 ML IV SCH (09:25)
[2024-10-29] MEDS: Furosemide 20 MG/2 ML VIAL IVPUSH ONE (13:38)
[2024-10-29] MEDS: Metoprolol Tartrate 25 MG Tab PO SCH (21:31)
[2024-10-30 07:54] LABS: HEMATOCRIT 29.9 % (37.0-47.0); MEAN CORPUSCULAR HGB CONC 32.4 g/dl (32.0-36.0); MEAN CORPUSCULAR VOLUME 83.3 fl (83.0-99.0); MEAN PLATELET VOLUME 10.6 fl (9.4-12.3); PLATELET COUNT,PLT 331 K/mm3 (150-400); RED BLOOD CELL COUNT 3.59 M/mm3 (4.10-5.30); WHITE BLOOD CELL COUNT,WBC 11.62 K/mm3 (3.9-11.3)
[2024-10-30 07:55] LABS: HEMOGLOBIN 9.7 gm/dl (12.0-16.0)
[2024-10-30 08:26] LABS: ANION GAP 10.6 (5-15); BUN/CREATININE RATIO 11.8 (14-18); CALCIUM 7.5 mg/dL (8.5-10.1); CREATININE 1.1 mg/dL (0.55-1.02); EST CRCL DRUG DOSING (CG) 29.94 mL/min; POTASSIUM,K 3.6 mEq/L (3.5-5.1)
[2024-10-30] MEDS: Metoprolol Tartrate 25 MG Tab PO STA (08:52)
[2024-10-30] MEDS: Magnesium Sulf/Wat 4 GM/50 mL 4 GM in Premix Bag 1 BAG IV ONE (11:23)
[2024-10-30 13:23] LABS: TSH 3.574 uIU/mL (0.358-3.74)
[2024-10-30] MEDS: Metoprolol Tartrate 25 MG Tab PO SCH (20:21)
[2024-10-31 07:27] LABS: HEMOGLOBIN 9.8 gm/dl (12.0-16.0); MEAN CORPUSCULAR HEMOGLOBIN 26.8 pg (28.0-32.0); MEAN CORPUSCULAR HGB CONC 32.7 g/dl (32.0-36.0); MEAN CORPUSCULAR VOLUME 82.2 fl (83.0-99.0); PLATELET COUNT,PLT 354 K/mm3 (150-400); RED BLOOD CELL COUNT 3.65 M/mm3 (4.10-5.30); WHITE BLOOD CELL COUNT,WBC 10.85 K/mm3 (3.9-11.3)
[2024-10-31 07:51] LABS: A/G RATIO 0.4 (1-2); ALBUMIN 1.6 g/dl (3.4-5.0); ANION GAP 7.5 (5-15); BILIRUBIN TOTAL 0.7 mg/dL (0.2-1.0); BUN/CREATININE RATIO 13.6 (14-18); CALCIUM 7.5 mg/dL (8.5-10.1); CREATININE 1.1 mg/dL (0.55-1.02); EST CRCL DRUG DOSING (CG) 29.94 mL/min; MAGNESIUM 1.2 mg/dL (1.8-2.4); POTASSIUM,K 3.5 mEq/L (3.5-5.1); PROTEIN TOTAL,TP 5.2 g/dl (6.4-8.2)
[2024-10-31] MEDS: Apixaban 2.5 MG Tab PO SCH (08:16)
[2024-10-31] MEDS: Metoprolol Tartrate 5 MG/5 ML SDV IVPUSH ONE (08:16)
[2024-10-31] MEDS: Magnesium Sulf/Wat 4 GM/50 mL 4 GM in Premix Bag 1 BAG IV ONE (10:10)
[2024-11-01] MEDS ORDERED: Metoprolol Tartrate 50 MG Tab PO SCH (08:15)
[2024-11-01] MEDS: Metoprolol Tartrate 50 MG Tab PO SCH (08:37)
[2024-11-01 08:46] LABS: ANION GAP 11.5 (5-15); CALCIUM 8.2 mg/dL (8.5-10.1); CREATININE 1.2 mg/dL (0.55-1.02); EST CRCL DRUG DOSING (CG) 27.44 mL/min; MAGNESIUM 1.4 mg/dL (1.8-2.4); POTASSIUM,K 3.5 mEq/L (3.5-5.1)
[2024-11-01] MEDS: Magnesium Sulf/Wat 4 GM/50 mL 4 GM in Premix Bag 1 BAG IV ONE (10:20)
[2024-11-02] MEDS ORDERED: Ondansetron 4 MG Tab.DIS PO PRN (07:46)
[2024-11-02] MEDS ORDERED: Loperamide 2 MG Cap PO PRN (08:21)
[2024-11-02] MEDS: Pantoprazole 40 MG Tab.CR PO SCH (08:26)
[2024-11-02] MEDS: Loperamide 2 MG Cap PO SCH (08:53)
[2024-11-02] MEDS: Magnesium Citrate Solution 296 ML Bottle PO ONE (08:53)
== END 2024-11-02 12:01 | DRG 329 ==
LOC: JD.SDS 07:18 → JD.MS 11:21 → JD.ICU 10-25 08:33
PROVIDERS: ADMIT Surgery; ATTEND Family Medicine
PROC: 0DBP8ZZ Excision of Rectum, Via Natural or Artificial Opening Endoscopic (ICD-10-PCS; principal; 2024-10-23 08:15)
PROC: 0DTF4ZZ Resection of Right Large Intestine, Percutaneous Endoscopic Approach (ICD-10-PCS; principal; 2024-10-23 08:15)
PROC: 30233N1 Transfusion of Nonautologous Red Blood Cells into Peripheral Vein, Percutaneous Approach (ICD-10-PCS; 2024-10-23 08:15)
PROC: 0D9670Z Drainage of Stomach with Drainage Device, Via Natural or Artificial Opening (ICD-10-PCS; 2024-10-26)
DX: C18.0 Malignant neoplasm of cecum (principal); J96.01 Acute respiratory failure with hypoxia; I13.0 Hypertensive heart and chronic kidney disease with heart failure and stage 1 through stage 4 chronic kidney disease, or unspecified chronic kidney disease; I48.19 Other persistent atrial fibrillation; K91.89 Other postprocedural complications and disorders of digestive system; K56.7 Ileus, unspecified; Z66 Do not resuscitate; D50.9 Iron deficiency anemia, unspecified; M19.90 Unspecified osteoarthritis, unspecified site; G56.01 Carpal tunnel syndrome, right upper limb; M53.3 Sacrococcygeal disorders, not elsewhere classified; Z23 Encounter for immunization; G89.29 Other chronic pain; N18.30 Chronic kidney disease, stage 3 unspecified; K59.09 Other constipation; M79.7 Fibromyalgia; M67.40 Ganglion, unspecified site; K21.9 Gastro-esophageal reflux disease without esophagitis; H40.9 Unspecified glaucoma; K58.9 Irritable bowel syndrome, unspecified; M54.50 Low back pain, unspecified; K63.89 Other specified diseases of intestine; M81.0 Age-related osteoporosis without current pathological fracture; F10.90 Alcohol use, unspecified, uncomplicated; M41.9 Scoliosis, unspecified; I44.0 Atrioventricular block, first degree; E87.6 Hypokalemia; E11.65 Type 2 diabetes mellitus with hyperglycemia; I50.9 Heart failure, unspecified; E78.00 Pure hypercholesterolemia, unspecified; F11.90 Opioid use, unspecified, uncomplicated; E83.42 Hypomagnesemia; Z96.659 Presence of unspecified artificial knee joint; I08.0 Rheumatic disorders of both mitral and aortic valves; R41.0 Disorientation, unspecified; K57.90 Diverticulosis of intestine, part unspecified, without perforation or abscess without bleeding; E83.39 Other disorders of phosphorus metabolism; R19.7 Diarrhea, unspecified; Z90.49 Acquired absence of other specified parts of digestive tract; Z98.49 Cataract extraction status, unspecified eye; Z90.710 Acquired absence of both cervix and uterus; Z98.890 Other specified postprocedural states; Z78.0 Asymptomatic menopausal state; Z87.891 Personal history of nicotine dependence; Z88.8 Allergy status to other drugs, medicaments and biological substances; Z88.0 Allergy status to penicillin; Z79.899 Other long term (current) drug therapy; Z88.2 Allergy status to sulfonamides; Z86.16 Personal history of COVID-19; Z90.722 Acquired absence of ovaries, bilateral
CPT/HCPCS: 36415; 36430; 51702; 51798; 71045; 71045-26; 74018; 74018-26; 80048; 80053; 81001; 82947; 83735; 84100; 84443; 84484; 85025; 85027; 86140; 86850; 86900; 86901; 86922; 88305; 88309; 88341; 88342; 93005; 93306; 94761; 97110-GP; 97116-GP; 97162-GP; 97530-GP; A9270-GY; C1713; J0171; J0665; J0694; J1596; J1644; J1650; J1815; J1815-GY; J1940; J2003; J2060; J2270; J2371; J2405; J2470; J2704; J3010; J3475; J3490; J7030; J7040; J7120; J7799; P9016; Q0169; U0002

== ENCOUNTER 2024-11-03 20:03 | Emergency (ER) | payer MEDICARE ==
[2024-11-03 21:10] LABS: APPEARANCE,URINE CLOUDY (Clear); BILIRUBIN,URINE NEGATIVE (Negative); COLOR,URINE PINK (Yellow); GLUCOSE,URINE NEGATIVE (Negative); KETONES,URINE NEGATIVE (Negative); LEUKOCYTE ESTERASE,URINE 3+ (Negative); NITRITE,URINE POSITIVE (Negative); OCCULT BLOOD,URINE 3+ (Negative); PH,URINE 6.5 (5.0-8.0); PROTEIN,URINE 2+ (Negative); UROBILINOGEN,URINE 0.2 (0.2-1.0)
[2024-11-03 21:18] LABS: BACTERIA,URINE MANY /hpf (FEW); MUCUS,URINE NOT SEEN /hpf (FEW); RBC,URINE TOO NUMEROUS TO CNT /hpf (0-5); SQUAMOUS EPITHELIAL CELLS,UR 0-5 /hpf (0-5); WBC,URINE TOO NUMEROUS TO CNT /hpf (0-5)
[2024-11-03 21:32] LABS: BASOPHILS PERCENT AUTO 0.2 % (0.0-1.0); EOSINOPHILS ABSOLUTE AUTO 0.2 K/mm3 (0.0-0.4); EOSINOPHILS PERCENT AUTO 2.3 % (0.0-6.0); HEMATOCRIT 32.3 % (37.0-47.0); HEMOGLOBIN 10.3 gm/dl (12.0-16.0); IMMATURE GRAN ABSOLUTE AUTO 0.07 K/mm3 (0.00-0.05); IMMATURE GRAN PERCENT AUTO 0.7 % (0.0-0.4); LYMPHOCYTES ABSOLUTE AUTO 1.8 K/mm3 (1.0-4.8); MEAN CORPUSCULAR HEMOGLOBIN 27.1 pg (28.0-32.0); MEAN CORPUSCULAR HGB CONC 31.9 g/dl (32.0-36.0); MEAN PLATELET VOLUME 9.7 fl (9.4-12.3); MONOCYTES ABSOLUTE AUTO 0.6 K/mm3 (0.0-0.8); MONOCYTES PERCENT AUTO 6.3 % (0.0-8.0); NEUTROPHILS ABSOLUTE AUTO 6.8 K/mm3 (1.8-7.7); NEUTROPHILS PERCENT AUTO 71.5 % (41.0-71.0); PLATELET COUNT,PLT 362 K/mm3 (150-400); WHITE BLOOD CELL COUNT,WBC 9.44 K/mm3 (3.9-11.3)
[2024-11-03] MEDS: traMADol 50 MG Tab PO ONE (21:32)
[2024-11-03] MEDS: cefTRIAXone 1 GM Vial IVPUSH ONE (21:32)
[2024-11-03 21:51] LABS: A/G RATIO 0.4 (1-2); ALBUMIN 1.9 g/dl (3.4-5.0); ANION GAP 11.2 (5-15); BILIRUBIN TOTAL 0.5 mg/dL (0.2-1.0); BUN/CREATININE RATIO 13.6 (14-18); CALCIUM 8.1 mg/dL (8.5-10.1); CREATININE 1.1 mg/dL (0.55-1.02); EST CRCL DRUG DOSING (CG) 31.2 mL/min; POTASSIUM,K 4.2 mEq/L (3.5-5.1); PROTEIN TOTAL,TP 6.3 g/dl (6.4-8.2)
[2024-11-03] MEDS: Levofloxacin 750 MG Tab PO ONE (22:23)
[2024-11-03] MEDS: Pantoprazole 40 MG Tab.CR PO ONE (22:23)
[2024-11-03] MEDS: Famotidine 20 MG Tab PO ONE (22:23)
[2024-11-03] MEDS: Aluminum Hydroxide/Magnesium Hydroxide/Simethicone Susp 30 ML Cup PO ONE (22:23)
== END 2024-11-03 22:49 ==
LOC: JD.ED 20:03
DX: N39.0 Urinary tract infection, site not specified (principal); J18.9 Pneumonia, unspecified organism; K21.9 Gastro-esophageal reflux disease without esophagitis; I10 Essential (primary) hypertension; E11.9 Type 2 diabetes mellitus without complications; Z86.16 Personal history of COVID-19; Z79.899 Other long term (current) drug therapy; Z79.01 Long term (current) use of anticoagulants; Z91.041 Radiographic dye allergy status; Z88.0 Allergy status to penicillin; Z88.2 Allergy status to sulfonamides
CPT/HCPCS: 36415; 71046; 80053; 81001; 85025; 87086; 96374; 99284; A9270; J0696; 87088; 87186; 99285; C1758

== ENCOUNTER 2025-01-04 21:23 | Inpatient (IN) | payer MEDICARE ==
[2025-01-04 22:07] LABS: BASOPHILS PERCENT AUTO 0.3 % (0.0-1.0); EOSINOPHILS ABSOLUTE AUTO 0.1 K/mm3 (0.0-0.4); EOSINOPHILS PERCENT AUTO 1.6 % (0.0-6.0); HEMATOCRIT 34.6 % (37.0-47.0); HEMOGLOBIN 10.8 gm/dl (12.0-16.0); IMMATURE GRAN ABSOLUTE AUTO 0.02 K/mm3 (0.00-0.05); IMMATURE GRAN PERCENT AUTO 0.3 % (0.0-0.4); LYMPHOCYTES PERCENT AUTO 41.9 % (24.0-44.0); MEAN CORPUSCULAR HEMOGLOBIN 26.2 pg (28.0-32.0); MEAN CORPUSCULAR HGB CONC 31.2 g/dl (32.0-36.0); MEAN PLATELET VOLUME 10.1 fl (9.4-12.3); MONOCYTES ABSOLUTE AUTO 0.6 K/mm3 (0.0-0.8); MONOCYTES PERCENT AUTO 8.6 % (0.0-8.0); NEUTROPHILS ABSOLUTE AUTO 3.4 K/mm3 (1.8-7.7); NEUTROPHILS PERCENT AUTO 47.3 % (41.0-71.0); PLATELET COUNT,PLT 248 K/mm3 (150-400); RED BLOOD CELL COUNT 4.12 M/mm3 (4.10-5.30); WHITE BLOOD CELL COUNT,WBC 7.09 K/mm3 (3.9-11.3)
[2025-01-04 22:11] LABS: BASE EXCESS VENOUS 1.7 (-4.0-2.0); BICARBONATE,VENOUS 26.6 meq/L (22-26); O2 SATURATION VENOUS 96.4; PH,VENOUS 7.41 (7.30-7.40)
[2025-01-04 22:35] LABS: APPEARANCE,URINE CLEAR (Clear); BILIRUBIN,URINE NEGATIVE (Negative); COLOR,URINE YELLOW (Yellow); GLUCOSE,URINE 1+ (Negative); KETONES,URINE NEGATIVE (Negative); LEUKOCYTE ESTERASE,URINE NEGATIVE (Negative); NITRITE,URINE NEGATIVE (Negative); OCCULT BLOOD,URINE NEGATIVE (Negative); PROTEIN,URINE 1+ (Negative); UROBILINOGEN,URINE 0.2 (0.2-1.0)
[2025-01-04] MEDS: Sodium Chloride 0.9% 500 ML IV ONE (22:38)
[2025-01-04] MEDS: Sodium Chloride 0.9% 10 ML Syringe FLUSH PRN (22:39)
[2025-01-04] MEDS: Acetaminophen 325 MG Tab PO ONE (22:39)
[2025-01-04 22:41] LABS: BACTERIA,URINE MODERATE /hpf (FEW); MUCUS,URINE FEW /hpf (FEW); RBC,URINE 0-5 /hpf (0-5); SQUAMOUS EPITHELIAL CELLS,UR 0-5 /hpf (0-5); WBC,URINE 0-5 /hpf (0-5)
[2025-01-04 22:45] LABS: A/G RATIO 0.6 (1-2); ALBUMIN 2.6 g/dl (3.4-5.0); ANION GAP 11.6 (5-15); BILIRUBIN TOTAL 0.4 mg/dL (0.2-1.0); BUN/CREATININE RATIO 16.7 (14-18); C-REACTIVE PROTEIN 0.19 mg/dL (<0.30); CALCIUM 8.5 mg/dL (8.5-10.1); CREATININE 1.2 mg/dL (0.55-1.02); EST CRCL DRUG DOSING (CG) 26.29 mL/min; POTASSIUM,K 3.6 mEq/L (3.5-5.1); PROTEIN TOTAL,TP 6.7 g/dl (6.4-8.2); TSH 5.571 uIU/mL (0.358-3.74)
[2025-01-04 23:03] LABS: T4 FREE 0.87 ng/dL (0.76-1.46)
[2025-01-04] MEDS: Magnesium Sulf/Wat 4 GM/50 mL 4 GM in Premix Bag 1 BAG IV ONE (23:29)
[2025-01-04] MEDS: Diltiazem 25 MG/5 ML SDV IVPUSH ONE (23:30)
[2025-01-05] MEDS: Metoprolol Tartrate 25 MG Tab PO ONE (02:09)
[2025-01-05 06:01] LABS: BASOPHILS PERCENT AUTO 0.3 % (0.0-1.0); EOSINOPHILS ABSOLUTE AUTO 0.1 K/mm3 (0.0-0.4); EOSINOPHILS PERCENT AUTO 1.9 % (0.0-6.0); HEMATOCRIT 32.8 % (37.0-47.0); HEMOGLOBIN 10.3 gm/dl (12.0-16.0); IMMATURE GRAN ABSOLUTE AUTO 0.02 K/mm3 (0.00-0.05); IMMATURE GRAN PERCENT AUTO 0.3 % (0.0-0.4); LYMPHOCYTES ABSOLUTE AUTO 2.4 K/mm3 (1.0-4.8); LYMPHOCYTES PERCENT AUTO 33.1 % (24.0-44.0); MEAN CORPUSCULAR HEMOGLOBIN 26.1 pg (28.0-32.0); MEAN CORPUSCULAR HGB CONC 31.4 g/dl (32.0-36.0); MEAN PLATELET VOLUME 10.2 fl (9.4-12.3); MONOCYTES ABSOLUTE AUTO 0.6 K/mm3 (0.0-0.8); MONOCYTES PERCENT AUTO 7.6 % (0.0-8.0); NEUTROPHILS ABSOLUTE AUTO 4.2 K/mm3 (1.8-7.7); NEUTROPHILS PERCENT AUTO 56.8 % (41.0-71.0); PLATELET COUNT,PLT 244 K/mm3 (150-400); RED BLOOD CELL COUNT 3.95 M/mm3 (4.10-5.30); WHITE BLOOD CELL COUNT,WBC 7.38 K/mm3 (3.9-11.3)
[2025-01-05 06:50] LABS: ANION GAP 11.4 (5-15); BUN/CREATININE RATIO 17.8 (14-18); CALCIUM 8.9 mg/dL (8.5-10.1); CREATININE 0.9 mg/dL (0.55-1.02); EST CRCL DRUG DOSING (CG) 35.05 mL/min; MAGNESIUM 1.8 mg/dL (1.8-2.4); PHOSPHORUS 3.3 mg/dL (2.6-4.7); POTASSIUM,K 3.4 mEq/L (3.5-5.1)
[2025-01-05] MEDS: Apixaban 2.5 MG Tab PO SCH (09:00)
[2025-01-05] MEDS: Potassium Chloride 20 MEQ Tab.ER PO ONE (09:00)
[2025-01-05] MEDS: Empagliflozin 10 MG Tab PO SCH (09:00)
[2025-01-05] MEDS: Brimonidine 0.2% Ophth Soln 5 ML Bottle EYEBOTH SCH (09:02)
[2025-01-05] MEDS: Timolol Maleate 0.5% Ophth Soln 5 ML Bottle EYEBOTH SCH (09:54)
[2025-01-05] MEDS: Hydrochlorothiazide 12.5 MG Cap PO SCH (09:55)
[2025-01-05] MEDS: Metoprolol Tartrate 50 MG Tab PO SCH (09:55)
[2025-01-05] MEDS: Insulin Lispro 100 Unit/ML 3 ML KwikPen SUBCUT SCH (11:31)
[2025-01-05] MEDS ORDERED: Amitriptyline 25 MG Tab PO SCH (21:00)
[2025-01-05] MEDS ORDERED: Insulin Glargine,Human Rec. Analog 100 Units/ML 3 ML Pen SUBCUT SCH (21:00)
== END 2025-01-05 11:21 | disposition home or self-care (01) | DRG 310 ==
LOC: JD.ED 21:23 → JD.MS 01-05 01:29
PROVIDERS: ADMIT Family Medicine; ATTEND Family Medicine
DX: I48.91 Unspecified atrial fibrillation (principal); E11.65 Type 2 diabetes mellitus with hyperglycemia; E11.9 Type 2 diabetes mellitus without complications; D64.9 Anemia, unspecified; H54.7 Unspecified visual loss; Z88.8 Allergy status to other drugs, medicaments and biological substances; Z91.041 Radiographic dye allergy status; Z66 Do not resuscitate; I10 Essential (primary) hypertension; K21.9 Gastro-esophageal reflux disease without esophagitis; K58.9 Irritable bowel syndrome, unspecified; M19.90 Unspecified osteoarthritis, unspecified site; M79.7 Fibromyalgia; R51.9 Headache, unspecified; F41.9 Anxiety disorder, unspecified; E55.9 Vitamin D deficiency, unspecified; E83.42 Hypomagnesemia; E87.6 Hypokalemia; Z79.4 Long term (current) use of insulin; Z88.0 Allergy status to penicillin; Z79.899 Other long term (current) drug therapy; Z90.710 Acquired absence of both cervix and uterus; Z79.01 Long term (current) use of anticoagulants; Z98.49 Cataract extraction status, unspecified eye; Z87.891 Personal history of nicotine dependence; Z90.49 Acquired absence of other specified parts of digestive tract; Z88.2 Allergy status to sulfonamides
CPT/HCPCS: 36415; 70450; 71045; 72125; 80053; 81001; 82803; 82947 ×2; 83735; 83930; 84439; 84443; 85025; 85652; 86140; 93005 ×2; 96361; 96365; 96366; 96375; 99285; A9270; J3475; J3490; J7030; 80048; 84100; 93010